=== PATIENT | male | born 1985 | race Caucasian/White ===

== ENCOUNTER 2019-08-04 13:53 | Emergency (ER) | payer MEDICAID, SELFPAY ==
[2019-08-04 13:59] VITALS: BP 144/102; PULSE 73; RESP 17; TEMP 36.8; O2SAT 99; BMI 31.6
--- NOTE | 2019-08-04 14:03 | W.ED.BACK ---
HPI - Back Pain/Injury General: Chief Complaint: Back Pain/Injury Stated Complaint: low back pain/tingling l leg Time Seen by Provider: 08/04/19 14:03 Source: patient Mode of arrival: ambulatory Limitations: no limitations History of Present Illness: HPI Narrative: Patient comes in today for complaints of low back pain in the left lower back radiating down his leg. 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 Since that time he has had increasing pain to the lower back now with some radiation and numbness down the left leg. Patient denies any bowel or bladder problems. Patient appears well. Patient reports he had seen his primary care yesterday and started on some 800 ibuprofen and a muscle relaxer but has not noticed much relief today. Review of Systems General: Reports: 10 or more systems reviewed and unremarkable except in HPI and below Musc: Reports: back pain PFSH ED PFSH: Social History Smoking and tobacco status: current every day smoker Physical Exam Const: COMMON NORMALS: no acute distress and patient oriented x3 GENERAL APPEARANCE: cooperative HENMT: COMMON NORMALS: normocephalic, TM's normal bilaterally and Normal external nose present HEAD & SCALP: normal to inspection and normocephalic NOSE: Normal external nose present TYMPANIC MEMBRANE: TM's normal bilaterally MOUTH: Normal oral and palatal mucosa present THROAT: posterior oropharynx normal Eye: GENERAL EYE: appearance normal, both eyes and all related structures Neck/C-Spine: COMMON NORMALS: full ROM Lymph: LYMPHATIC: no lymphadenopathy noted Chest: COMMONS NORMALS: normal inspection of the chest Resp: COMMON NORMALS: normal respiratory effort EFFORT & INSPECTION: Yes able to speak in complete sentences Cardio: COMMON NORMALS: regular rate and regular rhythm RATE: regular rate RHYTHM: regular rhythm GI: COMMON NORMALS: non-tender Back/Pelvis: LUMBAR SPINE/LOWER BACK: Yes paraspinal muscle tenderness Lumbar paraspinal muscle tenderness: left and Yes straight leg raise positive left Straight leg raise positive details left: at 50 degrees Extremity: COMMON NORMALS: normal to inspection Neuro: COMMON NORMALS: patient oriented x3 and moves all extremities Psych: COMMON NORMALS: mental status grossly normal and cooperative Skin: COMMON NORMALS: no rashes or lesions noted GENERAL SKIN EXAM: no rashes or lesions noted Course Vital Signs: Vital signs: Vital Signs Temperature 98.3 F 08/04/19 13:59 Pulse Rate 64 08/04/19 14:41 Respiratory Rate 16 08/04/19 14:41 Blood Pressure 142/74 08/04/19 14:41 Pulse Oximetry 97 08/04/19 14:41 MDM - Back Pain/Injury MDM Narrative: Medical decision making narrative: Patient comes in today for complaints of low back pain with some radiation of numbness and tingling down the left leg. Patient appears well. Patient appears in mild to moderate pain. Patient is ambulatory. Vital signs are normal. Differential diagnosis includes intervertebral disc disease, facet arthropathy, paralumbar muscle strain. X-rays no fracture of the vertebra, some mild retrolisthesis of the L5-S1 area. Reviewed exam with patient recommended treatment with continue to ibuprofen and muscle relaxer. Patient was written a prescription for some hydrocodone to use at bedtime for comfort. Patient was given a dose of dexamethasone ketorolac in the ER for immediate pain and inflammation. Patient was recommended to follow-up with primary care. Patient reported understanding of need for follow-up or return to the ER. Discharge Plan Discharge Patient Disposition: Home, Self-Care Clinical Impression: Lumbar radiculopathy Condition: Stable Prescriptions: New hydrocodone-acetaminophen 5-325 mg tablet 1 tab PO Q8H PRN (Reason: pain, severe) Qty: 6 RF: 0 No Action No Known Home Medications RF: 0 Discharge Orders: Discharge Order (Routine); Ordered 08/04/19 Ordered By: Fredo Weir Referrals: DENISE FLYNN, [employer] OFFICER [Family Provider] - Discharge Diet: Usual diet Discharge Activity: Increase activity as tolerated Patient Instructions: Back Pain (ED) Activity Restrictions/Additional Instructions: Maintain activity. Drink plenty of water with medications. Gentle stretching and range of motion of the back daily. Use ice or heat for further comfort. Follow-up with primary care in 1 week. Return to the ER for high fever or loss of bowel or bladder control. Coding Level of Care Code ED Nuclear Operator for Kelly Alcantara Exam Comprehensive
--- NOTE | 2019-08-04 14:17 | XR_ITS ---
WS: [id number] XR lumbar spine 2-3V* [id number] REASON FOR EXAM: pain, injury FINDINGS: Mild retrolisthesis L5 on S1. Remaining vertebral bodies and disc spaces are normal. The lumbosacral angle was normal. The lamina, pedicle, transverse process, and spinous processes are all normal. The sacroiliac joints appear to be normal. XR/XR lumbar spine 2-3V* [id number] IMPRESSION: Mild retrolisthesis L5 on S1
[2019-08-04] MEDS: dexamethasone 10 mg/mL INJ IM (14:38)
[2019-08-04] MEDS: ketorolac 30 mg/mL INJ IM (14:38)
[2019-08-04 14:41] VITALS: BP 142/74; PULSE 64; RESP 16; O2SAT 97
[2019-08-04 15:15] VITALS: BP 129/74; PULSE 62; RESP 16; TEMP 36.8; O2SAT 96
== END 2019-08-04 15:17 | disposition home or self-care (01) ==
PROVIDERS: Emergency Provider Nurse Practitioner Family; Family Provider Nurse Practitioner Family
DX: M54.16 Radiculopathy, lumbar region (principal); F17.210 Nicotine dependence, cigarettes, uncomplicated
CPT/HCPCS: 12345; 72100; 96372; 99281; 99283; J1100; J1885

== ENCOUNTER 2019-09-24 16:48 | Outpatient (CLI) | payer MEDICAID, SELFPAY ==
--- NOTE | 2019-09-24 | XRR_ITS ---
PROCEDURE INFORMATION: Exam: XR Left Foot Complete Exam date and time: 09/24/2019 5:06 PM Age: 34 years old Clinical indication: Injury or trauma; Injury history: Cart rolled over foot; Work related; Initial encounter; Crushing; Bilateral; Additional info: Pain TECHNIQUE: Imaging protocol: XR Left foot. Views: 3 or more views. COMPARISON: No relevant prior studies available. FINDINGS: Bones/joints: Normal. Soft tissues: There is some mild soft tissue swelling.. XR/XR foot LT min 3V* [id number] IMPRESSION: No acute findings.
== END 2019-09-24 16:49 | disposition home or self-care (01) ==
LOC: RAD 16:51
PROVIDERS: Family Provider Nurse Practitioner Family; Visit Provider Nurse Practitioner Family
DX: M79.672 Pain in left foot (principal)
CPT/HCPCS: 73630

== ENCOUNTER 2019-10-04 19:21 | Emergency (ER) | payer MEDICAID, SELFPAY ==
[2019-10-04 19:33] VITALS: BP 148/97; PULSE 92; RESP 17; TEMP 36.8; O2SAT 98; BMI 32.8
--- NOTE | 2019-10-04 19:40 | XRR_ITS ---
PROCEDURE INFORMATION: Exam: XR Chest, 1 View Exam date and time: 10/04/2019 8:18 PM Age: 34 years old Clinical indication: Type not specified; Patient HX: C/O chest pain starting today TECHNIQUE: Imaging protocol: XR of the chest Views: 1 view. COMPARISON: CR Chest 1 [place] [id number] 10/28/2018 9:58 PM FINDINGS: Lungs: Mild interstitial prominence without acute airspace disease. Pleural space: No pleural effusion. Heart/Mediastinum: No cardiomegaly. Bones/joints: Unremarkable. Soft tissues: 4 mm nodular metallic density overlying the right axillary region. When correlating with the previous study, no significant interval changes are present. XR/XR chest 1V portable [id number] IMPRESSION: No acute airspace or pleural disease.
--- NOTE | 2019-10-04 19:40 | ECG_ITS ---
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 Measurements Intervals [place] Rate: 91 P: 64 IL: 152 QRS: 17 QRSD: 96 T: 33 QT: 330 QTc: 408 Interpretive Statements SINUS RHYTHM INCOMPLETE RIGHT BUNDLE BRANCH BLOCK [90+ ms QRS DURATION, TERMINAL R IN V1/V2, 40+ ms S IN I/aVL/V4/V5/V6] NONSPECIFIC T-WAVE ABNORMALITY Compared to ECG 07/17/2018 23:06:05 T-wave abnormality now present Electronically Signed On 10-04-2019 20:34:40 CDT by Claudia Nicole M.D. [id number]
[2019-10-04 19:47] VITALS: BP 138/93; PULSE 85; RESP 14; O2SAT 99
[2019-10-04 19:54] LABS: Basophils # 0.1 10^3/uL (0.0-0.1); Basophils % 0.8 %; Eosinophils # 0.3 10^3/uL (0.0-0.8); Eosinophils % 4.1 %; Hematocrit 45.3 % (42.0-52.0); Hemoglobin 14.9 g/dL (11.7-16.6); Lymphocytes % 30.9 %; Mean Corpuscular HGB Conc 32.9 g/dL (30.0-36.0); Mean Corpuscular Hemoglobin 29.6 pg (28.0-34.0); Mean Corpuscular Volume 89.9 fL (80-94); Mean Platelet Volume 11.5 fL (7.4-10.4); Monocytes # 0.5 10^3/uL (0.2-0.9); Monocytes % 7.8 %; Neutrophils # 3.67 10^3/uL (1.8-7.7); Neutrophils % 56.1 %; Nucleated Red Blood Cells % 0 %; Platelet Count 282 10^3/cmm (130-400); Red Blood Count 5.04 10^6/uL (4.1-5.3); White Blood Count 6.5 10^3/uL (4.0-10.0)
--- NOTE | 2019-10-04 20:06 | ED_ITS ---
HPI - Chest Pain General: Chief Complaint: Chest Pain Stated Complaint: cp Time Seen by Provider: 10/04/19 19:39 History of Present Illness: HPI narrative: This patient is a 34-year-old male presenting with chest pain. He works overnight and was working last night about 1:00 a.m. After eating lunch and smoking a cigarette he developed sudden onset of substernal chest pain that caused him to feel lightheaded. 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 It worsened over time and he was sweating and short of breath. He got sent home from work but was unable to sleep due to discomfort. He said the pain has been constant all day long and only relieved slightly by rest. He had a heart attack about a year ago. He had a cardiac cath at [facility] in [place] but did not have a stent placed. He said they told him that they could see where the blockage had been but it was gone when they got to it. He was put on blood pressure medicine which she is no longer taking. He continues to smoke. His pain today feels similar to when he had the heart attack. MD complaint: chest pain Pertinent past history: prior NE Onset (ago): hour(s) (18) Timing of current episode: constant Prior episodes: Yes Onset: during rest and after eating Pain radiation: left arm Quality: tightness, aching and heaviness Associated symptoms: Deny abdominal pain, dyspnea, fever(s), nausea or vomiting Review of Systems General: Reports: 10 or more systems reviewed and unremarkable except in HPI and below Const: Denies: fever(s), chills, fatigue or malaise Eyes: Denies: change in vision ENMT: Denies: odynophagia Card: Denies: chest pain or swelling of feet/ankles Resp: Denies: dyspnea, productive cough or non-productive cough GI: Denies: abdominal pain, nausea or vomiting : Denies: flank pain Musc: Denies: neck pain or back pain Skin/Breast: Denies: rash Neuro: Denies: headache(s), numbness in extremities or weakness in extremities Donnie/Lymph: Denies: easy bruising or easy bleeding PFSH ED PFSH: Social History Smoking and tobacco status: current every day smoker Physical Exam Const: COMMON NORMALS: no acute distress, patient oriented x3, no limitations and alert GENERAL APPEARANCE: cooperative and comfortable HENMT: HEAD & SCALP: normal to inspection FACE & SINUS: normal facial exam Eye: GENERAL EYE: appearance normal, both eyes and all related structures Neck/C-Spine: COMMON NORMALS: supple, no meningeal signs and no JVD Chest: COMMONS NORMALS: normal inspection of the chest Resp: COMMON NORMALS: normal respiratory effort, No use of accessory muscles and clear to auscultation bilaterally AUSCULTATION: clear to auscultation bilaterally Cardio: COMMON NORMALS: no JVD, regular rate, regular rhythm and No murmurs present (Cardio) RATE: regular rate RHYTHM: regular rhythm GI: COMMON NORMALS: Normal to inspection, nondistended, normoactive bowel sounds present, Soft to palpation and non-tender INSPECTION: Yes normal to inspection AUSCULTATION: Yes normoactive bowel sounds PALPATION: Yes Soft to palpation Back/Pelvis: COMMON NORMALS: thoracic and lumbar spine normal to inspection Extremity: COMMON NORMALS: normal to inspection Neuro: COMMON NORMALS: patient oriented x3, moves all extremities, no focal motor deficits and no sensory deficits noted SENSORIUM/ORIENTATION: Yes alert MENINGEAL SIGNS: Yes no meningeal signs Psych: COMMON NORMALS: mental status grossly normal, cooperative and normal affect Skin: COMMON NORMALS: no rashes or lesions noted and turgor normal GENERAL SKIN EXAM: no rashes or lesions noted and turgor normal Course ED course: This patient presents with chest pain. He reports that he had a heart attack a year ago and had a cath but no stenting. He has been having constant pain all day. I suspect this may be more gastric in origin than cardiac. EKG and troponins were negative. We discussed that he should be foll owing up with a licensed club manager and have stress testing if he continues to have any symptoms. We will try treating gastritis empirically. Vital Signs: Vital signs: Vital Signs Temperature 98.2 F 10/04/19 19:33 Pulse Rate 65 10/04/19 22:30 Respiratory Rate 16 10/04/19 22:30 Blood Pressure 114/75 10/04/19 22:30 Pulse Oximetry 99 10/04/19 22:30 MDM - Chest Pain Lab Data: Labs: Lab Results 10/04/19 10/04/19 10/04/19 Range/Units 19:48 19:48 19:48 WBC 6.5 (4.0-10.0) 10^3/ uL RBC 5.04 (4.1-5.3) 10^6/u L Hgb 14.9 (11.7-16.6) g/dL Hct 45.3 (42.0-52.0) % MCV 89.9 (80-94) fL MCH 29.6 (28.0-34.0) pg MCHC 32.9 (30.0-36.0) g/dL RDW 12.0 L (12.1-15.1) % Plt Count 282 (130-400) 10^3/c mm MPV 11.5 H (7.4-10.4) fL Neut % (Auto) 56.1 % Lymph % (Auto) 30.9 % Bond % (Auto) 7.8 % Eos % (Auto) 4.1 % Baso % (Auto) 0.8 % Neut # (Auto) 3.67 (1.8-7.7) 10^3/u L Lymph # (Auto) 2.0 (0.8-4.8) 10^3/u L Bond # (Auto) 0.5 (0.2-0.9) 10^3/u L Eos # (Auto) 0.3 (0.0-0.8) 10^3/u L Baso # (Auto) 0.1 (0.0-0.1) 10^3/u L Nucleated RBC % (a uto) 0 % Nucleated RBCs # 0.0 /100WBC Sodium 136 (136-145) mmol/L Potassium 3.9 (3.5-5.1) mmol/L Chloride 99 (98-107) mmol/L Carbon Dioxide 26 (22-29) mmol/L Anion Gap 14.9 (5-19) BUN 12 (6-20) mg/dL Creatinine 0.9 (0.7-1.2) mg/dL GFR Calculation 95.5 (90-130) mL/min Glucose 104 (65-115) mg/dL Calculated Osmolal ity 278 L (285-295) mOsm/k g Calcium 9.2 (8.5-10.5) mg/dL Total Bilirubin 0.5 (0.15-1.2) mg/dL AST 20 (0-40) U/L ALT 40 (0-41) U/L Alkaline Phosphata se 60 (40-130) IU/L Troponin T Baselin e 6 (0-15) ng/L Troponin T 120 Min chilkoot (0-15) ng/L Delta Troponin T (0-10) ABS# Total Protein 7.2 (6.6-8.7) g/dL Albumin 5.0 (3.5-5.2) g/dL Globulin 2.2 (1.3-4.6) g/dL Lipase 23 (13-60) U/L 10/04/19 Range/Units 22:00 WBC (4.0-10.0) 10^3/ uL RBC (4.1-5.3) 10^6/u L Hgb (11.7-16.6) g/dL Hct (42.0-52.0) % MCV (80-94) fL MCH (28.0-34.0) pg MCHC (30.0-36.0) g/dL RDW (12.1-15.1) % Plt Count (130-400) 10^3/c mm MPV (7.4-10.4) fL Neut % (Auto) % Lymph % (Auto) % Bond % (Auto) % Eos % (Auto) % Baso % (Auto) % Neut # (Auto) (1.8-7.7) 10^3/u L Lymph # (Auto) (0.8-4.8) 10^3/u L Bond # (Auto) (0.2-0.9) 10^3/u L Eos # (Auto) (0.0-0.8) 10^3/u L Baso # (Auto) (0.0-0.1) 10^3/u L Nucleated RBC % (a uto) % Nucleated RBCs # /100WBC Sodium (136-145) mmol/L Potassium (3.5-5.1) mmol/L Chloride (98-107) mmol/L Carbon Dioxide (22-29) mmol/L Anion Gap (5-19) BUN (6-20) mg/dL Creatinine (0.7-1.2) mg/dL GFR Calculation (90-130) mL/min Glucose (65-115) mg/dL Calculated Osmolal ity (285-295) mOsm/k g Calcium (8.5-10.5) mg/dL Total Bilirubin (0.15-1.2) mg/dL AST (0-40) U/L ALT (0-41) U/L Alkaline Phosphata se (40-130) IU/L Troponin T Baselin e (0-15) ng/L Troponin T 120 Min chilkoot 6.00 (0-15) ng/L Delta Troponin T 0 (0-10) ABS# Total Protein (6.6-8.7) g/dL Albumin (3.5-5.2) g/dL Globulin (1.3-4.6) g/dL Lipase (13-60) U/L Discharge Plan Discharge Patient Disposition: Home Clinical Impression: Chest pain Qualifiers: Chest pain type: unspecified Qualified Code(s): R07.9 - Chest pain, unspecified Gastritis Qualifiers: Gastritis type: unspecified gastritis Chronicity: acute Gastritis bleeding: presence of bleeding unspecified Qualified Code(s): K29.00 - Acute gastritis without bleeding Condition: Stable Prescriptions: New omeprazole 40 mg capsule,delayed release(DR/EC) 40 mg PO DAILY 56 Days Qty: 60 RF: 0 No Action hydrocodone-acetaminophen 5-325 mg tablet 1 tab PO Q8H PRN (Reason: pain, severe) Qty: 6 RF: 0 Discharge Orders: Discharge Order (Routine); Ordered 10/04/19 Ordered By: Joyce Johnson Referrals: DENISE FLYNN, WASTE WATER OR WATER PLANT OPERATOR [Primary Care Provider] - Discharge Diet: Low Fat Discharge Activity: Resume usual activity Patient Instructions: Chest Pain (ED), Gastritis (ED) Activity Restrictions/Additional Instructions: Possible further testing given your history of heart problems. Rest. Avoid spicy or fatty foods. Quit smoking. Avoid taking ibuprofen or naproxen as these can irritate your stomach. Take the omeprazole as prescribed. Return to the emergency department if new or worse symptoms occur. Follow-up with your primary care provider within the next few days Stand Alone Forms: Work/School Release Discharge Date/Time: 10/04/19 23:11 Coding Level of Care Code ED Courtroom Clerk for Kelly Fwd Exam Comprehensive
[2019-10-04 20:15] LABS: Alanine Aminotransferase 40 U/L (0-41); Alkaline Phosphatase 60 IU/L (40-130); Anion Gap 14.9 (5-19); Aspartate Amino Transferase 20 U/L (0-40); Blood Urea Nitrogen 12 mg/dL (6-20); Calcium 9.2 mg/dL (8.5-10.5); Carbon Dioxide 26 mmol/L (22-29); Chloride 99 mmol/L (98-107); Globulin 2.2 g/dL (1.3-4.6); Glomerular Filtration Rate 95.5 mL/min (90-130); Glucose 104 mg/dL (65-115); Lipase 23 U/L (13-60); Osmolality Calculated 278 mOsm/kg (285-295); Potassium 3.9 mmol/L (3.5-5.1); Sodium 136 mmol/L (136-145); Total Bilirubin 0.5 mg/dL (0.15-1.2); Total Protein 7.2 g/dL (6.6-8.7)
[2019-10-04 20:18] LABS: Troponin(5th) Baseline 6 ng/L (0-15)
[2019-10-04 20:24] VITALS: RESP 14; O2SAT 99
[2019-10-04] MEDS: ondansetron 2 mg/ML SDV 2 mL 4 MG IVP (20:24)
[2019-10-04] MEDS: morphine 4 mg/mL SDV 1 mL IVP (20:24)
[2019-10-04] MEDS: famotidine 20 mg/2 mL INJ 40 MG IVP (20:25)
[2019-10-04 20:30] VITALS: BP 134/84; PULSE 73; RESP 15; O2SAT 99
[2019-10-04 21:30] VITALS: BP 138/81; PULSE 72; RESP 18; O2SAT 99
--- NOTE | 2019-10-04 21:40 | ECG_ITS ---
[facility] Test Date: 2019-10-04 Pat Name: Elian Parson Department: Room: Gender: Male Behavioral Pediatrician: : 1985 Requested By: Joyce Delgado Order Number: [id number] Landry MD: Diamond Larry M.D. Measurements Intervals [place] Rate: 60 P: 45 ID: [id number] QRS: 18 QRSD: 105 T: 31 QT: 400 QTc: 402 Interpretive Statements SINUS RHYTHM Compared to ECG 10/04/2019 19:31:56 Incomplete right bundle-branch block no longer present T-wave abnormality no longer present Electronically Signed On 10-05-2019 12:56:24 CDT by Diamond Larry M.D. [email or web address] [email or web address]/store/OM/[id number]
--- NOTE | 2019-10-04 21:57 | PC.NURSE ---
EKG done at 2155 and shown to ER doctor
[2019-10-04 22:24] LABS: Troponin 5 2HR Delta 0 ABS# (0-10)
[2019-10-04 22:30] VITALS: BP 114/75; PULSE 65; RESP 16; O2SAT 99
[2019-10-04] MEDS: lidocaine 2% viscous 15 ML, aluminum-mag hydrox-simethicon 30 ML, sucralfate oral liq 1 GM PO (22:59)
== END 2019-10-04 23:11 | disposition home or self-care (01) ==
PROVIDERS: Emergency Provider Emergency Medicine; PCP Nurse Practitioner Family
DX: R07.9 Chest pain, unspecified (principal); K29.00 Acute gastritis without bleeding; F17.210 Nicotine dependence, cigarettes, uncomplicated
CPT/HCPCS: 12345; 36415; 71045; 80053; 83690; 84484; 85025; 93005; 96374; 96375; 99283; 99284; J2270; J2405; J3490

== ENCOUNTER 2019-10-12 12:05 | Outpatient (CLI) | payer MEDICAID, SELFPAY ==
[2019-10-12 12:15] VITALS: BMI 31.3
--- NOTE | 2019-10-12 12:16 | ECG_ITS ---
[facility] Test Date: 2019-10-12 Pat Name: Elian Parson Department: Room: Gender: Male Machine Technician: : 1985 Requested By: DENISE Mendoza Order Number: [id number] Landry MD: Eder Mcleod M.D. Interpretive Statements NAME OF STUDY: TREADMILL STRESS TEST INDICATION: Exertional Chest Pain/SOB/HTN/FAMILY H/O CAD, EXERCISE DATA: The patient was exercised by [employer] protocol. Baseline heart rate was 70 beats per minute. Baseline blood pressure was 125/71 millimeters of mercury. Target heart rate was 184 beats per minute. Maximum heart rate achieved was 165, which was 89 % of the target heart rate. Maximum blood pressure was 213/75 millimeters of mercury. Total exercise time was 6 minutes 45. Maximum METs achieved was 10.2, maximum VO2 was 35.7. The reason for ending the test was maximum effort achieved. The patient complained of shortness of during the stress test, which then resolved at the end of the test. ELECTROCARDIOGRAM: BASELINE: Sinus rhythm, normal axis, incomplete right bundle branch block. EXERCISE: At the peak exercise level, no significant ST-T changes suggestive of ischemia noted. RECOVERY: During the recovery period, heart rate dropped appropriately. No significant ST-T changes in the recovery suggestive of ischemia noted. CONCLUSION: 1. Exercise capacity fair. 2. Heart rate response was appropriate. 3. Blood pressure response was hypertensive 4. Symptoms not suggestive of ischemia. 5. Electrocardiogram portion of the stress test was not suggestive of ischemia. Electronically Signed On 10-12-2019 22:28:39 CDT by Eder Mcleod M.D. [email or web address]/[id number]
--- NOTE | 2019-10-12 12:17 | USCV_ITS ---
Elian Parson Age: 34 Gender: M : 1985 Exam Date: 10/12/2019 12:34 Ordering Phys: DENISE FLYNN Technologist: Jelani Helms Exam Location: [facility] Indication: CHEST PAIN BP: 125 / 71 HR: 87 Rhythm: Sinus Technical Quality: Adequate MEASUREMENTS (Male / Female) Normal Values 2D ECHO LV Diastolic Diameter PLAX 4.2 cm 4.2 - 5.9 / 3.9 - 5.3 cm LV Systolic Diameter PLAX 2.9 cm IVS Diastolic Thickness 0.9 cm 0.6 - 1.0 / 0.6 - 0.9 cm IVS Systolic Thickness 1.1 cm LVPW Diastolic Thickness 0.9 cm 0.6 - 1.0 / 0.6 - 0.9 cm LVPW Systolic Thickness 1.0 cm LVOT Diameter 2.0 cm LV Ejection Fraction 2D Teich 58.5 % LV Ejection Fraction MOD 2C 57.0 % LV Ejection Fraction 2C AL 58.0 % LA Diameter 3.0 cm LA Width 3.9 cm LA Height 3.7 cm RA Width 3.2 cm RA Height 5.1 cm Aorta at Sinotubular Diameter 1.1 cm M-MODE LV Diastolic Diameter MM 4.7 cm 4.2 - 5.9 / 3.9 - 5.3 cm LV Systolic Diameter MM 2.9 cm LV Ejection Fraction MM Teich 70.0 % IVS Diastolic Thickness MM 1.2 cm 0.6 - 1.0 / 0.6 - 0.9 cm IVS Systolic Thickness MM 1.7 cm LVPW Diastolic Thickness MM 1.1 cm 0.6 - 1.0 / 0.6 - 0.9 cm LVPW Systolic Thickness MM 1.6 cm RV Diastolic Diameter MM 1.8 cm Aortic Annulus Diameter 2.9 cm LA Ao Ratio MM 1.0 MV E Point Septal Separation 0.8 cm DOPPLER AV Peak Velocity 125.0 cm/s LVOT Peak Velocity 86.0 cm/s AV Area Cont Eq vti 2.1 cm squared AV Area Cont Eq pk 2.2 cm squared MV Area PHT 5.0 cm squared Mitral E to A Ratio 1.2 MV E' Velocity 64.0 cm/s Mitral E to MV E' Ratio 4.7 Mitral E to LV E' Lateral Ratio 3.6 Mitral E to LV E' Septal Ratio 6.6 TR Peak Velocity 156.0 cm/s TR Peak Gradient 9.7 mmHg TV Peak E Velocity 92.0 cm/s Right Atrial Pressure 3.0 mmHg Pulmonary Artery Systolic Pressu 12.7 mmHg PV Peak Velocity 125.0 cm/s FINDINGS Left Ventricle Normal left ventricular cavity size. Normal left ventricular systolic function. No regional wall motion abnormalities. Left ventricular ejection fraction is estimated at 60 %. Normal diastolic function. Right Ventricle The right ventricle is normal in size and function. Right Atrium The right atrium is normal in size. Left Atrium The left atrium is normal in size. Mitral Valve Structurally normal mitral valve without significant stenosis or prolapse. There is no mitral regurgitation. Aortic Valve Structurally normal aortic valve without significant sclerosis or stenosis. There is no aortic regurgitation. Tricuspid Valve Mild tricuspid valve regurgitation. Pulmonic Valve Structurally normal pulmonic valve without significant stenosis. There is no pulmonic regurgitation. Pericardium Normal pericardium without effusion. Aorta Normal ascending aorta dimension. CONCLUSIONS 1-Normal left ventricular cavity size. Normal left ventricular systolic function. No regional wall motion abnormalities. Left ventricular ejection fraction is estimated at 60 %. Normal diastolic function. 2-There is no pericardial effusion. 3-No significant valve abnormalities. 4-Pulmonary artery systolic pressure is within normal limits. 5-Right atrial pressure is around 5 mm of mercury. 6-No significant change since the prior echocardiogram study of 01/13/2017. Eder Mcleod MD (Electronically Signed) Final Date: 12 October 2019 20:21 S
[2019-10-12 12:42] VITALS: BP 163/99; PULSE 98
== END 2019-10-12 12:06 | disposition home or self-care (01) ==
LOC: CDL 12:07
PROVIDERS: PCP Nurse Practitioner Family; Visit Provider Nurse Practitioner Family
DX: R07.89 Other chest pain (principal); Z82.49 Family history of ischemic heart disease and other diseases of the circulatory system; F17.209 Nicotine dependence, unspecified, with unspecified nicotine-induced disorders; R06.02 Shortness of breath; I10 Essential (primary) hypertension
CPT/HCPCS: 93017; 93306

== ENCOUNTER 2020-01-06 12:55 | Outpatient (CLI) | payer MEDICAID, SELFPAY ==
--- NOTE | 2020-01-06 13:06 | XR_ITS ---
WS: [id number] XR ribs RT 2V* [id number] REASON FOR EXAM: injury with pain FINDINGS: No fracture or other focal rib abnormality is identified. No abnormality within the right lung. XR/XR ribs RT 2V* [id number] IMPRESSION: No significant abnormality.
== END 2020-01-06 12:56 | disposition home or self-care (01) ==
LOC: RAD 13:04
PROVIDERS: PCP Nurse Practitioner Family; Visit Provider Nurse Practitioner
DX: S20.211A Contusion of right front wall of thorax, initial encounter (principal); X58.XXXA Exposure to other specified factors, initial encounter
CPT/HCPCS: 71100

== ENCOUNTER 2020-01-19 12:54 | Emergency (ER) | payer MEDICAID, SELFPAY ==
[2020-01-19 13:00] VITALS: BP 148/97; PULSE 83; RESP 18; TEMP 36.5; O2SAT 98; BMI 29.7
--- NOTE | 2020-01-19 13:24 | W.ED.BACK ---
HPI - Back Pain/Injury General: Chief Complaint: Back Pain/Injury Stated Complaint: BACK INJURY 1 MO AGO, SYMPTOMS GETTING WORSE Time Seen by Provider: 01/19/20 13:17 History of Present Illness: HPI Narrative: Patient is a 34-year-old male comes to the ED with lower back pain. He initially injured back approximately 4 to 5 months ago and was seen here in the ED for same complaint on August 03. He says his pain in his lower back is continue to get worse and he seen his PCP and she has put him on muscle relaxers they are not helping. The last couple days patient has had 2 episodes where he had a says that his legs give out on him any falls down onto his tailbone. He says he has pain that radiates down both legs and pain is a 10 out of 10. Denies any pelvic anesthesia, bladder or bowel incontinence, weakness to extremities. Patient says he took Tylenol recently for pain. Associated symptoms: Deny abdominal pain, chills, dysuria, fatigue, fever(s), hematuria, nausea or vomiting Review of Systems Const: Denies: fever(s), chills or fatigue Eyes: Denies: change in vision or eye discomfort ENMT: Denies: throat pain, odynophagia, nasal discharge or nasal congestion Card: Denies: chest pain, palpitations, edema, swelling of feet/ankles, dyspnea on exertion or orthopnea Resp: Denies: dyspnea, productive cough or non-productive cough GI: Denies: abdominal pain, nausea, vomiting, diarrhea, constipation or hematochezia : Denies: flank pain, difficulty urinating, dysuria or hematuria Musc: Reports: back pain; Denies: neck pain or extremity swelling Skin/Breast: Denies: rash or new lesions Neuro: Denies: headache(s), numbness in extremities or weakness in extremities PFS ED PFSH: Social History Smoking and tobacco status: current every day smoker Physical Exam Const: COMMON NORMALS: no acute distress, patient oriented x3 and alert GENERAL APPEARANCE: cooperative and comfortable HENMT: COMMON NORMALS: normocephalic HEAD & SCALP: normocephalic MOUTH: Normal oral and palatal mucosa present THROAT: posterior oropharynx normal and uvula midline Eye: COMMON NORMALS: Equal, round and reactive pupils present PUPIL: Yes Equal, round and reactive pupils present Neck/C-Spine: COMMON NORMALS: supple GENERAL: Yes normal visual inspection Resp: COMMON NORMALS: normal respiratory effort, No retractions, No use of accessory muscles and clear to auscultation bilaterally AUSCULTATION: clear to auscultation bilaterally Cardio: COMMON NORMALS: regular rate, regular rhythm, S1 normal heart sound present, S2 normal heart sound present, No gallops present (Cardio), No clicks present (Cardio), No murmurs present (Cardio) and Peripheral pulses 2+ throughout RATE: regular rate RHYTHM: regular rhythm HEART SOUNDS: S1 normal heart sound present and S2 normal heart sound present PERIPHERAL PULSES: Peripheral pulses 2+ throughout GI: COMMON NORMALS: Normal to inspection, nondistended, normoactive bowel sounds present, Soft to palpation, non-tender and no masses PALPATION: Yes Soft to palpation : COMMON NORMALS: Yes no CVA tenderness BLADDER/KIDNEY EXAM: Yes no CVA tenderness Back/Pelvis: COMMON NORMALS: no CVA tenderness LUMBAR SPINE/LOWER BACK: Yes pain with ROM, Yes lumbar spinal tenderness Lumbar spinal tenderness location: L4 and L5 and Yes paraspinal muscle tenderness Extremity: COMMON NORMALS: normal to inspection Neuro: COMMON NORMALS: patient oriented x3 and moves all extremities SENSORIUM/ORIENTATION: Yes alert Skin: GENERAL SKIN EXAM: dry skin Course Vital Signs: Vital signs: Vital Signs Temperature 97.7 F 01/19/20 13:00 Pulse Rate 83 01/19/20 13:00 Respiratory Rate 18 01/19/20 13:00 Blood Pressure 148/97 01/19/20 13:00 Pulse Oximetry 98 01/19/20 13:00 MDM - Back Pain/Injury MDM Narrative: Medical decision making narrative: Patient is a 34-year-old male comes to the ED with lower back pain. Patient says he injured back several months ago after doing some heavy lifting. He has been seen here before for same complaint on August 03. He has had 2 recent instances where his legs gave out on him and he fell down and hit his tailbone. Denies any cauda equina symptoms. He does say the pain radiates down into both legs. CT of the lumbar spine was performed and showed no acute fractures and there is moderate size disc protrusion at L5 and S1 with minimal contact of S1 nerve root. Patient was diagnosed with lumbar radiculopathy and sent home with a prescription for methocarbamol and Medrol Dosepak. Follow-up with PCP in 7 to 10 days for reevaluation. Return to ED precautions given. Patient understood and agreed with plan. Imaging Data^: Other CT: Attestation: I personally reviewed and interpreted this imaging study as follows: Radiologist's impression: [address] [address] [address] Scan Report Signed Patient: Elian Parson Unit #: [id number] : 1985 Age/Sex: 34 / M ADM Date: 01/19/20 Loc: ER Room/Bed: Attending Dr: Ordering Provider/Ordering MD: Jamie Pritchett Date of Service: 01/19/20 Procedure(s): CT lumbar spine wo con* [id number] Accession Number(s): [id number] Report Number: [id number] WS: [id number] CT LUMBAR SPINE, noncontrast. HISTORY: lumbar spine tenderness with injury TECHNIQUE: Contiguous 2.5 mm axial imaging are performed. Sagittal and coronal reformats are submitted and reviewed. All CT scans at [facility] use at least one of these dose opt imization techniques: automated exposure control; mA and/or kV adjustment per patient size (includes targeted exams where dose is matched to clinical indication); or iterative reconstruction. IV contrast: None DLP: 2524.46 mGy.cm COMPARISON: None available. Normal lumbar alignment with no loss of disc space height or vertebral body height. L1-2: Normal. L2-3: Normal. L3-4: Normal. L4-5: Normal. L5-S1: Moderate-sized central disc protrusion contacting the ventral thecal sac. There is very slight contact also on the S1 nerve roots bilaterally, RIGHT greater than LEFT with no displacement. No significant stenosis. Bilateral nephrolithiasis. No obstruction. CT/CT lumbar spine wo con* [id number] IMPRESSION: 1. No acute lumbar spine fracture. 2. Moderate size central disc protrusion at L5-S1 with minimal contact but no displacement on the S1 nerve roots. Dictated By: Mónica Camacho DO Signed By: Mónica Camacho DO Signed Date/Time: 01/19/20 1457 DD/ 1453 Discharge Plan Discharge Patient Disposition: Home Clinical Impression: Lumbar radiculopathy Condition: Stable Prescriptions: New Medrol (Parviz) 4 mg tablets,dose pack See Rx Instructions .ROUTE .COMPLEX Qty: 21 RF: 0 methocarbamol 750 mg tablet 750 mg PO Q8H Qty: 30 RF: 0 No Action cyclobenzaprine 10 mg tablet 10 mg PO BID PRN (Reason: muscle spasm) Qty: 10 RF: 0 Discharge Orders: Discharge Order (Routine); Ordered 01/19/20 Ordered By: Jamie Pritchett Referrals: DENISE FLYNN FNP [Primary Care Provider] - Discharge Diet: Regular Discharge Activity: Increase activity as tolerated Patient Instructions: Lumbar Radiculopathy (ED) Activity Restrictions/Additional Instructions: Follow-up with medical provider as directed in 7 to 10 days. Take medications as prescribed. Take [id number] Tylenol to help with pain. Apply cold pack on lower back. Stretch lower back daily to help with symptoms as well. Return to the ER or your medical provider if condition worsens. Please read and understand discharge instructions. If any questions, please ask. Coding Level of Care Code ED Police [employer] Dispatcher for Kelly Fwbrian Exam Comprehensive
--- NOTE | 2020-01-19 13:36 | CT_ITS ---
WS: [id number] CT LUMBAR SPINE, noncontrast. HISTORY: lumbar spine tenderness with injury TECHNIQUE: Contiguous 2.5 mm axial imaging are performed. Sagittal and coronal reformats are submitte d and reviewed. All CT scans at [facility] use at least one of these dose optimization te chniques: automated exposure control; mA and/or kV adjustment per patient size (includes targeted exa ms where dose is matched to clinical indication); or iterative reconstruction. IV contrast: None DLP: 2524.46 mGy.cm COMPARISON: None available. Normal lumbar alignment with no loss of disc space height or vertebral body height. L1-2: Normal. L2-3: Normal. L3-4: Normal. L4-5: Normal. L5-S1: Moderate-sized central disc protrusion contacting the ventral thecal sac. There is very slight contact also on the S1 nerve roots bilaterally, RIGHT greater than LEFT with no displacement. No sig nificant stenosis. Bilateral nephrolithiasis. No obstruction. CT/CT lumbar spine wo con* [id number] IMPRESSION: 1. No acute lumbar spine fracture. 2. Moderate size central disc protrusion at L5-S1 with minimal contact but no displacement on the S1 nerve roots.
[2020-01-19] MEDS: ketorolac 60 mg/2 mL INJ IM (13:47)
[2020-01-19] MEDS: HYDROcodone-acetaminophen 7.5-325 mg Tablet 1 TAB PO (15:25)
== END 2020-01-19 15:28 | disposition home or self-care (01) ==
PROVIDERS: Emergency Provider Physician Assistant; PCP Nurse Practitioner Family
DX: M54.16 Radiculopathy, lumbar region (principal); F17.210 Nicotine dependence, cigarettes, uncomplicated
CPT/HCPCS: 12345; 72131; 96372; 99281; 99283; J1885; J2930

== ENCOUNTER 2020-03-07 10:47 | Outpatient (RCR) | payer BC, MEDICAID, SELFPAY | END 2020-04-02 23:59 | disposition home or self-care (01) | LOC: SPT 10:47 | PROVIDERS: PCP Nurse Practitioner Family; Referring Provider Family Medicine; Visit Provider Family Medicine | DX: M54.16 Radiculopathy, lumbar region (principal); G89.29 Other chronic pain; I10 Essential (primary) hypertension | CPT/HCPCS: 97161 ==

== ENCOUNTER 2020-04-23 15:54 | Emergency (ER) | payer BC, MEDICAID, SELFPAY ==
[2020-04-23 16:03] VITALS: BP 142/80; PULSE 82; RESP 16; TEMP 36.6; O2SAT 98; BMI 30.4
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
[2020-04-23] MEDS: fluorescein 1 mg Strip EYE-LEFT (17:00)
[2020-04-23] MEDS: tetracaine 0.5% Op Soln 4 mL Btl 1 DROP EYE-LEFT (17:00)
[2020-04-23 18:07] VITALS: RESP 18
== END 2020-04-23 18:07 | disposition home or self-care (01) ==
PROVIDERS: Emergency Provider Family Medicine; PCP Nurse Practitioner Family
DX: S05.12XA Contusion of eyeball and orbital tissues, left eye, initial encounter (principal); H53.8 Other visual disturbances; F17.210 Nicotine dependence, cigarettes, uncomplicated; W20.8XXA Other cause of strike by thrown, projected or falling object, initial encounter; Y99.0 Civilian activity done for income or pay
CPT/HCPCS: 70480; 99283

== ENCOUNTER 2020-08-09 18:54 | Emergency (ER) | payer BC, MEDICAID, SELFPAY ==
[2020-08-09] VITALS (7 sets, daily range): BP systolic 113–140; BP diastolic 76–81; PULSE 60–74; RESP 12–23; TEMP 36.9; O2SAT 94–100; BMI 29.0
--- NOTE | 2020-08-09 18:58 | XRR_ITS ---
PROCEDURE INFORMATION: Exam: XR Chest Exam date and time: 08/09/2020 7:01 PM Age: 35 years old Clinical indication: Other: Chest pain; Additional info: Cp TECHNIQUE: Imaging protocol: XR of the chest. Views: 1 view. COMPARISON: CR XR chest 1V portable [id number] 10/04/2019 8:08 PM FINDINGS: Lungs: Unremarkable. No consolidation. Pleural spaces: Unremarkable. No pleural effusion. No pneumothorax. Heart/Mediastinum: Unremarkable. No cardiomegaly. Bones/joints: Unremarkable. Soft tissues: Small round metallic foreign body is again seen projected over the right scapula not significantly changed. XR/XR chest 1V portable [id number] IMPRESSION: No acute findings.
--- NOTE | 2020-08-09 18:58 | ECG_ITS ---
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 Measurements Intervals [place] Rate: 62 P: 49 TX: 165 QRS: 34 QRSD: 99 T: 29 QT: 405 QTc: 412 Interpretive Statements SINUS RHYTHM Compared to ECG 10/04/2019 21:55:44 No significant changes Electronically Signed On 08-10-2020 17:06:18 CDT by Freddy Romero M.D. [id number]
--- NOTE | 2020-08-09 18:59 | ED_ITS ---
HPI - Chest Pain General: Chief Complaint: Chest Pain Stated Complaint: CHEST PAIN Time Seen by Provider: 08/09/20 18:55 Source: patient and EMS Mode of arrival: EMS Limitations: no limitations History of Present Illness: HPI narrative: 35-year-old male states that he started having chest pain earlier today. States he is feeling anxious as well and EMS states they arrived he was hyperventilating. He states his pain was sharp and a 9 out of 10. Does have a history of high blood pressure and is a smoker. Patient's pain since resolved with aspirin and nitro. He denies any worsening improving factors. Denies any recent trips. Denies any cough or fever. Associated symptoms: Deny abdominal pain, dyspnea, fever(s), nausea or vomiting Review of Systems Const: Denies: fever(s), chills, body aches or change in appetite Eyes: Denies: blurry vision or eye discomfort ENMT: Denies: throat pain or dental pain Card: Denies: chest pain Resp: Denies: dyspnea GI: Denies: abdominal pain, nausea, vomiting or diarrhea : Denies: dysuria Musc: Denies: neck pain or back pain Skin/Breast: Denies: rash Neuro: Denies: headache(s) Psych: Denies: depression Donnie/Lymph: Denies: easy bruising All/Imm: Denies: urticaria PFSH ED PFSH: Social History Smoking and tobacco status: current every day smoker Physical Exam Const: COMMON NORMALS: no acute distress, patient oriented x3 and healthy appearing HENMT: COMMON NORMALS: normocephalic and atraumatic HEAD & SCALP: normocephalic and atraumatic Eye: COMMON NORMALS: Equal, round and reactive pupils present and EOMs intact bilaterally PUPIL: Yes Equal, round and reactive pupils present Neck/C-Spine: COMMON NORMALS: full ROM and supple Chest: COMMONS NORMALS: normal inspection of the chest and normal palpation of entire chest wall Resp: COMMON NORMALS: normal respiratory effort, No retractions, No use of accessory muscles and clear to auscultation bilaterally AUSCULTATION: clear to auscultation bilaterally Cardio: COMMON NORMALS: regular rate, regular rhythm and No murmurs present (Cardio) RATE: regular rate RHYTHM: regular rhythm GI: COMMON NORMALS: Normal to inspection, nondistended, normoactive bowel sounds present, Soft to palpation, non-tender and no masses PALPATION: Yes Soft to palpation Extremity: COMMON NORMALS: normal to inspection and full ROM Neuro: COMMON NORMALS: patient oriented x3, moves all extremities and no focal motor deficits Psych: COMMON NORMALS: mental status grossly normal, Normal thought process present and cooperative THOUGHT PROCESS: Normal thought process present Skin: COMMON NORMALS: no rashes or lesions noted and no wounds GENERAL SKIN EXAM: no rashes or lesions noted Course Vital Signs: Vital signs: Vital Signs Temperature 98.4 F 08/09/20 22:41 Pulse Rate 70 08/09/20 22:41 Respiratory Rate 17 08/09/20 22:41 Blood Pressure 140/81 08/09/20 22:41 Pulse Oximetry 95 08/09/20 22:41 MDM - Chest Pain MDM Narrative: Medical decision making narrative: Patient presents for chest pain that is atypical in nature he is well-appearing here. His initial repeat troponins are negative and his D-dimer is negative as well. X-ray here is normal. His pain is resolved and he is stable for discharge. He is to follow- up with his PCP and return if worsening. He understands agrees to plan. Lab Data: Labs: Lab Results 08/09/20 08/09/20 08/09/20 Range/Units 18:43 18:57 18:57 WBC 7.2 (4.0-10.0) 10^3/ uL RBC 5.06 (4.1-5.3) 10^6/u L Hgb 15.5 (11.7-16.6) g/dL Hct 45.2 (42.0-52.0) % MCV 89.3 (80-94) fL MCH 30.6 (28.0-34.0) pg MCHC 34.3 (30.0-36.0) g/dL RDW 12.3 (12.1-15.1) % Plt Count 291 (130-400) 10^3/c mm MPV 11.6 H (7.4-10.4) fL Neut % (Auto) 54.9 % Lymph % (Auto) 30.1 % Ogle % (Auto) 8.6 % Eos % (Auto) 5.4 % Baso % (Auto) 0.7 % Neut # (Auto) 3.98 (1.8-7.7) 10^3/u L Lymph # (Auto) 2.2 (0.8-4.8) 10^3/u L Ogle # (Auto) 0.6 (0.2-0.9) 10^3/u L Eos # (Auto) 0.4 (0.0-0.8) 10^3/u L Baso # (Auto) 0.1 (0.0-0.1) 10^3/u L Nucleated RBC % (a uto) 0 % Nucleated RBCs # 0.0 /100WBC PT 13.00 (12.1-14.9) SECO NDS INR 0.95 (0.8-1.2) D-Dimer <= 0.27 (0-0.59) ug/mIFE U Sodium (136-145) mmol/L Potassium (3.5-5.1) mmol/L Chloride (98-107) mmol/L Carbon Dioxide (22-29) mmol/L Anion Gap (5-19) BUN (6-20) mg/dL Creatinine (0.7-1.2) mg/dL GFR Calculation (90-130) mL/min Glucose (65-115) mg/dL Calculated Osmolal ity (285-295) mOsm/k g Calcium (8.5-10.5) mg/dL Total Bilirubin (0.15-1.2) mg/dL AST (0-40) U/L ALT (0-41) U/L Alkaline Phosphata se (40-130) IU/L Troponin T Baselin e (0-15) ng/L Troponin T 120 Min [place] (0-15) ng/L Delta Troponin T (0-10) ABS# Total Protein (6.6-8.7) g/dL Albumin (3.5-5.2) g/dL Globulin (1.3-4.6) g/dL 08/09/20 08/09/20 08/09/20 Range/Units 18:57 18:57 21:00 WBC (4.0-10.0) 10^3/ uL RBC (4.1-5.3) 10^6/u L Hgb (11.7-16.6) g/dL Hct (42.0-52.0) % MCV (80-94) fL MCH (28.0-34.0) pg MCHC (30.0-36.0) g/dL RDW (12.1-15.1) % Plt Count (130-400) 10^3/c mm MPV (7.4-10.4) fL Neut % (Auto) % Lymph % (Auto) % Ogle % (Auto) % Eos % (Auto) % Baso % (Auto) % Neut # (Auto) (1.8-7.7) 10^3/u L Lymph # (Auto) (0.8-4.8) 10^3/u L Ogle # (Auto) (0.2-0.9) 10^3/u L Eos # (Auto) (0.0-0.8) 10^3/u L Baso # (Auto) (0.0-0.1) 10^3/u L Nucleated RBC % (a uto) % Nucleated RBCs # /100WBC PT (12.1-14.9) SECO NDS INR (0.8-1.2) D-Dimer (0-0.59) ug/mIFE U Sodium 138 (136-145) mmol/L Potassium 3.5 (3.5-5.1) mmol/L Chloride 101 (98-107) mmol/L Carbon Dioxide 23 (22-29) mmol/L Anion Gap 17.5 (5-19) BUN 12 (6-20) mg/dL Creatinine 0.8 (0.7-1.2) mg/dL GFR Calculation 108.8 (90-130) mL/min Glucose 82 (65-115) mg/dL Calculated Osmolal ity 285 (285-295) mOsm/k g Calcium 8.7 (8.5-10.5) mg/dL Total Bilirubin 0.4 (0.15-1.2) mg/dL AST 13 (0-40) U/L ALT 18 (0-41) U/L Alkaline Phosphata se 57 (40-130) IU/L Troponin T Baselin e 6 (0-15) ng/L Troponin T 120 Min [place] 6.00 (0-15) ng/L Delta Troponin T 0 (0-10) ABS# Total Protein 6.7 (6.6-8.7) g/dL Albumin 4.6 (3.5-5.2) g/dL Globulin 2.1 (1.3-4.6) g/dL Imaging Data^: CXR: Attestation: I personally reviewed and interpreted this imaging study as follows: My impression: no acute abnormality EKG Data^: EKG 1: Attestation: I personally reviewed and interpreted this EKG as follows: EKG interpretation date: 08/09/20 EKG interpretation time: 19:05 Interpretation: nsr hr [address] or t wave abnormalities qrs 99 qtc 410 EKG 2: Attestation: I personally reviewed and interpreted this EKG as follows: EKG interpretation date: 08/09/20 EKG interpretation time: 22:27 Interpretation: sinus pacheco hr [address] or t wave abnormalities qrs 105 qtc 417 Discharge Plan Discharge Patient Disposition: Home Clinical Impression: Chest pain Qualifiers: Chest pain type: unspecified Qualified Code(s): R07.9 - Chest pain, unspecified Condition: Stable Prescriptions: No Action No Known Home Medications RF: 0 Discharge Orders: Discharge ED (Routine); Ordered 08/09/20 Ordered By: Jon Pickett Referrals: Misa Andrade PRODUCTION DISPATCHER [Primary Care Provider] - 1-3 days Discharge Diet: Advance as tolerated Discharge Activity: Resume usual activity Patient Instructions: Chest Pain (ED) Coding Level of Care Code ED Alarm Operator for Chg Fwd Exam Comprehensive
[2020-08-09 19:19] LABS: Basophils # 0.1 10^3/uL (0.0-0.1); Basophils % 0.7 %; Eosinophils # 0.4 10^3/uL (0.0-0.8); Eosinophils % 5.4 %; Hematocrit 45.2 % (42.0-52.0); Hemoglobin 15.5 g/dL (11.7-16.6); Lymphocytes # 2.2 10^3/uL (0.8-4.8); Lymphocytes % 30.1 %; Mean Corpuscular HGB Conc 34.3 g/dL (30.0-36.0); Mean Corpuscular Hemoglobin 30.6 pg (28.0-34.0); Mean Corpuscular Volume 89.3 fL (80-94); Mean Platelet Volume 11.6 fL (7.4-10.4); Monocytes # 0.6 10^3/uL (0.2-0.9); Monocytes % 8.6 %; Neutrophils # 3.98 10^3/uL (1.8-7.7); Neutrophils % 54.9 %; Nucleated Red Blood Cells % 0 %; Platelet Count 291 10^3/cmm (130-400); Red Blood Count 5.06 10^6/uL (4.1-5.3); Red Cell Distribution Width 12.3 % (12.1-15.1); White Blood Count 7.2 10^3/uL (4.0-10.0)
[2020-08-09] MEDS: morphine 4 mg/mL SDV 1 mL IVP (19:35)
[2020-08-09 19:44] LABS: INR 0.95 (0.8-1.2)
[2020-08-09 19:56] LABS: Troponin(5th) Baseline 6 ng/L (0-15)
[2020-08-09 19:59] LABS: Alanine Aminotransferase 18 U/L (0-41); Albumin Level 4.6 g/dL (3.5-5.2); Alkaline Phosphatase 57 IU/L (40-130); Anion Gap 17.5 (5-19); Aspartate Amino Transferase 13 U/L (0-40); Blood Urea Nitrogen 12 mg/dL (6-20); Calcium 8.7 mg/dL (8.5-10.5); Carbon Dioxide 23 mmol/L (22-29); Chloride 101 mmol/L (98-107); Globulin 2.1 g/dL (1.3-4.6); Glomerular Filtration Rate 108.8 mL/min (90-130); Glucose 82 mg/dL (65-115); Osmolality Calculated 285 mOsm/kg (285-295); Potassium 3.5 mmol/L (3.5-5.1); Sodium 138 mmol/L (136-145); Total Bilirubin 0.4 mg/dL (0.15-1.2); Total Protein 6.7 g/dL (6.6-8.7)
[2020-08-09] MEDS: HYDROmorphone 1 mg/mL INJ 1 mL IVP (20:19)
[2020-08-09] MEDS: LORazepam 2 mg/mL INJ 1 mL 1 MG IVP (20:24)
--- NOTE | 2020-08-09 20:58 | ECG_ITS ---
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 Measurements Intervals [place] Rate: 55 P: 49 WA: 169 QRS: 19 QRSD: 105 T: 22 QT: 428 QTc: 412 Interpretive Statements SINUS BRADYCARDIA Compared to ECG 08/09/2020 19:04:38 Sinus rhythm no longer present Electronically Signed On 08-10-2020 17:07:39 CDT by Freddy Romero M.D. [email or web address] south pointe [email or web address] [id number]
[2020-08-09 21:43] LABS: D Dimer <= 0.27 ug/mIFEU (0-0.59)
[2020-08-09] MEDS: nitroglycerin 0.4 mg sublingual Tablet SUBLINGUAL ×3 (21:45→21:58)
[2020-08-09 21:59] LABS: Troponin 5 2HR Delta 0 ABS# (0-10)
== END 2020-08-09 22:44 | disposition home or self-care (01) ==
PROVIDERS: Emergency Provider Emergency Medicine; PCP Nurse Practitioner Family
DX: R07.9 Chest pain, unspecified (principal); F17.210 Nicotine dependence, cigarettes, uncomplicated
CPT/HCPCS: 71045; 80053; 84484; 85025; 85378; 85610; 93005; 96374; 96375; 99284; J1170; J2060; J2270

== ENCOUNTER 2020-10-30 07:06 | Emergency (ER) | payer BC, MEDICAID, SELFPAY ==
[2020-10-30] VITALS (7 sets, daily range): BP systolic 136–169; BP diastolic 82–117; PULSE 60–78; RESP 16–18; TEMP 36.9; O2SAT 96–98; BMI 30.5
--- NOTE | 2020-10-30 07:29 | XRR_ITS ---
PROCEDURE INFORMATION: Exam: XR Abdomen Exam date and time: 10/30/2020 7:29 AM Age: 35 years old Clinical indication: Abdominal pain; Localized; Right lower quadrant (rlq); Prior surgery; Surgery type: Stomach; Patient HX: RT lower abd pain. Osman testicle pain; Additional info: Hematuria, nephrolithiasis TECHNIQUE: Imaging protocol: XR of the abdomen. Views: Frontal supine view of the abdomen. 1 View. COMPARISON: CT abdomen pelvis w con* [id number] 10/23/2018 7:14 PM FINDINGS: Gastrointestinal tract: Normal. No bowel dilation. Vasculature: Small phleboliths are present in the lower pelvis. Bones/joints: Unremarkable. XR/XR KUB portable [id number] IMPRESSION: No acute findings.
--- NOTE | 2020-10-30 07:39 | ED_ITS ---
HPI - Male Genitourinary General: Chief complaint: Urogenital-Male Stated complaint: BLOOD IN URINE, PAIN IN TESTES Time Seen by Provider: 10/30/20 07:20 History of Present Illness: HPI Narrative: 35-year-old male presents emergency room complaining of right testicle pain radiating up into the right flank. He has had some hematuria as well. He relates him and his were wrestling and she accidentally hit him in the right testicle he states he is not been able to urinate since 11 AM yesterday. Prior to that he been having dysuria with hematuria. Patient has a history nephrolithiasis and a history of previous testicular torsion. He denies any fever sweats or chills. 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 Complaint: testicle pain and testicle swelling Onset (ago): hour(s) Duration: constant Location: right flank Radiation: right testicle Severity: severe Quality: sharp Relieving factors: none Exacerbating factors: urination Context: trauma Associated symptoms: Reports dysuria and hematuria; Deny discharge, fevers/chills, nausea, rash, swelling, urinary incontinence, urinary retention, mass or vomiting Review of Systems Const: Denies: fever(s), chills, body aches, change in appetite, fatigue or malaise ENMT: Denies: throat pain, ear or mastoid pain, nasal discharge or nasal congestion Card: Denies: chest pain, edema, dyspnea on exertion or orthopnea Resp: Denies: dyspnea, productive cough or non-productive cough GI: Denies: nausea or vomiting : Reports: dysuria and hematuria; Denies: urinary incontinence Skin/Breast: Denies: rash or pruritus [facility] ED PFSH: Medical History HTN (hypertension) Hyperlipidemia Family History Father CAD (coronary artery disease) Myocardial infarction Family/Other Myocardial infarction Stroke CAD (coronary artery disease) Grandfather Stroke Denies family history of Diabetes Social History Smoking and tobacco status: former smoker (1 week prior) Alcohol intake: current Alcohol intake frequency: holidays/special occasions only Physical Exam Const: COMMON NORMALS: no acute distress GENERAL APPEARANCE: cooperative and comfortable ORIENTATION/CONSCIOUSNESS: Yes awake, Yes oriented to person, Yes oriented to place and Yes oriented to time HENMT: COMMON NORMALS: normocephalic, atraumatic and external ears normal HEAD & SCALP: normocephalic and atraumatic EXTERNAL EAR: Yes external ears normal Neck/C-Spine: COMMON NORMALS: no JVD Resp: COMMON NORMALS: normal respiratory effort, No retractions, No use of accessory muscles and clear to auscultation bilaterally AUSCULTATION: clear to auscultation bilaterally Cardio: COMMON NORMALS: no JVD, regular rate, regular rhythm and No murmurs present (Cardio) RATE: regular rate RHYTHM: regular rhythm GI: COMMON NORMALS: Soft to palpation and No hepatosplenomegaly present AUSCULTATION: Yes normoactive bowel sounds PALPATION: Yes Soft to palpation, No Tenderness to palpation present (GI), No Guarding due to palpation present (GI) and Yes No hepatosplenomegaly present : BLADDER/KIDNEY EXAM: Yes CVA tenderness Back/Pelvis: GENERAL BACK: Yes CVA tenderness CVA tenderness: right Extremity: COMMON NORMALS: normal to inspection, capillary refill normal, no clubbing, cyanosis or edema, no calf tenderness and no pedal edema Neuro: SENSORIUM/ORIENTATION: Yes oriented to person, Yes oriented to place and Yes oriented to time Skin: COMMON NORMALS: no rashes or lesions noted GENERAL SKIN EXAM: no rashes or lesions noted Course Vital Signs: Vital signs: Vital Signs Temperature 98.5 F 10/30/20 07:25 Pulse Rate 60 10/30/20 10:30 Respiratory Rate 16 10/30/20 08:13 Blood Pressure 136/82 10/30/20 10:30 Pulse Oximetry 96 10/30/20 10:30 MDM - Male MDM Narrative: Medical decision making narrative: CT shows 3 mm right-sided nephrolithiasis. No sign of infection scrotal ultrasound unremarkable.. Start on urine straining. Patient given tamsulosin hydrocodone and Zofran to use as needed. within the week return to the ER if pain uncontrolled. At the time discharge pain is well controlled. follow-up with Dr. Salazar Lab Data: Labs: Lab Results 10/30/20 10/30/20 10/30/20 Range/Units 07:50 07:50 08:49 WBC 6.3 (4.0-10.0) 10^3/ uL RBC 5.24 (4.1-5.3) 10^6/u L Hgb 15.6 (11.7-16.6) g/dL Hct 46.3 (42.0-52.0) % MCV 88.4 (80-94) fl MCH 29.8 (28.0-34.0) pg MCHC 33.7 (30.0-36.0) g/dL RDW 12.1 (12.1-15.1) % Plt Count 307 (130-400) 10^3/c mm MPV 11.2 H (7.4-10.4) fL Neut % (Auto) 63.9 % Lymph % (Auto) 23.5 % Rains % (Auto) 7.4 % Eos % (Auto) 4.1 % Baso % (Auto) 0.8 % Neut # (Auto) 4.04 (1.8-7.7) 10^3/u L Lymph # (Auto) 1.5 (0.8-4.8) 10^3/u L Rains # (Auto) 0.5 (0.2-0.9) 10^3/u L Eos # (Auto) 0.3 (0.0-0.8) 10^3/u L Baso # (Auto) 0.1 (0.0-0.1) 10^3/u L Nucleated RBC % (a uto) 0 % Nucleated RBCs # 0.0 /100WBC Sodium 139 (136-145) mmol/L Potassium 4.2 (3.5-5.1) mmol/L Chloride 102 (98-107) mmol/L Carbon Dioxide 25 (22-29) mmol/L Anion Gap 16.2 (5-19) BUN 12 (6-20) mg/dL Creatinine 1.0 (0.7-1.2) mg/dL GFR Calculation 84.1 L (90-130) mL/min Glucose 123 H (65-115) mg/dL Calculated Osmolal ity 289 (285-295) mOsm/k g Calcium 8.6 (8.5-10.5) mg/dL Total Bilirubin 0.5 (0.15-1.2) mg/dL AST 23 (0-40) U/L ALT 49 H (0-41) U/L Alkaline Phosphata se 65 (40-130) IU/L Total Protein 7.4 (6.6-8.7) g/dL Albumin 4.7 (3.5-5.2) g/dL Globulin 2.7 (1.3-4.6) g/dL Urine Color Yellow (Yellow) Urine Appearance Cloudy (CLEAR) Urine pH 5 (5-7) Ur Specific Gravit y 1.025 (1.005-1.030) Urine Protein 1+ H (Negative) Urine Glucose (UA) Norm (Normal) Urine Ketones 1+ H (Negative) Urine Blood 3+ H (Negative) Urine Nitrate Negative (Negative) Urine Bilirubin 1+ H (Negative) Urine Urobilinogen 1 H (Negative) mg/dL Ur Leukocyte Maria Victoria ase Negative (Negative) Urine RBC Too numerous to c nt H (0-2) /hpf Urine WBC 0-4 H (0-5) /hpf Ur Squamous Epith Cells 0-4 H (0-5) /hpf Amorphous Sediment Not Reportable Urine Bacteria Trace (NONE) /hpf Urine Mucus 2+ /hpf Discharge Plan Discharge Patient Disposition: Home Clinical Impression: Nephrolithiasis Condition: Stable Prescriptions: New hydrocodone-acetaminophen 5-325 mg tablet 1 tab PO Q6H PRN (Reason: pain) Qty: 2 RF: 0 Zofran 4 mg tablet 4 mg PO Q6H PRN (Reason: nausea and vomiting) Qty: 15 RF: 0 tamsulosin 0.4 mg capsule 0.4 mg PO DAILY Qty: 20 RF: 0 No Action nitroglycerin 0.4 mg tablet, sublingual 0.4 mg sublingual Q5M PRN (Reason: Chest Pain) RF: 0 simvastatin 10 mg tablet 10 mg PO QAM RF: 0 metoprolol tartrate 25 mg tablet 25 mg PO BID RF: 0 aspirin 81 mg tablet,delayed release (DR/EC) 81 mg PO QAM RF: 0 ibuprofen 800 mg Tablet 800 mg PO Q8H PRN (Reason: Pain) RF: 0 isosorbide mononitrate 60 mg tablet extended release 24 hr 60 mg PO QAM RF: 0 diclofenac sodium 50 mg tablet,delayed release (DR/EC) 50 mg PO TID PRN (Reason: Pain) RF: 0 ProAir HFA 90 mcg/actuation Hfa Aerosol Inhaler 2 puff INHALATION QID PRN (Reason: Shortness Of Breath) RF: 0 Discharge Orders: Discharge ED (Routine); Ordered 10/30/20 Ordered By: Benigno Manzo Referrals: Misa Andrade, OBSTETRICAL TECH [Primary Care Provider] - Discharge Diet: Usual diet Discharge Activity: Resume usual activity Patient Instructions: Opioid Safety Activity Restrictions/Additional Instructions: Strain urine follow-up with Dr. Salazar later this week. Coding Level of Care Code ED Check Grader for Kelly Fwd Exam Comprehensive
--- NOTE | 2020-10-30 07:40 | US_ITS ---
WS: [id number] TESTICULAR ULTRASOUND HISTORY: r testicle pain, trauma to the testicle COMPARISON: 04/18/2016 TECHNIQUE: Real-time and color Doppler imaging or utilized to perform a testicular ultrasound. Right testicle: 3.9 cm x 2.8 cm x 2.3 cm. Normal size and echogenicity. No mass or torsion. Normal color Doppler is present throughout. Systolic and diastolic velocities are both present. Small simple hydrocele. Right epididymis: Normal epididymis with no increased vascularity. Left testicle: 3.4 cm x 1.9 cm x 1.7 cm. Normal size and echogenicity. No mass or torsion. Normal color Doppler is present throughout. Systolic and diastolic velocities are both present. Small simple hydrocele. Left epididymis: Normal epididymis with no increased vascularity. Small left-sided varicocele. US/US scrotum [id number] IMPRESSION: 1. No testicular mass or torsion or abnormality. 2. Very small simple hydroceles. 3. LEFT varicocele. Similar to the prior study from 2017.
[2020-10-30 08:00] LABS: Basophils # 0.1 10^3/uL (0.0-0.1); Basophils % 0.8 %; Eosinophils # 0.3 10^3/uL (0.0-0.8); Eosinophils % 4.1 %; Hematocrit 46.3 % (42.0-52.0); Hemoglobin 15.6 g/dL (11.7-16.6); Lymphocytes # 1.5 10^3/uL (0.8-4.8); Lymphocytes % 23.5 %; Mean Corpuscular HGB Conc 33.7 g/dL (30.0-36.0); Mean Corpuscular Hemoglobin 29.8 pg (28.0-34.0); Mean Corpuscular Volume 88.4 fl (80-94); Mean Platelet Volume 11.2 fL (7.4-10.4); Monocytes # 0.5 10^3/uL (0.2-0.9); Monocytes % 7.4 %; Neutrophils # 4.04 10^3/uL (1.8-7.7); Neutrophils % 63.9 %; Nucleated Red Blood Cells % 0 %; Platelet Count 307 10^3/cmm (130-400); Red Blood Count 5.24 10^6/uL (4.1-5.3); Red Cell Distribution Width 12.1 % (12.1-15.1); White Blood Count 6.3 10^3/uL (4.0-10.0)
[2020-10-30] MEDS: morphine 4 mg/mL SDV 1 mL IVP (08:13)
[2020-10-30] MEDS: ondansetron 2 mg/ML SDV 2 mL 4 MG IVP (08:14)
[2020-10-30 08:17] LABS: Alanine Aminotransferase 49 U/L (0-41); Albumin Level 4.7 g/dL (3.5-5.2); Alkaline Phosphatase 65 IU/L (40-130); Anion Gap 16.2 (5-19); Aspartate Amino Transferase 23 U/L (0-40); Blood Urea Nitrogen 12 mg/dL (6-20); Calcium 8.6 mg/dL (8.5-10.5); Carbon Dioxide 25 mmol/L (22-29); Chloride 102 mmol/L (98-107); Globulin 2.7 g/dL (1.3-4.6); Glomerular Filtration Rate 84.1 mL/min (90-130); Glucose 123 mg/dL (65-115); Osmolality Calculated 289 mOsm/kg (285-295); Potassium 4.2 mmol/L (3.5-5.1); Sodium 139 mmol/L (136-145); Total Bilirubin 0.5 mg/dL (0.15-1.2); Total Protein 7.4 g/dL (6.6-8.7)
--- NOTE | 2020-10-30 08:32 | CT_ITS ---
WS: [id number] CT ABDOMEN AND PELVIS NONCONTRAST HISTORY: flank pain TECHNIQUE: Imaging performed through the abdomen and pelvis. Coronal and sagittal reformats are submi tted. All CT scans at [facility] use at least one of these dose optimization techniques: automated exposure control; mA and/or kV adjustment per patient size (includes targeted exams where d ose is matched to clinical indication); or iterative reconstruction. DLP: 2033.63 mGy.cm COMPARISON: 10/23/2018 Lower thorax: Lung bases are clear. Visualized heart is normal. No hiatal hernia. Liver: Normal size liver. Mild heterogeneous pattern throughout the liver. Probably due to hepatic st eatosis. No bile duct dilatation. Gallbladder: Normal gallbladder. Pancreas: Normal size and attenuation. Normal pancreatic duct. No pancreatitis or mass. Spleen: Normal. Adrenal glands: Normal. No mass. Right kidney: Normal size RIGHT kidney. Very minimal perinephric stranding and edema. Mild dilatation of the RIGHT renal pelvis and RIGHT ureter due to a 3 mm calcification in the distal ureter at the l evel of the pelvic brim. There are additional very tiny nonobstructing calculi in the renal pelvis. Left kidney: No hydronephrosis. Multiple tiny calculi within the renal pelvis with no obstruction. Aorta: Normal abdominal aorta, no aneurysm or atherosclerosis. No free fluid, intraperitoneal air or significant lymphadenopathy. GI tract: Normal appendix. No obstruction. No mucosal thickening. Abdominal wall: Negative. No hernia. Pelvis: Nondistended urinary bladder. Osseous structures: Multiple small foci within the bones of the pelvis and femurs from bone islands. CT/CT kidney stone [id number] IMPRESSION: 1. Very minimal RIGHT hydroureteronephrosis secondary to a 3 mm calcification in the distal ureter near the pelvic brim. 2. Additional nonobstructing bilateral nephrolithiasis. 3. Hepatic steatosis. 4. Normal appendix.
--- NOTE | 2020-10-30 08:52 | PC.PHAR ---
pt states he takes care of his own medications-rx filled on 10/10/20 for imdur er 30mg daily and imdur er 60mg daily-pt states he is only taking the 60mg daily
[2020-10-30 09:13] LABS: Specific Gravity, Urine 1.025 (1.005-1.030); Urine Appearance Cloudy (CLEAR); Urine Color Yellow (Yellow); pH Urine 5 (5-7)
[2020-10-30 09:14] LABS: Add Urine Microscopic? YES; Bilirubin Urine 1+ (Negative); Blood Urine 3+ (Negative); Glucose Urine UA Norm (Normal); Ketones Urine 1+ (Negative); Leukocyte Esterase Urine Negative (Negative); Nitrate Urine Negative (Negative); Protein Urine 1+ (Negative); Urobilinogen Urine 1 mg/dL (Negative)
[2020-10-30 09:15] LABS: RBC Urine TOO NUMEROUS TO CNT /hpf (0-2); Squamous Epithelial Cell Urine 0-4 /hpf (0-5); WBC Urine 0-4 /hpf (0-5)
[2020-10-30 09:16] LABS: Bacteria Urine TRACE /hpf; Mucus Urine 2+ /hpf
[2020-10-30 09:17] LABS: Add Urine Culture? Yes
--- NOTE | 2020-10-30 11:06 | DCPLANNER ---
grooming salon manager had message to schedule a follow up appointment for patient with Dr. Salazar. grooming salon manager called the office of Dr. Salazar, spoke with Arnulfo, gave clinic patients information. grooming salon manager was told that patients information would be printed and reviewed. Clinic will call patient with appointment information.
--- NOTE | 2020-10-31 08:12 | DCPLANNER ---
Patient has a follow up appointment scheduled for Tuesday, November 03, 2020 at 11:[address] Salazar. Clinic will call patient with appointment information.
--- NOTE | 2020-11-15 14:36 | DCPLANNER ---
Patient had a follow up appointment scheduled for 11.03.[address] Salazar - patient did not attend appointment.
== END 2020-10-30 10:31 | disposition home or self-care (01) ==
PROVIDERS: Nurse Practitioner Family; Emergency Provider Family Medicine; PCP Nurse Practitioner Family
DX: N20.0 Calculus of kidney (principal); Z79.82 Long term (current) use of aspirin; I10 Essential (primary) hypertension; E78.5 Hyperlipidemia, unspecified; Z87.891 Personal history of nicotine dependence
CPT/HCPCS: 51798; 74018; 74176; 76870; 80053; 81001; 85025; 87086; 96374; 96375; 99284; J2270; J2405

== ENCOUNTER 2020-11-03 07:38 | Outpatient (CLI) | payer BC, MEDICAID, SELFPAY ==
--- NOTE | 2020-11-03 07:46 | MR_ITS ---
WS: [id number] MRI RIGHT KNEE HISTORY: RIGHT KNEE PAIN COMPARISON: 09/08/2009 Anterior cruciate ligament: Intact. Posterior cruciate ligament: Intact. Medial collateral ligament: Intact. Posterior lateral corner structures: Intact. Medial menisci: Intact. Normal signal, size and shape. Lateral meniscus: Intact. Normal signal, size and shape. Extensor mechanism: Distal quadriceps tendon and patellar tendons are intact. Fluid and soft tissue: No joint effusion. No Spencer's cyst. Osseous and articular structures: Patellofemoral compartment: Mild lateral subluxation of the patella. The cartilage is intact. No chapis ow edema or fracture. Medial compartment: No very minimal narrowing of the joint space with fissuring of the cartilage. No full-thickness defects. No marrow edema. Lateral compartment: Small chronic osteochondral defect measuring 7 mm at the base of the lateral tib ial spine. No full-thickness cartilage defect. MR/MR knee RT wo con* [id number] IMPRESSION: 1. No meniscal tear. 2. Chronic superficial 7 mm osteochondral defect at the base of the lateral ti bial spine. No loose body identified. No change since the prior MRI of 09/08/2009 . 3. Mild lateral subluxation patella.
== END 2020-11-03 07:39 | disposition home or self-care (01) ==
LOC: RADSHAW 07:44
PROVIDERS: PCP Nurse Practitioner Family; Visit Provider Nurse Practitioner Family
DX: S83.011A Lateral subluxation of right patella, initial encounter (principal); X58.XXXA Exposure to other specified factors, initial encounter
CPT/HCPCS: 73721

== ENCOUNTER 2021-02-15 07:57 | Outpatient (CLI) | payer BC, MEDICAID, SELFPAY ==
--- NOTE | 2021-02-15 08:04 | US_ITS ---
WS: [id number] RIGHT UPPER QUADRANT ULTRASOUND HISTORY: RUQ ABDOMINAL PAIN COMPARISON: 10/23/2018 CT. Liver: 14.5 cm in length. Liver is normal size. Variable echogenicity throughout the liver with areas of hepatic steatosis and sparing. There is a very small hypoechoic nodule in the medial RIGHT lobe o f the liver which is probably an area of fatty sparing. Portal Vein: Normal hepatopetal flow with monophasic waveform. Gallbladder: Normally distended gallbladder with no stones or wall thickening. CBD: 0.3 cm Pancreas: Normal size. The head and tail are poorly visualized. Right kidney: 11.3 cm in length. Normal size and echogenicity. No hydronephrosis or mass. Aorta and IVC: Unremarkable abdominal aorta and IVC. No ascites. US/US abdomen limited [id number] IMPRESSION: 1. Normal gallbladder. 2. Variable echogenicity throughout the liver is likely due to hepatic steatos is with areas of sparing.
== END 2021-02-15 07:58 | disposition home or self-care (01) ==
LOC: RAD 08:00
PROVIDERS: PCP Nurse Practitioner Family; Visit Provider Nurse Practitioner Family
DX: R10.11 Right upper quadrant pain (principal)
CPT/HCPCS: 76705

== ENCOUNTER 2021-06-09 08:18 | Emergency (ER) | payer BC, MEDICAID, SELFPAY ==
[2021-06-09 08:27] VITALS: BP 147/91; PULSE 75; RESP 14; TEMP 36.7; O2SAT 95; BMI 31.4
--- NOTE | 2021-06-09 08:31 | W.ED.BACK ---
HPI - Back Pain/Injury General: Chief Complaint: Back Pain/Injury Stated Complaint: lower left back pain Time Seen by Provider: 06/09/21 08:21 Source: patient Mode of arrival: ambulatory Limitations: no limitations History of Present Illness: Patient is a 35-year-old male who presents to ED today with a complaint of left-sided back pains. Patient states he does have a history of chronic back pains. He states he will often get intermittent tingling to his bilateral lower extremities. Patient does report a previous history of kidney/ureter stones. He is not having pain to his left flank but does have pain just inferior to this area. He states last time he had a stone he had pain to his testicles and hematuria and states he is not having either of these today. He states he is not having any urinary symptoms whatsoever. He states at one point he followed up with primary care regarding his lower back pain and had advanced imaging ordered however states he lost his insurance and they would not cover these tests so they were not completed. Patient states normally he can manage his pain at home by being careful but states he has been doing a lot of physical activity over the past 2 days and believes he may have exacerbated it. He is not complaining of saddle anesthesia or bowel or bladder dysfunction. MD elicited complaint: back pain Pertinent past history: prior back pain and kidney stones Onset (ago): day(s) Timing: constant Similar Symptoms Previously: Yes Associated symptoms: Deny abdominal pain, chills, difficulty walking, dysuria, fatigue, fever(s), hematuria, nausea, urinary urgency or vomiting Work related injury: No Review of Systems Const: Denies: fever(s), chills, body aches, fatigue or malaise Card: Denies: chest pain Resp: Denies: dyspnea GI: Denies: abdominal pain, nausea or vomiting : Denies: difficulty urinating, dysuria, urinary frequency, urinary urgency, urinary hesitancy or hematuria Musc: Reports: back pain; Denies: neck pain, extremity pain, extremity swelling, joint pain, joint swelling, joint redness or joint warmth Skin/Breast: Denies: rash Neuro: Reports: sensory changes (reports chronic intermittent tingling to LEs); Denies: headache(s), weakness in extremities or difficulty walking [facility] ED PFSH: Medical History HTN (hypertension) Hyperlipidemia Family History Father CAD (coronary artery disease) Myocardial infarction Family/Other Myocardial infarction Stroke CAD (coronary artery disease) Grandfather Stroke Denies family history of Diabetes Social History Smoking and tobacco status: current every day smoker Alcohol intake: current Alcohol intake frequency: holidays/special occasions only Physical Exam Const: COMMON NORMALS: no acute distress, patient oriented x3, no limitations, alert and well nourished GENERAL APPEARANCE: cooperative HENMT: COMMON NORMALS: normocephalic and atraumatic HEAD & SCALP: normocephalic and atraumatic Resp: COMMON NORMALS: normal respiratory effort and clear to auscultation bilaterally AUSCULTATION: clear to auscultation bilaterally Cardio: COMMON NORMALS: regular rate and regular rhythm RATE: regular rate RHYTHM: regular rhythm GI: COMMON NORMALS: Normal to inspection, nondistended, normoactive bowel sounds present, Soft to palpation, non-tender, No hepatosplenomegaly present and no masses PALPATION: Yes Soft to palpation and Yes No hepatosplenomegaly present : COMMON NORMALS: Yes no CVA tenderness (tenderness below L CVA) BLADDER/KIDNEY EXAM: Yes no CVA tenderness (tenderness below L CVA) Back/Pelvis: COMMON NORMALS: no CVA tenderness (tenderness below L CVA) THORACIC SPINE/UPPER BACK: Yes normal to inspection, Yes thoracic ROM normal, No thoracic spinal tenderness, No paraspinal muscle tenderness and No paraspinal muscle spasm LUMBAR SPINE/LOWER BACK: Yes lumbar ROM normal, No ROM limited, Yes lumbar spinal tenderness, Yes paraspinal muscle tenderness Lumbar paraspinal muscle tenderness: left, No paraspinal muscle spasm and Yes straight leg raise negative bilaterally PELVIS: Yes buttocks normal BACK IMAGE (MALE): 1. TTP Extremity: COMMON NORMALS: normal to inspection and full ROM GENERAL: Yes normal exam except as noted Neuro: COMMON NORMALS: patient oriented x3, moves all extremities, no focal motor deficits, no sensory deficits noted and gait normal SENSORIUM/ORIENTATION: Yes alert Skin: COMMON NORMALS: no rashes or lesions noted GENERAL SKIN EXAM: no rashes or lesions noted Course Vital Signs: Vital signs: Vital Signs Temperature 98.1 F 06/09/21 08:52 Pulse Rate 75 06/09/21 08:52 Respiratory Rate 14 06/09/21 08:52 Blood Pressure 147/91 06/09/21 08:52 Pulse Oximetry 95 06/09/21 08:52 MDM - Back Pain/Injury Medical Decision Making Patient has a 2 mm mid to distal left ureter stone without hydronephrosis. Blood work is unremarkable. UA showing hematuria without infection. Vital signs are stable. Pain is controlled here. We will send patient home with urine strainer, pain/nausea medications, and follow-up with urology. Return to ED precautions given. Labs : 06/09/21 10:01 06/09/21 10:01 Radiology Impressions Abdomen/Pelvis CT 06/09/21 09:28 IMPRESSION: 1. 2 mm stone noted in the mid left ureter. No obstruction/hydroureteronephrosis proximal to the stone. 2. A few additional tiny punctate nonobstructing stones are noted within the kidneys. Laboratory Results WBC 4.5 10^3/uL (4.0-10.0) 06/09/21 10:01 RBC 5.41 10^6/uL (4.1-5.3) H 06/09/21 10:01 Hgb 16.0 g/dL (11.7-16.6) 06/09/21 10:01 Hct 48.1 % (42.0-52.0) 06/09/21 10:01 MCV 88.9 fl (80-94) 06/09/21 10:01 MCH 29.6 pg (28.0-34.0) 06/09/21 10:01 MCHC 33.3 g/dL (30.0-36.0) 06/09/21 10:01 RDW 12.1 % (12.1-15.1) 06/09/21 10:01 Plt Count 260 10^3/cmm (130-400) 06/09/21 10:01 MPV 11.5 fL (7.4-10.4) H 06/09/21 10:01 Neut % (Auto) 66.0 % 06/09/21 10:01 Lymph % (Auto) 22.7 % 06/09/21 10:01 [place] % (Auto) 6.7 % 06/09/21 10:01 Eos % (Auto) 4.0 % 06/09/21 10:01 Baso % (Auto) 0.4 % 06/09/21 10:01 Neut # (Auto) 2.97 10^3/uL (1.8-7.7) 06/09/21 10:01 Lymph # (Auto) 1.0 10^3/uL (0.8-4.8) 06/09/21 10:01 [place] # (Auto) 0.3 10^3/uL (0.2-0.9) 06/09/21 10:01 Eos # (Auto) 0.2 10^3/uL (0.0-0.8) 06/09/21 10:01 Baso # (Auto) 0.0 10^3/uL (0.0-0.1) 06/09/21 10:01 Nucleated RBC % (auto) 0 % 06/09/21 10:01 Nucleated RBCs # 0.0 /100WBC 06/09/21 10:01 Sodium 139 mmol/L (136-145) 06/09/21 10:01 Chloride 105 mmol/L (98-107) 06/09/21 10:01 Carbon Dioxide 26 mmol/L (22-29) 06/09/21 10:01 BUN 10 mg/dL (6-20) 06/09/21 10:01 Creatinine 0.9 mg/dL (0.7-1.2) 06/09/21 10:01 GFR Calculation 95.0 mL/min (90-130) 06/09/21 10:01 Glucose 105 mg/dL (65-115) 06/09/21 10:01 Calculated Osmolality 287 mOsm/kg (285-295) 06/09/21 10:01 Calcium 9.0 mg/dL (8.5-10.5) 06/09/21 10:01 Total Bilirubin 0.3 mg/dL (0.15-1.2) 06/09/21 10:01 AST 14 U/L (0-40) 06/09/21 10:01 ALT 23 U/L (0-41) 06/09/21 10:01 Alkaline Phosphatase 58 IU/L (40-130) 06/09/21 10:01 Total Protein 7.2 g/dL (6.6-8.7) 06/09/21 10:01 Albumin 4.5 g/dL (3.5-5.2) 06/09/21 10:01 Globulin 2.7 g/dL (1.3-4.6) 06/09/21 10:01 Urine Color Yellow (Yellow) 06/09/21 08:38 Urine Appearance Clear (CLEAR) 06/09/21 08:38 Urine pH 5 (5-7) 06/09/21 08:38 Ur Specific Brothers 1.030 (1.005-1.030) 06/09/21 08:38 Urine Protein Neg (Negative) 06/09/21 08:38 Urine Glucose (UA) Norm (Normal) 06/09/21 08:38 Urine Ketones Negative (Negative) 06/09/21 08:38 Urine Blood 3+ (Negative) H 06/09/21 08:38 Urine Nitrate Negative (Negative) 06/09/21 08:38 Urine Bilirubin Neg (Negative) 06/09/21 08:38 Urine Urobilinogen Norm mg/dL (Negative) 06/09/21 08:38 Ur Leukocyte Esterase Negative (Negative) 06/09/21 08:38 Urine RBC 15-25 /hpf (0-2) H 06/09/21 08:38 Urine WBC 0-4 /hpf (0-5) H 06/09/21 08:38 Ur Squamous Epith Cells Rare /hpf (0-5) 06/09/21 08:38 Amorphous Sediment Not Reportable 06/09/21 08:38 Urine Bacteria Trace /hpf (NONE) 06/09/21 08:38 Urine Mucus 1+ /hpf 06/09/21 08:38 Discharge Plan Discharge Patient Disposition: Home Clinical Impression: Calculus of distal left ureter Condition: Stable Prescriptions: New tramadol 50 mg tablet 50 mg PO .q4-6 PRN (Reason: pain) Qty: 15 0RF Flomax 0.4 mg capsule 0.4 mg PO DAILY Qty: 10 0RF ondansetron 4 mg tablet,disintegrating 4 mg PO Q8H PRN (Reason: nausea and vomiting) Qty: 14 0RF No Action nitroglycerin 0.4 mg tablet, sublingual 0.4 mg sublingual Q5M PRN (Reason: Chest Pain) 0RF Rx Instructions: do not exceed 3 doses per episode simvastatin 10 mg tablet 10 mg PO QAM 0RF metoprolol tartrate 25 mg tablet 25 mg PO BID 0RF aspirin 81 mg tablet,delayed release (DR/EC) 81 mg PO QAM 0RF isosorbide mononitrate 60 mg tablet extended release 24 hr 60 mg PO QAM 0RF diclofenac sodium 50 mg tablet,delayed release (DR/EC) 50 mg PO TID PRN (Reason: Pain) 0RF ProAir HFA 90 mcg/actuation Hfa Aerosol Inhaler 2 puff INHALATION QID PRN (Reason: Shortness Of Breath) 0RF Zofran 4 mg tablet 4 mg PO Q6H PRN (Reason: nausea and vomiting) Qty: 15 0RF tamsulosin 0.4 mg capsule 0.4 mg PO DAILY Qty: 20 0RF Discharge Orders: Discharge ED (Routine); Ordered 06/09/21 Ordered By: Suzanna Walter Referrals: Misa Andrade FNP [Primary Care Provider] - Haider Salazar MD [Physician] - Patient Instructions: Ureteral Stones (ED) Coding Level of Care Code ED Field Attendant for Chg Fwd Exam Comprehensive
[2021-06-09] MEDS: orphenadrine 30 mg/mL Inj 2 mL 60 MG IM (08:44)
[2021-06-09] MEDS: ketorolac 60 mg/2 mL INJ IM (08:46)
[2021-06-09 08:52] VITALS: BP 147/91; PULSE 75; RESP 14; TEMP 36.7; O2SAT 95
[2021-06-09 09:23] LABS: Add Urine Microscopic? YES; Bacteria Urine TRACE /hpf; Bilirubin Urine Neg (Negative); Blood Urine 3+ (Negative); Glucose Urine UA Norm (Normal); Ketones Urine Negative (Negative); Leukocyte Esterase Urine Negative (Negative); Mucus Urine 1+ /hpf; Nitrate Urine Negative (Negative); Protein Urine Neg (Negative); RBC Urine 15-25 /hpf (0-2); Squamous Epithelial Cell Urine RARE /hpf (0-5); Urine Appearance Clear (CLEAR); Urine Color Yellow (Yellow); Urobilinogen Urine Norm (Negative); WBC Urine 0-4 /hpf (0-5); pH Urine 5 (5-7)
[2021-06-09 09:24] LABS: Add Urine Culture? Yes
--- NOTE | 2021-06-09 09:28 | CTR_ITS ---
PROCEDURE INFORMATION: Exam: CT Abdomen And Pelvis Without Contrast Exam date and time: 06/09/2021 9:39 AM Age: 35 years old Clinical indication: Abdominal pain; Flank; Left; Additional info: L inferior cva/back pain; Hematuria TECHNIQUE: Imaging protocol: Computed tomography of the abdomen and pelvis without contrast. Radiation optimization: All CT scans at this facility use at least one of these dose optimization techniques: automated exposure control; mA and/or kV adjustment per patient size (includes targeted exams where dose is matched to clinical indication); or iterative reconstruction. COMPARISON: CT abdomen pelvis w con* [id number] 10/23/2018 7:14 PM RADIATION DOSE METRICS: Total DLP (mGy-cm): 1308.65 FINDINGS: Liver: Normal. No mass. Gallbladder and bile ducts: Normal. No calcified stones. No ductal dilation. Pancreas: Normal. No ductal dilation. Spleen: Normal. No splenomegaly. Adrenal glands: Normal. No mass. Kidneys and ureters: 2 mm stone noted in the mid left ureter series 2, image 109 without hydroureteronephrosis proximal to the stone. A few additional tiny punctate nonobstructing stones are noted within the kidneys. Stomach and bowel: Scattered colonic diverticula without findings of acute diverticulitis. No obstruction. No mucosal thickening. Appendix: No evidence of appendicitis. Intraperitoneal space: Unremarkable. No free air. No significant fluid collection. Arteries: Unremarkable. No abdominal aortic aneurysm. Lymph nodes: Unremarkable. No enlarged lymph nodes. Urinary bladder: Unremarkable as visualized. Reproductive: Unremarkable as visualized. Bones/joints: No acute fracture. Soft tissues: Unremarkable. CT/CT kidney stone [id number] IMPRESSION: 1. 2 mm stone noted in the mid left ureter. No obstruction/hydroureteronephrosis proximal to the stone. 2. A few additional tiny punctate nonobstructing stones are noted within the kidneys.
[2021-06-09 10:08] LABS: Basophils % 0.4 %; Eosinophils # 0.2 10^3/uL (0.0-0.8); Hematocrit 48.1 % (42.0-52.0); Lymphocytes % 22.7 %; Mean Corpuscular HGB Conc 33.3 g/dL (30.0-36.0); Mean Corpuscular Hemoglobin 29.6 pg (28.0-34.0); Mean Corpuscular Volume 88.9 fl (80-94); Mean Platelet Volume 11.5 fL (7.4-10.4); Monocytes # 0.3 10^3/uL (0.2-0.9); Monocytes % 6.7 %; Neutrophils # 2.97 10^3/uL (1.8-7.7); Nucleated Red Blood Cells % 0 %; Platelet Count 260 10^3/cmm (130-400); Red Blood Count 5.41 10^6/uL (4.1-5.3); Red Cell Distribution Width 12.1 % (12.1-15.1); White Blood Count 4.5 10^3/uL (4.0-10.0)
[2021-06-09 10:28] LABS: Alanine Aminotransferase 23 U/L (0-41); Albumin Level 4.5 g/dL (3.5-5.2); Alkaline Phosphatase 58 IU/L (40-130); Aspartate Amino Transferase 14 U/L (0-40); Blood Urea Nitrogen 10 mg/dL (6-20); Carbon Dioxide 26 mmol/L (22-29); Chloride 105 mmol/L (98-107); Globulin 2.7 g/dL (1.3-4.6); Glucose 105 mg/dL (65-115); Osmolality Calculated 287 mOsm/kg (285-295); Sodium 139 mmol/L (136-145); Total Bilirubin 0.3 mg/dL (0.15-1.2); Total Protein 7.2 g/dL (6.6-8.7)
[2021-06-09 10:48] VITALS: RESP 18
[2021-06-09] MEDS: morphine 4 mg/mL SDV 1 mL IVP (10:48)
[2021-06-09 10:49] VITALS: BP 158/96; PULSE 65; RESP 18; O2SAT 97
[2021-06-09 10:56] VITALS: BP 158/96; PULSE 65; RESP 18; O2SAT 97
--- NOTE | 2021-06-09 10:59 | PC.NURSE ---
Patient reports 7/10 pain, morphine given. Patient states his can come get him after he gets discharged.
[2021-06-09 11:17] VITALS: BP 150/93; PULSE 62; RESP 14; O2SAT 95
[2021-06-09 11:26] LABS: Anion Gap 12.6 (5-19)
[2021-06-09 11:27] LABS: Potassium 4.6 mmol/L (3.5-5.1)
--- NOTE | 2021-06-11 11:18 | DCPLANNER ---
Addendum entered by Jessie Lewis 06/26/21 20:54: Patient had a follow up appointment scheduled for 06.14.[address] Salazar - patient did not attend appointment. Addendum entered by Jessie Lewis 06/12/21 13:51: Patient has a follow up appointment scheduled for June at 4:00 with Beatrice Bauman. Clinic will call patient with appointment information. Original Note: power plant manager had message to schedule a follow up appointment for patient with urology. power plant manager sent patients information to the front staff at the urology clinic for review. Patients information will be printed and reviewed. Clinic will call patient with patient appointment information.
== END 2021-06-09 11:21 | disposition home or self-care (01) ==
PROVIDERS: Emergency Provider Physician Assistant; PCP Nurse Practitioner Family
DX: N20.1 Calculus of ureter (principal); I10 Essential (primary) hypertension; F17.200 Nicotine dependence, unspecified, uncomplicated
CPT/HCPCS: 74176; 80053; 81001; 85025; 87086; 96372; 96374; 99284; J1885; J2270; J2360

== ENCOUNTER 2021-09-19 18:46 | Observation (INO) | payer BC, MEDICAID, SELFPAY ==
--- NOTE | 2021-09-19 18:53 | CTR_ITS ---
PROCEDURE INFORMATION: Exam: CT Head Without Contrast Exam date and time: 09/19/2021 7:35 PM Age: 36 years old Clinical indication: Weakness, extremity; Right; Additional info: 5 days R sided weakness, falls TECHNIQUE: Imaging protocol: Computed tomography of the head without contrast. Radiation optimization: All CT scans at this facility use at least one of these dose optimization techniques: automated exposure control; mA and/or kV adjustment per patient size (includes targeted exams where dose is matched to clinical indication); or iterative reconstruction. COMPARISON: CT head wo con* [id number] 03/21/2018 11:52 AM RADIATION DOSE METRICS: Total DLP (mGy-cm): 1146.58 FINDINGS: Brain: No hemorrhage. No edema. No significant white matter disease. No mass effect. Cerebral ventricles: No ventriculomegaly. Paranasal sinuses: Visualized sinuses are unremarkable. No fluid levels. Mastoid air cells: Visualized mastoid air cells are well aerated. Bones/joints: Unremarkable. No acute fracture. Soft tissues: Unremarkable. CT/CT head wo con* [id number] IMPRESSION: No acute intracranial abnormality.
[2021-09-19 19:09] VITALS: BP 130/88; PULSE 90; RESP 16; TEMP 36.7; O2SAT 98; BMI 30.2
[2021-09-19 19:11] VITALS: BP 131/76; RESP 18; O2SAT 99
--- NOTE | 2021-09-19 21:02 | CTR_ITS ---
PROCEDURE INFORMATION: Exam: CTA Head With Contrast, Arteries Exam date and time: 09/19/2021 9:44 PM Age: 36 years old Clinical indication: Numbness and weakness; Patient HX: C/O RT sided weakness/tingling to upper and lower extremity. History of mi. ; Additional info: R sided weakness TECHNIQUE: Imaging protocol: Computed tomographic angiography of the head with contrast. 3D rendering (Not supervised by radiologist): MIP and/or 3D reconstructed images were created by the technologist. Radiation optimization: All CT scans at this facility use at least one of these dose optimization techniques: automated exposure control; mA and/or kV adjustment per patient size (includes targeted exams where dose is matched to clinical indication); or iterative reconstruction. Contrast material: OMNI 350; Contrast volume: 95 ml; Contrast route: INTRAVENOUS (IV); COMPARISON: CT head wo con* [id number] 09/19/2021 7:35 PM RADIATION DOSE METRICS: Total DLP (mGy-cm): 509.07 FINDINGS: ANTERIOR CIRCULATION: Right internal carotid artery: Unremarkable. Intracranial segment is patent with no significant stenosis. No aneurysm. Right middle cerebral artery: Unremarkable. No occlusion or significant stenosis. No aneurysm. Right anterior cerebral artery: Unremarkable. No occlusion or significant stenosis. No aneurysm. Left internal carotid artery: Unremarkable. Intracranial segment is patent with no significant stenosis. No aneurysm. Left middle cerebral artery: Unremarkable. No occlusion or significant stenosis. No aneurysm. Left anterior cerebral artery: Unremarkable. No occlusion or significant stenosis. No aneurysm. POSTERIOR CIRCULATION: Right vertebral artery: Unremarkable. No occlusion or significant stenosis. No aneurysm. Left vertebral artery: Unremarkable. No occlusion or significant stenosis. No aneurysm. Basilar artery: Unremarkable. No occlusion or significant stenosis. No aneurysm. Right posterior cerebral artery: Unremarkable. No occlusion or significant stenosis. No aneurysm. Left posterior cerebral artery: Unremarkable. No occlusion or significant stenosis. No aneurysm. Brain: No definite mass, mass effect, or midline shift. Cerebral ventricles: No ventriculomegaly. Bones/joints: Unremarkable. No acute fracture. Soft tissues: Unremarkable. PROCEDURE INFORMATION: Exam: CTA Neck With Contrast Exam date and time: 09/19/2021 9:44 PM Age: 36 years old Clinical indication: Numbness and weakness; Patient HX: C/O RT sided weakness/tingling to upper and lower extremity. History of mi. ; Additional info: R sided weakness TECHNIQUE: Imaging protocol: Computed tomographic angiography of the neck with contrast. 3D rendering (Not supervised by radiologist): MIP and/or 3D reconstructed images were created by the technologist. Radiation optimization: All CT scans at this facility use at least one of these dose optimization techniques: automated exposure control; mA and/or kV adjustment per patient size (includes targeted exams where dose is matched to clinical indication); or iterative reconstruction. Contrast material: OMNI 350; Contrast volume: 95 ml; Contrast route: INTRAVENOUS (IV); COMPARISON: CTA Head/Neck [id number] 12/31/2016 11:34 AM RADIATION DOSE METRICS: Total DLP (mGy-cm): 509.07 FINDINGS: Right common carotid artery: No stenosis. No dissection or occlusion. Right internal carotid artery: No stenosis of the extracranial segment. No dissection or occlusion. Right external carotid artery: No occlusion or stenosis of the origin. Left common carotid artery: No stenosis. No dissection or occlusion. Left internal carotid artery: No stenosis of the extracranial segment. No dissection or occlusion. Left external carotid artery: No occlusion or stenosis of the origin. Right vertebral artery: No stenosis. No dissection or occlusion. Left vertebral artery: No stenosis. No dissection or occlusion. Soft tissues: Normal. No significant soft tissue swelling. Bones/joints: No acute fracture. CT/CT angio headneck* [id number] IMPRESSION: No large vessel stenosis or occlusion. IMPRESSION: No stenosis or occlusion. REFERENCES: NASCET CRITERIA. The degree of internal carotid artery stenosis is based on NASCET criteria. Normal is no stenosis. Mild is less than 50% stenosis. Moderate is 50-69% stenosis. Severe is 70% to 99% stenosis. Total occlusion is no detectable patent lumen.
--- NOTE | 2021-09-19 21:11 | ED_ITS ---
HPI - General Adult General: Chief complaint: ER Hold Stated complaint: Rt side [place]\Weakness Time Seen by Provider: 09/19/21 21:00 History of Present Illness: Patient is a 28-year-old male with a history of CAD with 2 prior MIs, prior CVA without any residual deficit presenting to the emergency room with complaints of right-sided weakness and numbness for 1 week. Patient was initially seen earlier today at [facility] was told to come to the emergency room. Patient tells me earlier today, patient almost fell after favoring his left side for the last week. Patient also complains of left- sided neck pain. Patient denies any trauma or injury. Patient denies any back pain. Denies any bladder or bowel problem. Patient denies any amaurosis fugax, complete loss of strength in the arms or legs. Patient also denies any chest pain, shortness breath, palpitation, nausea/vomiting, diarrhea, complaints, melena or hematochezia. Onset:1 week ago Duration:1 week Location:home Severity:moderate/severe Associated symptoms: Deny chest pain, dyspnea, nausea, rash, palpitations or vomiting Review of Systems Const: Denies: fever(s) or chills Eyes: Denies: change in vision ENMT: Reports: other (+L sided neck pain); Denies: mouth pain Card: Denies: chest pain or palpitations Resp: Denies: dyspnea or non-productive cough GI: Denies: abdominal pain, nausea, vomiting or diarrhea : Denies: dysuria Musc: Denies: extremity pain Skin/Breast: Denies: rash or new lesions Neuro: Reports: lack of coordination (+leaning to the L side) and other (+R sided weakness and numbness); Denies: weakness in extremities Psych: Reports: other (Normal mood) Donnie/Lymph: Denies: easy bruising PFSH ED PFSH: Medical History Cardiomyopathy Cardiopulmonary arrest HTN (hypertension) Hyperlipidemia Surgical History H/O coronary angiogram History of surgery Stomach surgery as a Family History Father CAD (coronary artery disease) Myocardial infarction Family/Other Myocardial infarction Stroke CAD (coronary artery disease) Grandfather Stroke Denies family history of Diabetes Social History Smoking and tobacco status: current every day smoker Alcohol intake: current Alcohol intake frequency: holidays/special occasions only Lives independently: Yes Household members: spouse Marital status: Number of children: 4 Physical Exam Const: COMMON NORMALS: alert HENMT: COMMON NORMALS: atraumatic HEAD & SCALP: atraumatic MOUTH: moist mucous membranes not abnormal Eye: COMMON NORMALS: EOMs intact bilaterally and conjunctivae normal CONJUNCTIVA: Yes conjunctivae normal Neck/C-Spine: COMMON NORMALS: full ROM and supple Resp: COMMON NORMALS: normal respiratory effort and clear to auscultation bilaterally AUSCULTATION: clear to auscultation bilaterally Cardio: COMMON NORMALS: regular rate RATE: regular rate GI: COMMON NORMALS: Soft to palpation and non-tender PALPATION: Yes Soft to palpation Extremity: COMMON NORMALS: full ROM Neuro: SENSORIUM/ORIENTATION: Yes alert MOTOR EXAM: No Abnormal motor strength present and Other motor observations present (no focal motor deficits) OTHER: Mental status? Awake, alert, and oriented to self, year, month, location, and situation.? Following simple axial and appendicular commands.? Has appropriate fund of knowledge, comprehension, and insight.? Able to recall and understands pertinent aspects of medical history and current treatment status.? ? Language? Speech is fluent without word-finding difficulties.? 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 ? Cranial nerves? 2,3,4,6: PERRL, EOMI with no nystagmus. 5: Mildly diminished sensation to touch on the R side compared to the L? 7: Smile symmetrical, no facial droop.? 8: Hearing grossly intact.? 9,10: Normal palate movement.? 11: Normal strength in trapezius bilaterally 12: Tongue protrudes midline.? ? Motor examination? Normal bulk & tone. Strength as follows (R/L): Delts (4-5/5), Biceps (4-5/5), Triceps (4-5/5), Wrist ext (4-5/5), hip flexors (4-5/5), plantarflexors (4-5/5), dorsiflexors (4-5/5). ? Sensation? Light Touch: Grossly intact and equal in upper and lower extremities bilaterally? Romberg: Negative.? Distal joint position sense intact ? Coordination? Sgnpix-uy-[id number]-finger movements intact without dysmetria or past-pointing.? Rapid fingertaps: preserved amplitude without decriment.? No tremor, myoclonus or truncal ataxia.? ? Gait/stance? Steady, normal narrow base gait with appropriate arm swing and turning.? Tandem gait without hesitation or loss of balance. Psych: COMMON NORMALS: speech normal SPEECH: Yes normal speech MOOD & AFFECT: Yes euthymic mood Course Vital Signs: Vital signs: Vital Signs Temperature 98.0 F 09/19/21 22:11 Pulse Rate 55 L 09/20/21 15:09 Respiratory Rate 18 09/20/21 15:09 Blood Pressure 123/72 09/20/21 15:09 Pulse Oximetry 99 09/20/21 15:09 [facility] - General Adult Medical Decision Making 36-year-old male with history of CAD with 2 prior MIs, CVA, hypertension presents emergency room for evaluation of right-sided weakness and numbness with left-sided neck pain x1 week. On physical exam, patient has 4-5 strength in the right upper and lower extremity. Patient has mildly decreased sensation on the right side compared to left. Rest of exam within normal limit. Patient has been able to ambulate without difficulty. CT has negative for any acute finding. Lab work-up is largely unremarkable. CT head/ CTA head and neck negative. Patient will be admitted for MRI. Disposition: admisison Lab Data : 09/19/21 23:50 09/19/21 23:[address] 09/19/21 18:53 IMPRESSION: No acute intracranial abnormality. Head/Neck CTA 09/19/21 21:02 IMPRESSION: No large vessel stenosis or occlusion. IMPRESSION: No stenosis or occlusion. REFERENCES: NASCET CRITERIA. The degree of internal carotid artery stenosis is based on NASCET criteria. Normal is no stenosis. Mild is less than 50% stenosis. Moderate is 50-69% stenosis. Severe is 70% to 99% stenosis. Total occlusion is no detectable patent lumen. Head MRI 09/20/21 00:05 IMPRESSION: 1. Normal MRI brain. 2. No acute infarct or signal abnormality within the brain. Normal diffusion sequence. Laboratory Results WBC 6.7 10^3/uL (4.0-10.0) 09/19/21 23:50 RBC 5.45 10^6/uL (4.1-5.3) H 09/19/21 23:50 Hgb 16.2 g/dL (11.7-16.6) 09/19/21 23:50 Hct 49.1 % (42.0-52.0) 09/19/21 23:50 MCV 90.1 fl (80-94) 09/19/21 23:50 MCH 29.7 pg (28.0-34.0) 09/19/21 23:50 MCHC 33.0 g/dL (30.0-36.0) 09/19/21 23:50 RDW 12.4 % (12.1-15.1) 09/19/21 23:50 Plt Count 289 10^3/cmm (130-400) 09/19/21 23:50 MPV 11.4 fL (7.4-10.4) H 09/19/21 23:50 Neut % (Auto) 53.7 % 09/19/21 23:50 Lymph % (Auto) 32.9 % 09/19/21 23:50 [place] % (Auto) 6.7 % 09/19/21 23:50 Eos % (Auto) 5.7 % 09/19/21 23:50 Baso % (Auto) 0.7 % 09/19/21 23:50 Neut # (Auto) 3.59 10^3/uL (1.8-7.7) 09/19/21 23:50 Lymph # (Auto) 2.2 10^3/uL (0.8-4.8) 09/19/21 23:50 [place] # (Auto) 0.5 10^3/uL (0.2-0.9) 09/19/21 23:50 Eos # (Auto) 0.4 10^3/uL (0.0-0.8) 09/19/21 23:50 Baso # (Auto) 0.1 10^3/uL (0.0-0.1) 09/19/21 23:50 Nucleated RBC % (auto) 0 % 09/19/21 23:50 Nucleated RBCs # 0.0 /100WBC 09/19/21 23:50 Sodium 140 mmol/L (136-145) 09/19/21 23:50 Potassium 4.1 mmol/L (3.5-5.1) 09/19/21 23:50 Chloride 100 mmol/L (98-107) 09/19/21 23:50 Carbon Dioxide 29 mmol/L (22-29) 09/19/21 23:50 Anion Gap 15.1 (5-19) 09/19/21 23:50 BUN 12 mg/dL (6-20) 09/19/21 23:50 Creatinine 1.0 mg/dL (0.7-1.2) 09/19/21 23:50 GFR Calculation 83.6 mL/min (90-130) L 09/19/21 23:50 Glucose 78 mg/dL (65-115) 09/19/21 23:50 Calculated Osmolality 289 mOsm/kg (285-295) 09/19/21 23:50 Calcium 9.3 mg/dL (8.5-10.5) 09/19/21 23:50 Total Bilirubin 0.3 mg/dL (0.15-1.2) 09/19/21 23:50 AST 23 U/L (0-40) 09/19/21 23:50 ALT 32 U/L (0-41) 09/19/21 23:50 Alkaline Phosphatase 66 IU/L (40-130) 09/19/21 23:50 Troponin T Baseline 6 ng/L (0-15) 09/19/21 23:50 Total Protein 6.5 g/dL (6.6-8.7) L 09/19/21 23:50 Albumin 4.8 g/dL (3.5-5.2) 09/19/21 23:50 Globulin 1.7 g/dL (1.3-4.6) 09/19/21 23:50 Lipase 30 U/L (13-60) 09/19/21 23:50 Imaging Data Other Imaging: Radiologist's impression: [address] [address] [address] Scan Report Signed Patient: Elian Parson Unit #: [id number] : 1985 Age/Sex: 36 / M ADM Date: 09/19/21 Loc: ER Room/Bed: Attending Dr: Ordering Provider/Ordering MD: Joshua Rodriguez MD Date of Service: 09/19/21 Procedure(s): CT angio headneck* [id number] Accession Number(s): [id number] Report Number: [id number] PROCEDURE INFORMATION: Exam: CTA Head With Contrast, Arteries Exam date and time: 09/19/2021 9:44 PM Age: 36 years old Clinical indication: Numbness and weakness; Patient HX: C/O RT sided weakness/tingling to upper and lower extremity. History of mi. ; Additional info: R sided weakness TECHNIQUE: Imaging protocol: Computed tomographic angiography of the head with contrast. 3D rendering (Not supervised by radiologist): MIP and/or 3D reconstructed images were created by the technologist. Radiation optimization: All CT scans at this facility use at least one of these dose optimization techniques: automated exposure control; mA and/or kV adjustment per patient size (includes targeted exams where dose is matched to clinical indication); or iterative reconstruction. Contrast material: OMNI 350; Contrast volume: 95 ml; Contrast route: INTRAVENOUS (IV);? COMPARISON: CT head wo con* [id number] 09/19/2021 7:35 PM RADIATION DOSE METRICS: Total DLP (mGy-cm): 509.07 FINDINGS: ANTERIOR CIRCULATION: Right internal carotid artery: Unremarkable. Intracranial segment is patent with no significant stenosis. No aneurysm. Right middle cerebral artery: Unremarkable. No occlusion or significant stenosis. No aneurysm.? Right anterior cerebral artery: Unremarkable. No occlusion or significant stenosis. No aneurysm.? Left internal carotid artery: Unremarkable. Intracranial segment is patent with no significant stenosis. No aneurysm. Left middle cerebral artery: Unremarkable. No occlusion or significant stenosis. No aneurysm.? Left anterior cerebral artery: Unremarkable. No occlusion or significant stenosis. No aneurysm.? POSTERIOR CIRCULATION: Right vertebral artery: Unremarkable. No occlusion or significant stenosis. No aneurysm.? Left vertebral artery: Unremarkable. No occlusion or significant stenosis. No aneurysm.? Basilar artery: Unremarkable. No occlusion or significant stenosis. No aneurysm. Right posterior cerebral artery: Unremarkable. No occlusion or significant stenosis. No aneurysm.? Left posterior cerebral artery: Unremarkable. No occlusion or significant stenosis. No aneurysm.? Brain: No definite mass, mass effect, or midline shift. Cerebral ventricles: No ventriculomegaly. Bones/joints: Unremarkable. No acute fracture. Soft tissues: Unremarkable. PROCEDURE INFORMATION: Exam: CTA Neck With Contrast Exam date and time: 09/19/2021 9:44 PM Age: 36 years old Clinical indication: Numbness and weakness; Patient HX: C/O RT sided weakness/tingling to upper and lower extremity. History of mi. ; Additional info: R sided weakness TECHNIQUE: Imaging protocol: Computed tomographic angiography of the neck with contrast. 3D rendering (Not supervised by radiologist): MIP and/or 3D reconstructed images were created by the technologist. Radiation optimization: All CT scans at this facility use at least one of these dose optimization techniques: automated exposure control; mA and/or kV adjustment per patient size (includes targeted exams where dose is matched to clinical indication); or iterative reconstruction. Contrast material: OMNI 350; Contrast volume: 95 ml; Contrast route: INTRAVENOUS (IV);? COMPARISON: CTA Head/Neck [id number] 12/31/2016 11:34 AM RADIATION DOSE METRICS: Total DLP (mGy-cm): 509.07 FINDINGS: Right common carotid artery: No stenosis. No dissection or occlusion. Right internal carotid artery: No stenosis of the extracranial segment. No dissection or occlusion. Right external carotid artery: No occlusion or stenosis of the origin.? Left common carotid artery: No stenosis. No dissection or occlusion. Left internal carotid artery: No stenosis of the extracranial segment. No dissection or occlusion. Left external carotid artery: No occlusion or stenosis of the origin.? Right vertebral artery: No stenosis. No dissection or occlusion. Left vertebral artery: No stenosis. No dissection or occlusion. Soft tissues: Normal. No significant soft tissue swelling. Bones/joints: No acute fracture. CT/CT angio headneck* [id number] IMPRESSION: No large vessel stenosis or occlusion. ? ? IMPRESSION: No stenosis or occlusion. ? REFERENCES: NASCET CRITERIA. The degree of internal carotid artery stenosis is based on NASCET criteria. Normal is no stenosis. Mild is less than 50% stenosis. Moderate is 50-69% stenosis. Severe is 70% to 99% stenosis. Total occlusion is no detectable patent lumen. ? Dictated By: Vincent Álvarez DO Signed By: Vincent Álvarez DO Signed Date/Time: 09/19/212235 DD/ [address] [address] [address] Scan Report Signed Patient: Elian Parson Unit #: [id number] : 1985 Age/Sex: 36 / M ADM Date: 09/19/21 Loc: ER Room/Bed: Attending Dr: Ordering Provider/Ordering MD: Mark Sylvester MD Date of Service: 09/19/21 Procedure(s): CT head wo con* [id number] Accession Number(s): [id number] Report Number: [id number] PROCEDURE INFORMATION: Exam: CT Head Without Contrast Exam date and time: 09/19/2021 7:35 PM Age: 36 years old Clinical indication: Weakness, extremity; Right; Additional info: 5 days R sided weakness, falls TECHNIQUE: Imaging protocol: Computed tomography of the head without contrast. Radiation optimization: All CT scans at this facility use at least one of these dose optimization techniques: automated exposure control; mA and/or kV adjustment per patient size (includes targeted exams where dose is matched to clinical indication); or iterative reconstruction. COMPARISON: CT head wo con* [id number] 03/21/2018 11:52 AM RADIATION DOSE METRICS: Total DLP (mGy-cm): 1146.58 FINDINGS: Brain: No hemorrhage. No edema. No significant white matter disease. No mass effect. Cerebral ventricles: No ventriculomegaly. Paranasal sinuses: Visualized sinuses are unremarkable. No fluid levels. Mastoid air cells: Visualized mastoid air cells are well aerated. Bones/joints: Unremarkable. No acute fracture. Soft tissues: Unremarkable. CT/CT head wo con* [id number] IMPRESSION: No acute intracranial abnormality. ? Dictated By: Vincent Álvarez DO Signed By: Vincent Álvarez DO Signed Date/Time: 09/19/211999 DD/ 34 Discharge Plan Discharge Patient Disposition: Home Clinical Impression: Right sided weakness, Numbness on right side Condition: Stable Discharge Orders: Discharge Order (Routine); Ordered 09/20/21 Ordered By: Alba Onofre Discharge Diet: Cardiac Discharge Activity: Increase activity as tolerated Coding Level of Care Code ED Stitch Cleaner for Kelly Fwd Exam Comprehensive
[2021-09-19] MEDS: iohexol 350 mg/mL 100 mL Btl IV (21:52)
[2021-09-19 22:11] VITALS: BP 133/67; PULSE 90; RESP 18; TEMP 36.7; O2SAT 99
--- NOTE | 2021-09-19 22:53 | ECG_ITS ---
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 Measurements Intervals [place] Rate: 61 P: 46 CA: 174 QRS: 17 QRSD: 102 T: 25 QT: 397 QTc: 402 Interpretive Statements SINUS RHYTHM POSSIBLE RIGHT VENTRICULAR CONDUCTION DELAY [RSR (QR) IN V1/V2] NONSPECIFIC T-WAVE ABNORMALITY Compared to ECG 08/09/2020 22:27:07 T-wave abnormality now present Sinus bradycardia no longer present Electronically Signed On 09-19-2021 23:20:15 CDT by Freddy Romero M.D. [id number]
[2021-09-19 23:54] LABS: Basophils # 0.1 10^3/uL (0.0-0.1); Basophils % 0.7 %; Eosinophils # 0.4 10^3/uL (0.0-0.8); Eosinophils % 5.7 %; Hematocrit 49.1 % (42.0-52.0); Hemoglobin 16.2 g/dL (11.7-16.6); Lymphocytes # 2.2 10^3/uL (0.8-4.8); Lymphocytes % 32.9 %; Mean Corpuscular Hemoglobin 29.7 pg (28.0-34.0); Mean Corpuscular Volume 90.1 fl (80-94); Mean Platelet Volume 11.4 fL (7.4-10.4); Monocytes # 0.5 10^3/uL (0.2-0.9); Monocytes % 6.7 %; Neutrophils # 3.59 10^3/uL (1.8-7.7); Neutrophils % 53.7 %; Nucleated Red Blood Cells % 0 %; Platelet Count 289 10^3/cmm (130-400); Red Blood Count 5.45 10^6/uL (4.1-5.3); Red Cell Distribution Width 12.4 % (12.1-15.1); White Blood Count 6.7 10^3/uL (4.0-10.0)
--- NOTE | 2021-09-19 23:59 | PM.HP ---
Providers/Chief Complaint Chief Complaint: Rt side [place]\Weakness History of Present Illness Pleasant 36-year-old gentleman with history of 2 times AZ without requiring stenting on assessment by angiogram, no prior CVA, smoking addiction which he has been cutting down down from 2 packs a day to about half a pack a day, hypertension, hyperlipidemia, prior cardiopulmonary arrest due to allergic reaction to baclofen, subsequently with cardiomyopathy, EF 45% He presents to the hospital today due to about 6-day duration of right side weakness, diminished sensation, as well as intermittent episodes of vertigo, sometimes worse when looking in a particular direction. He reports his weakness has affected his mobility so that he is almost fallen out of his truck. He denies any headache, although has been having some neck pain on the left side. No fever or chills. No rashes. No recent tick bites. His also remembers that perhaps he was told before about having irregular heartbeat, possibly atrial fibrillation, they are not sure. Although, discussed with them I do not see diagnosis of atrial fibrillation in documentation under his diagnoses or during the cardiology visit. He otherwise reports also has had some very brief, lasting about couple seconds episodes of chest pressure on the left side of his chest. Review of Systems Const: Denies: fever(s), chills, body aches or malaise Eyes: Denies: change in vision, eye discomfort or eye redness ENMT: Denies: throat pain, oral sores or ear or mastoid pain Card: Reports: chest pain; Denies: edema, pre-syncope or dyspnea on exertion Resp: Denies: dyspnea, productive cough, change in phlegm color or hemoptysis GI: Denies: abdominal pain, nausea, vomiting, diarrhea, constipation, hematochezia or melena : Denies: flank pain, difficulty urinating, urinary frequency or hematuria Musc: Denies: back pain, joint swelling or joint redness Skin/Breast: Denies: rash or new lesions Neuro: Reports: numbness in extremities, weakness in extremities, difficulty walking, frequent falls and vertigo; Denies: confusion or seizure-like activity Endo: Denies: polyuria or polydipsia Donnie/Lymph: Denies: easy bleeding or tender lymph nodes All/Imm: Denies: urticaria or tongue swelling Medications/Allergies Home Medications Medication Instructions Recorded Confirmed Last Taken Type aspirin 81 mg tablet,delayed 81 mg PO QAM 08/30/20 09/19/21 09/19/21 History release nitroglycerin 0.4 mg sublingual 0.4 mg SUBLINGUAL Q5M PRN 08/30/20 09/19/21 Unknown History tablet simvastatin 10 mg tablet 10 mg PO QAM 08/30/20 09/19/21 09/19/21 History albuterol sulfate 90 mcg/actuation 2 puff INHALATION QID PRN 10/30/20 09/19/21 Unknown History aerosol inhaler (ProAir HFA) diclofenac sodium 50 mg 50 mg PO TID PRN 10/30/20 09/19/21 10/29/20 History tablet,delayed release isosorbide mononitrate 60 mg 60 mg PO QAM 10/30/20 09/19/21 09/19/21 History tablet,extended release 24 hr metoprolol tartrate 50 mg tablet 50 mg PO BID 09/19/21 09/19/21 09/19/21 History omeprazole 40 mg capsule,delayed 40 mg PO DAILY PRN 09/19/21 09/19/21 Unknown History release Allergies Allergy/AdvReac Type Severity Reaction Status Date / Time baclofen Allergy Unconscious Verified 09/19/21 18:05 PFSH Acute PFSH: Medical History Cardiomyopathy Cardiopulmonary arrest HTN (hypertension) Hyperlipidemia Surgical History H/O coronary angiogram History of surgery Stomach surgery as a Family History Father CAD (coronary artery disease) Myocardial infarction Family/Other Myocardial infarction Stroke CAD (coronary artery disease) Grandfather Stroke Denies family history of Diabetes Social History Smoking and tobacco status: current every day smoker Alcohol intake: current Alcohol intake frequency: holidays/special occasions only Substance/Drug Use: never Lives independently: Yes Household members: spouse Marital status: Number of children: 4 Vitals/I&O/Wt Last Vital Signs Temp 98.0 F 09/19/21 22:11 Pulse 90 09/19/21 22:11 Resp 18 09/19/21 22:11 BP 133/67 09/19/21 22:11 Pulse Ox 99 09/19/21 22:11 Weight last 48 hrs Weight 84.822 kg Physical Exam Narrative: Accompanied by his at bedside. Const: COMMON NORMALS: alert GENERAL APPEARANCE: cooperative ORIENTATION/CONSCIOUSNESS: Yes awake HENMT: COMMON NORMALS: normocephalic, EAC's normal, Normal external nose present and moist oral mucous membranes HEAD & SCALP: normocephalic NOSE: Normal external nose present EXTERNAL AUDITORY CANAL: EAC's normal TEETH & GINGIVA: Yes edentulous Neck/C-Spine: COMMON NORMALS: no meningeal signs Chest: CHEST: Yes Symmetrical chest wall rise Resp: COMMON NORMALS: clear to auscultation bilaterally AUSCULTATION: clear to auscultation bilaterally Cardio: COMMON NORMALS: regular rate, regular rhythm and No murmurs present (Cardio) RATE: regular rate RHYTHM: regular rhythm GI: COMMON NORMALS: Normal to inspection, nondistended, normoactive bowel sounds present, Soft to palpation and non-tender PALPATION: Yes Soft to palpation Extremity: COMMON NORMALS: no pedal edema Neuro: COMMON NORMALS: moves all extremities SENSORIUM/ORIENTATION: Yes alert MENINGEAL SIGNS: Yes no meningeal signs COORDINATION/BALANCE: [id number] test normal and [id number]-[id number] test normal SPEECH: speech normal SENSORY EXAM: Yes extremities (Diminished sensation R upper and lower) and Normal double simultaneous stimulation for sensation; No sensory level loss detected MOTOR EXAM: Other motor observations present (4/5 R side) OTHER: Keenly alert, following directions. No trouble tracking. Cannot trigger vertigo at extremes of gaze. Visual coe full to confrontation. Psych: COMMON NORMALS: mental status grossly normal Skin: COMMON NORMALS: no wounds RASHES: no rashes Data : 09/19/21 23:50 09/19/21 23:50 A&P Assessment and plan (1) Focal neurological deficit: Possible CVA with persistent right side weaker than the left, right side decreased sensation. Intermittent mild vertigo. Risk factors of CVA including smoking, hypertension, hyperlipidemia, NSAID use. CTA head and neck did not show large vessel occlusion. Continue aspirin, for now 162 mg. Assess additionally by MRI of the brain. If stroke identified, consider addition of Plavix for 21 days. Increase statin intensity to high intensity. Diclofenac can increase risk of CVA by 25%. Discontinue diclofenac/NSAIDs. Encourage smoking cessation, encourage close blood pressure monitoring/hypertension optimization as he is hypertensive in ER. Healthy diet and exercise. Weight loss. His and he also report that he was previously told about irregular heartbeat, they are not sure whether it was atrial fibrillation, it could have been, although I do not see any formal diagnosis and do not see any documentation of such and cardiology note either. In case stroke identified, please set up for 21-day event monitor. PT, OT evaluation. Status: Acute (2) Right sided weakness: Status: Acute (3) Numbness on right side: Status: Acute (4) Vertigo: Additional assessment as above for possible CVA given other focal findings. No otic symptoms. Other differential, including BPPV. PT assessment Status: Acute (5) Difficulty walking: As above. Fall precautions. Status: Acute (6) Falls: Status: Acute (7) Left chest pressure: Intermittent atypical episodes of chest pressure resolving in seconds. Reported history of coronary disease and [place] x2, although coronary angiogram appears did not reveal any stent double lesions. Continue to optimize risk factors of coronary disease. Continue to primary substance abuse counselor on smoking cessation, discontinue NSAIDs, blood pressure monitoring. Assess TTE. Consideration of vasospasm Status: Acute (8) Smoker: Discussed with him smoking cessation for 4-1/2 minutes. Highly encourage cessation including due to prior history of reported AZ. Family history of reported AZ and CVA. And currently possible CVA. He reports he knows that he needs to quit, but has been stubborn , although has been continue to try to cut down. Has cut down from 2 packs to about half pack per day. Agreeable to nicotine replacement, although patch as it appears did not stick very well. We will request for patches and as needed lozenges. Continue to encourage cessation. Status: Acute Plan HTN HLD Overweight Attestations Medical Necessity Statement*: Place in observation for additional assessment and management of possible CVA in a 36-year-old gentleman. Coding Level of Care Code Acute Medical Records Clerk for Daydayg Fwd Diagnoses Right sided weakness R53.1 Numbness on right side R20.0 Focal neurological deficit R29.818 Vertigo R42 Difficulty walking R26.2 Falls W19.XXXA Left chest pressure R07.89 Smoker F17.200
[2021-09-20] VITALS (9 sets, daily range): BP systolic 97–132; BP diastolic 45–93; PULSE 51–59; RESP 14–18; O2SAT 92–99
--- NOTE | 2021-09-20 00:05 | USCV_ITS ---
Elian Parson Age: 36 Gender: M : 1985 Exam Date: 09/20/2021 02:19 Ordering Phys: Andrade Zavala MD Technologist: GLENIS Exam Location: [facility] – [place] Indication: RIGHT hemiparesis episode, weakness, light-headed. Hx cardiac angio 2020. Hx [place] x 2 in 2017 BP: 145 / 93 HR: 54 Rhythm: Sinus Technical Quality: Adequate MEASUREMENTS (Male / Female) Normal Values 2D ECHO LV Diastolic Diameter PLAX 4.2 cm 4.2 - 5.9 / 3.9 - 5.3 cm LV Systolic Diameter PLAX 2.8 cm IVS Diastolic Thickness 1.0 cm 0.6 - 1.0 / 0.6 - 0.9 cm IVS Systolic Thickness 1.8 cm LVPW Diastolic Thickness 1.1 cm 0.6 - 1.0 / 0.6 - 0.9 cm LVPW Systolic Thickness 1.5 cm LVOT Diameter 1.9 cm LV Ejection Fraction 2D Teich 60.2 % LV Ejection Fraction MOD 2C 72.8 % LV Ejection Fraction 2C AL 72.7 % LA Diameter 3.5 cm LA Width 3.4 cm LA Height 4.8 cm RA Width 3.6 cm RA Height 4.8 cm Aorta at Sinotubular Diameter 2.5 cm IVC Diameter 1.7 cm M-MODE Aortic Annulus Diameter 2.5 cm LA Ao Ratio MM 1.4 MV E Point Septal Separation 0.2 cm DOPPLER AV Peak Velocity 120.0 cm/s LVOT Peak Velocity 96.0 cm/s AV Area Cont Eq vti 1.4 cm squared AV Area Cont Eq pk 2.2 cm squared MV Area PHT 3.9 cm squared Mitral E to A Ratio 1.5 MV E' Velocity 51.5 cm/s Mitral E to MV E' Ratio 7.5 Mitral E to LV E' Lateral Ratio 7.5 Mitral E to LV E' Septal Ratio 7.5 TR Peak Velocity 212.5 cm/s TR Peak Gradient 18.1 mmHg TV Peak E Velocity 47.0 cm/s Right Atrial Pressure 5.0 mmHg Pulmonary Artery Systolic Pressu 23.1 mmHg PV Peak Velocity 87.0 cm/s RV Acceleration Time 0.1 s RV Ejection Time 0.4 s RV AcT/ET 0.2 FINDINGS Left Ventricle Normal left ventricular size and systolic function, EF 73 %. No regional wall motion abnormalities. Right Ventricle The right ventricle is normal in size and function. Right Atrium The right atrium is normal in size. Left Atrium The left atrium is normal in size. Mitral Valve Trace mitral valve regurgitation. Aortic Valve No gross abnormalities noted Tricuspid Valve Trace tricuspid valve regurgitation. Pulmonic Valve No gross abnormalities noted Pericardium Normal pericardium without effusion. Aorta Normal ascending aorta dimension. IVC Normal inferior vena cava. CONCLUSIONS Normal left ventricular size and systolic function, EF 73 %. No regional wall motion abnormalities. Trace tricuspid valve regurgitation. Trace mitral valve regurgitation. There is no pericardial effusion. There are no intracardiac masses. No similar previous studies are available for comparison Dr Claudia Nicole MD FACC (Electronically Signed) Final Date: 20 September 2021 14:48 S
--- NOTE | 2021-09-20 00:05 | MR_ITS ---
WS: [id number] MRI BRAIN WITHOUT CONTRAST HISTORY: Possible CVA, R side numbness, weakness, vertigo, falls COMPARISON: None available. TECHNIQUE: Diffusion imaging, multiplanar T1, T2 and FLAIR imaging obtained. No evidence for acute infarct or hemorrhage. Bui-white matter differentiation is normal. No remote or acute infarcts are volume loss. Ventricles and extra-axial spaces are normal. No inferior displacement of cerebellar tonsils. The sella turcica and pituitary gland are unremarkabl e. Dural venous sinuses and venetie of [place] demonstrate no abnormality on this unenhanced studies. Paranasal sinuses: Clear. Mastoid air cells: Normal. Calvarium and scalp: Intact. MR/MR head wo con* [id number] IMPRESSION: 1. Normal MRI brain. 2. No acute infarct or signal abnormality within the brain. Normal diffusion s equence.
[2021-09-20 00:25] LABS: Alanine Aminotransferase 32 U/L (0-41); Albumin Level 4.8 g/dL (3.5-5.2); Alkaline Phosphatase 66 IU/L (40-130); Anion Gap 15.1 (5-19); Aspartate Amino Transferase 23 U/L (0-40); Blood Urea Nitrogen 12 mg/dL (6-20); Calcium 9.3 mg/dL (8.5-10.5); Carbon Dioxide 29 mmol/L (22-29); Chloride 100 mmol/L (98-107); Globulin 1.7 g/dL (1.3-4.6); Glomerular Filtration Rate 83.6 mL/min (90-130); Glucose 78 mg/dL (65-115); Lipase 30 U/L (13-60); Osmolality Calculated 289 mOsm/kg (285-295); Potassium 4.1 mmol/L (3.5-5.1); Sodium 140 mmol/L (136-145); Total Bilirubin 0.3 mg/dL (0.15-1.2); Total Protein 6.5 g/dL (6.6-8.7)
[2021-09-20 00:27] LABS: Troponin(5th) Baseline 6 ng/L (0-15)
--- NOTE | 2021-09-20 00:53 | ECG_ITS ---
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 Measurements Intervals [place] Rate: 65 P: 47 WI: 179 QRS: 27 QRSD: 92 T: 44 QT: 394 QTc: 411 Interpretive Statements SINUS RHYTHM Compared to ECG 09/19/2021 22:54:26 T-wave abnormality no longer present Electronically Signed On 09-20-2021 21:18:29 CDT by Claudia Nicole M.D. [id number]
[2021-09-20] MEDS: heparin 5,000 unit/mL INJ 1 mL 5000 UNIT SUBCUT ×2 (01:03→08:25)
[2021-09-20] MEDS: aspirin 81 mg EC Tablet 162 MG PO ×2 (01:03→08:24)
[2021-09-20] MEDS: nicotine 14 mg Patch 1 PATCH TRANSDERMA ×2 (01:03→08:25)
[2021-09-20 02:33] LABS: Troponin 5 2HR Delta 0 ABS# (0-10)
--- NOTE | 2021-09-20 04:53 | ECG_ITS ---
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 Measurements Intervals [place] Rate: 56 P: 53 OR: 180 QRS: 5 QRSD: 100 T: 47 QT: 436 QTc: 422 Interpretive Statements SINUS BRADYCARDIA Compared to ECG 09/20/2021 00:35:42 Sinus rhythm no longer present Electronically Signed On 09-20-2021 21:19:35 CDT by Claudia Nicole M.D. [id number]
[2021-09-20] MEDS: isosorbide mononitrate ER 60 mg Tablet PO (05:49)
[2021-09-20] MEDS: morphine 4 mg/mL SDV 1 mL IVP (06:16)
[2021-09-20 06:27] LABS: Troponin 5 6HR Delta 0 ng/L (0-12)
[2021-09-20] MEDS: acetaminophen 325 mg Tablet 650 MG PO (06:56)
[2021-09-20] MEDS: metoprolol tartrate 50 mg Tablet PO (08:25)
--- NOTE | 2021-09-20 09:40 | PC.NURSE ---
Patient in MRI
--- NOTE | 2021-09-20 10:44 | USCV_ITS ---
Elian Parson Age: 36 Gender: M : 1985 Exam Date: 09/20/2021 10:53 Ordering Phys: Alba Onofre MD Technologist: ABILIO Exam Location: [facility] [place] Indication: RIGHT SIDED WEAKNESS Risk Factors: Previous Vascular Surgery: Right Brachial BP: / Left Brachial BP: / Right Left Velocity (cm/s) Spectral Plaque Velocity (cm/s) Spectral Plaque Syst/Diast Broadening Syst/Diast Broadening 100.90/14.60 Prox CCA 76.20 / 16.90 95.90/ 23.20 Mid CCA 101.20/ 15.80 95.70/ 20.80 Distal CCA 119.60/ 28.90 94.00/ 32.50 Prox ICA 98.60 / 27.60 65.10/ 25.90 Mid ICA 87.10 / 32.10 71.50/ 34.00 Distal ICA 75.60 / 29.80 143.30 ECA 108.50 0.93 ICA/CCA 0.82 Antegrade Vertebral Antegrade 52.10/ 17.90 cm/s 50.90/ 19.20 cm/s Tri Subclavian Tri 126.2 94.20 0 CONCLUSIONS Right ICA stenosis <50%. Left ICA stenosis <50%. Normal antegrade Doppler flow noted in the right vertebral artery. Normal antegrade Doppler flow noted in the left vertebral artery. Sahil Trevino MD (Electronically Signed) Final Date: 20 September 2021 12:32 S
--- NOTE | 2021-09-20 13:21 | PM.DCS ---
Discharge Providers Date of Admission: 09/20/21 00:02 Date of Discharge: September 20, 2021 Attending Provider at Admission: Andrade Zavala Attending Provider at Discharge: Alba Onofre MD Diagnoses at Discharge Discharge Diagnosis (1) Focal neurological deficit: Status: Acute (2) Right sided weakness: Status: Acute (3) Numbness on right side: Status: Acute (4) Vertigo: Status: Acute (5) Difficulty walking: Status: Acute (6) Falls: Status: Acute (7) Left chest pressure: Status: Acute (8) Smoker: Status: Acute Reason for Visit Reason for Visit: Rt side [place]\Weakness Brief History: Pleasant 36-year-old gentleman with history of 2 times [place] without requiring stenting on assessment by angiogram, no prior CVA, smoking addiction which he has been cutting down down from 2 packs a day to about half a pack a day, hypertension, hyperlipidemia, prior cardiopulmonary arrest due to allergic reaction to baclofen, subsequently with cardiomyopathy, EF 45% He presents to the hospital today due to about 6-day duration of right side weakness, diminished sensation, as well as intermittent episodes of vertigo, sometimes worse when looking in a particular direction. He reports his weakness has affected his mobility so that he is almost fallen out of his truck. He denies any headache, although has been having some neck pain on the left side.? No fever or chills.? No rashes.? No recent tick bites. His also remembers that perhaps he was told before about having irregular heartbeat, possibly atrial fibrillation, they are not sure.? Although, discussed with them I do not see diagnosis of atrial fibrillation in documentation under his diagnoses or during the cardiology visit. He otherwise reports also has had some very brief, lasting about couple seconds episodes of chest pressure on the left side of his chest. Hospital Course Hospital Course Presented with right-sided weakness. CT head and neck did not show large vessel occlusion. Carotid Dopplers also negative. MRI of the brain also negative for any acute stroke. Counseled patient on smoking cessation and weight loss. I also counseled him to take his medications as directed. He stated that he has not taking his meds for the last 4 months. There is a question of atrial fibrillation which patient says he may have had however there is no documented evidence of it. We will set him up with an event monitor for 14 days. Discussed with cardiology over the phone. Troponins have been negative. Coronary angiogram has been done in the past and did not reveal any stent double lesions. He does not complain of any chest pain or chest pressure today. He states he has been fine. Neurological exam completely normal today and patient was cleared for physical therapy as well. There is a possibility that he may have been dehydrated and therefore got dizzy and fell as he was coming out of his truck. Heart rate mid 50s. I will cut down on his metoprolol dose to 25 twice daily. He did get a dose of 50 mg this morning. We will set him up with event monitor and discharge him home with follow-up with neurology, cardiology. There is a possibility that patient may have been having paroxysmal atrial fibrillation and possibly having TIAs. For that reason I will start him on aspirin, Plavix for 21 days and statin. We will have him follow-up with neuro, cardiology, primary care physician at discharge. After evaluation as an outpatient and after results of event monitor further management to be decided at that point. Physical Exam Narrative: General: Alert oriented x3, patient seen sitting up in bed with at bedside appearing comfortable. laughing and happy HEENT: Normocephalic, atraumatic, EOMI, breathing normally on room air. Cardio: Regular rate rhythm, normal S1-S2, no murmurs Respiratory: Good bilateral air entry, no wheezes no rhonchi appreciated GI: Abdomen soft, nontender, nondistended, bowel sounds + Behavior: Appropriate and cooperative Extremities: Pulses 2+, no edema, no cyanosis Neuro: Non focal, CN 2-12 intact, no weakness upper or lower extremity. no cerebellar signs Discharge Data Studies Completed and Pending Completed Studies During Hospitalization Category Date Time Status CT head wo con* [id number] Stat Cat Scan 09/19/21 18:53 Completed CTA head neck [CT angio headneck* [id number]] Urgent Cat Scan 09/19/21 21:02 Completed MR head wo con* [id number] Urgent MRI 09/20/21 00:05 Completed CV carotid duplex BI* [id number] Urgent Ultrasound 09/20/21 10:44 Completed Pending at discharge Category Date Time Status Complete Blood Count w/Auto AM LABS Lab 09/21/21 04:00 Ordered Complete Blood Count w/Auto AM LABS Lab 09/22/21 04:00 Ordered Complete Blood Count w/Auto AM LABS Lab 09/23/21 04:00 Ordered Comprehensive Metabolic Panel AM LABS Lab 09/21/21 04:00 Ordered Comprehensive Metabolic Panel AM LABS Lab 09/22/21 04:00 Ordered Comprehensive Metabolic Panel AM LABS Lab 09/23/21 04:00 Ordered CV. echo complete* [id number] Routine Ultrasound 09/20/21 00:05 Taken Radiology Impressions Head CT 09/19/21 18:53 IMPRESSION: No acute intracranial abnormality. Head/Neck CTA 09/19/21 21:02 IMPRESSION: No large vessel stenosis or occlusion. IMPRESSION: No stenosis or occlusion. REFERENCES: NASCET CRITERIA. The degree of internal carotid artery stenosis is based on NASCET criteria. Normal is no stenosis. Mild is less than 50% stenosis. Moderate is 50-69% stenosis. Severe is 70% to 99% stenosis. Total occlusion is no detectable patent lumen. Head MRI 09/20/21 00:05 IMPRESSION: 1. Normal MRI brain. 2. No acute infarct or signal abnormality within the brain. Normal diffusion sequence. Laboratory Results WBC 6.7 10^3/uL (4.0-10.0) 09/19/21 23:50 RBC 5.45 10^6/uL (4.1-5.3) H 09/19/21 23:50 Hgb 16.2 g/dL (11.7-16.6) 09/19/21 23:50 Hct 49.1 % (42.0-52.0) 09/19/21 23:50 MCV 90.1 fl (80-94) 09/19/21 23:50 MCH 29.7 pg (28.0-34.0) 09/19/21 23:50 MCHC 33.0 g/dL (30.0-36.0) 09/19/21 23:50 RDW 12.4 % (12.1-15.1) 09/19/21 23:50 Plt Count 289 10^3/cmm (130-400) 09/19/21 23:50 MPV 11.4 fL (7.4-10.4) H 09/19/21 23:50 Neut % (Auto) 53.7 % 09/19/21 23:50 Lymph % (Auto) 32.9 % 09/19/21 23:50 [place] % (Auto) 6.7 % 09/19/21 23:50 Eos % (Auto) 5.7 % 09/19/21 23:50 Baso % (Auto) 0.7 % 09/19/21 23:50 Neut # (Auto) 3.59 10^3/uL (1.8-7.7) 09/19/21 23:50 Lymph # (Auto) 2.2 10^3/uL (0.8-4.8) 09/19/21 23:50 [place] # (Auto) 0.5 10^3/uL (0.2-0.9) 09/19/21 23:50 Eos # (Auto) 0.4 10^3/uL (0.0-0.8) 09/19/21 23:50 Baso # (Auto) 0.1 10^3/uL (0.0-0.1) 09/19/21 23:50 Nucleated RBC % (auto) 0 % 09/19/21 23:50 Nucleated RBCs # 0.0 /100WBC 09/19/21 23:50 Sodium 140 mmol/L (136-145) 09/19/21 23:50 Potassium 4.1 mmol/L (3.5-5.1) 09/19/21 23:50 Chloride 100 mmol/L (98-107) 09/19/21 23:50 Carbon Dioxide 29 mmol/L (22-29) 09/19/21 23:50 Anion Gap 15.1 (5-19) 09/19/21 23:50 BUN 12 mg/dL (6-20) 09/19/21 23:50 Creatinine 1.0 mg/dL (0.7-1.2) 09/19/21 23:50 GFR Calculation 83.6 mL/min (90-130) L 09/19/21 23:50 Glucose 78 mg/dL (65-115) 09/19/21 23:50 Calculated Osmolality 289 mOsm/kg (285-295) 09/19/21 23:50 Calcium 9.3 mg/dL (8.5-10.5) 09/19/21 23:50 Total Bilirubin 0.3 mg/dL (0.15-1.2) 09/19/21 23:50 AST 23 U/L (0-40) 09/19/21 23:50 ALT 32 U/L (0-41) 09/19/21 23:50 Alkaline Phosphatase 66 IU/L (40-130) 09/19/21 23:50 Troponin T Baseline 6 ng/L (0-15) 09/19/21 23:50 Troponin T 120 Minute 6.00 ng/L (0-15) 09/20/21 02:05 Delta Troponin T 0 ABS# (0-10) 09/20/21 02:05 Troponin T Hi Sens 6Hr 6.00 ng/L (0-15) 09/20/21 05:52 Troponin T Hi Sens 6Hr Delta 0 ng/L (0-12) 09/20/21 05:52 Total Protein 6.5 g/dL (6.6-8.7) L 09/19/21 23:50 Albumin 4.8 g/dL (3.5-5.2) 09/19/21 23:50 Globulin 1.7 g/dL (1.3-4.6) 09/19/21 23:50 Lipase 30 U/L (13-60) 09/19/21 23:50 Vitals Last Vital Signs Temp 98.0 F 09/19/21 22:11 Pulse 59 L 09/20/21 10:00 Resp 18 09/20/21 10:00 BP 111/48 09/20/21 10:00 Pulse Ox 98 09/20/21 10:00 Discharge Plan Discharge Patient Disposition: Home Condition: Stable Prescriptions: New atorvastatin 40 mg Tablet 40 mg PO BEDTIME 30 Days Qty: 30 0RF metoprolol tartrate 50 mg Tablet 25 mg PO BID 30 Days Qty: 30 0RF clopidogrel [Plavix] 75 mg tablet 75 mg PO DAILY 21 Days Qty: 21 0RF Continued nitroglycerin 0.4 mg tablet, sublingual 0.4 mg sublingual Q5M PRN (Reason: Chest Pain) 0RF Rx Instructions: do not exceed 3 doses per episode albuterol sulfate [ProAir HFA] 90 mcg/actuation Hfa Aerosol Inhaler 2 puff INHALATION QID PRN (Reason: Shortness Of Breath) 0RF aspirin 81 mg tablet,delayed release (DR/EC) 81 mg PO QAM 30 Days Qty: 30 0RF isosorbide mononitrate 60 mg tablet extended release 24 hr 60 mg PO QAM 30 Days Qty: 30 0RF omeprazole 40 mg capsule,delayed release(DR/EC) 40 mg PO DAILY PRN (Reason: Acid Reflux) 30 Days Qty: 30 0RF Discontinued simvastatin 10 mg tablet 10 mg PO QAM 0RF diclofenac sodium 50 mg tablet,delayed release (DR/EC) 50 mg PO TID PRN (Reason: Pain) 0RF metoprolol tartrate 50 mg tablet 50 mg PO BID 0RF Discharge Orders: Discharge Order (Routine); Ordered 09/20/21 Ordered By: Alba Onofre Other Ambulatory Orders: MCT/Event Monitor 14 Days (Routine) Timeframe: 1 Day Facility: [facility] - Location: Radiology Ordered By: Alba Onofre Referrals: Valerie Nevarez MD [Physician] - 7-10 days Diamond Larry MD [Physician] - 1 week Discharge Diet: Cardiac Discharge Activity: Increase activity as tolerated Patient Instructions: Opioid Safety Activity Restrictions/Additional Instructions: Please follow-up with your primary care physician in 4 to 7 days. Please take your medications as directed and be compliant. Please use the event monitor as directed. Follow-up with cardiology. Follow-up with neurology within 2 weeks. Patient advised to stop smoking. Discharge Attestations Time Spent in Discharge Care*: greater than 30 min Quality Metrics Clinical Quality Measures [ No reported AMI, CVA or VTE this stay] Coding Level of Care Code Acute Chg FW DC note Diagnoses Focal neurological deficit R29.818 Right sided weakness R53.1 Numbness on right side R20.0 Vertigo R42 Difficulty walking R26.2 Falls W19.XXXA Left chest pressure R07.89 Smoker F17.200
--- NOTE | 2021-09-20 15:39 | PC.OT ---
OT NOTE: OT EVALUATION ORDERS RECEIVED. PER P.T. NO DEFICITS NOTED IN P.T. EVALUATION AND PATIENT IS SCHEDULED FOR DISCHARGE.
--- NOTE | 2021-09-21 12:56 | DCPLANNER ---
Addendum entered by Jessie Lewis 11/15/21 09:09: Patient had a follow up appointment with heart care - patient did attend appointment Patient had a follow up appointment with neurology - patient did not attend appointment. Addendum entered by Jessie Lewis 09/26/21 13:48: Patient has a follow up appointment scheduled for November at 3:[address] Larry at [facility] [place]. Clinic will call patient with appointment information. Patient has a follow up appointment scheduled for Sunday, October 10, 2021 at 1:30 with Bunny at neurology. Clinic will call patient with appointment information. Addendum entered by Jessie Lewis 09/21/21 12:59: performing arts road manager had message to schedule a follow up appointment with patients primary care physician. Patient told case making machine operator that he would schedule appointment with his primary care physician. performing arts road manager also was asked to arrange for patient to go to heart care upon discharge to get fitted for 14 day halter monitor. performing arts road manager called heart care, spoke with Jordana was told that when patient discharged from the ER for him to go to heart care. Patient went to heart care for halter monitor when he discharged from the ER. Original Note: performing arts road manager had message to schedule a follow up appointment for patient with neurology and cardiology. performing arts road manager sent patients information to the front office staff at neurology and cardiology. Patients information will be printed and reviewed. The clinics will call patient with appointment information.
== END 2021-09-20 15:17 | disposition home or self-care (01) ==
LOC: ER 21:12 → ER IP 09-20 00:46
PROVIDERS: Admitting Provider Internal Medicine; Emergency Provider Emergency Medicine; Visit Provider Internal Medicine
DX: R29.818 Other symptoms and signs involving the nervous system (principal); R53.1 Weakness; R20.0 Anesthesia of skin; R42 Dizziness and giddiness; R26.2 Difficulty in walking, not elsewhere classified; Z91.81 History of falling; R07.89 Other chest pain; F17.200 Nicotine dependence, unspecified, uncomplicated; R00.1 Bradycardia, unspecified; I25.2 Old myocardial infarction; I10 Essential (primary) hypertension; E78.5 Hyperlipidemia, unspecified; Z79.82 Long term (current) use of aspirin; R00.0 Tachycardia, unspecified
CPT/HCPCS: 36415; 70450; 70496; 70498; 70551; 80053; 83690; 84484; 85025; 93005; 93229; 93306; 93880; 96372; 96374; 97161; 99285; G0378; J1644; J2270; Q9967

== ENCOUNTER 2022-03-11 09:46 | Emergency (ER) | payer MEDICAID, SELFPAY ==
[2022-03-11] VITALS (9 sets, daily range): BP systolic 128–134; BP diastolic 87–88; PULSE 87; RESP 14–16; TEMP 36.4; O2SAT 97–99; BMI 29.7
--- NOTE | 2022-03-11 10:04 | ECG_ITS ---
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 Measurements Intervals [place] Rate: 81 P: 50 NV: 156 QRS: 33 QRSD: 102 T: 32 QT: 364 QTc: 425 Interpretive Statements SINUS RHYTHM POSSIBLE RIGHT VENTRICULAR CONDUCTION DELAY [RSR (QR) IN V1/V2] Compared to ECG 09/20/2021 04:39:35 Sinus bradycardia no longer present Electronically Signed On 03-11-2022 20:27:24 AGRONOMY INSTRUCTOR by Claudia Nicole M.D. [id number] f
--- NOTE | 2022-03-11 10:50 | XRR_ITS ---
PROCEDURE INFORMATION: Exam: XR Chest Exam date and time: 03/11/2022 10:56 AM Age: 36 years old Clinical indication: Other: Syncopal episodes TECHNIQUE: Imaging protocol: Radiologic exam of the chest. Views: 1 view. COMPARISON: CR XR chest 1V portable [id number] 08/09/2020 7:05 PM FINDINGS: Lungs: Unremarkable. No consolidation. Pleural spaces: Unremarkable. No pleural effusion. No pneumothorax. Heart/Mediastinum: Unremarkable. No cardiomegaly. Bones/joints: Unremarkable. XR/XR chest 1V portable [id number] IMPRESSION: No acute findings.
--- NOTE | 2022-03-11 10:51 | ECG_ITS ---
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 Measurements Intervals [place] Rate: 68 P: 34 PA: 164 QRS: 1 QRSD: 105 T: 17 QT: 389 QTc: 414 Interpretive Statements SINUS RHYTHM POSSIBLE RIGHT VENTRICULAR CONDUCTION DELAY [RSR (QR) IN V1/V2] Compared to ECG 09/20/2021 04:39:35 Sinus bradycardia no longer present Electronically Signed On 03-11-2022 20:29:26 ARCHAEOLOGIST by Claudia Nicole M.D. [id number]
[2022-03-11 11:19] LABS: Basophils % 0.5 %; Eosinophils # 0.2 10^3/uL (0.0-0.8); Eosinophils % 2.5 %; Hemoglobin 15.8 g/dL (11.7-16.6); Lymphocytes # 1.3 10^3/uL (0.8-4.8); Lymphocytes % 15.7 %; Mean Corpuscular HGB Conc 32.9 g/dL (30.0-36.0); Mean Corpuscular Hemoglobin 28.4 pg (28.0-34.0); Mean Corpuscular Volume 86.3 fl (80-94); Mean Platelet Volume 11.2 fL (7.4-10.4); Monocytes # 0.5 10^3/uL (0.2-0.9); Monocytes % 6.1 %; Neutrophils # 6.28 10^3/uL (1.8-7.7); Nucleated Red Blood Cells % 0 %; Platelet Count 297 10^3/cmm (130-400); Red Blood Count 5.56 10^6/uL (4.1-5.3); White Blood Count 8.4 10^3/uL (4.0-10.0)
--- NOTE | 2022-03-11 11:33 | W.ED.SYNCOPE ---
Documented by User: RADHA Bonilla 03/12/22 08:13 HPI - Syncope General: Chief Complaint: Syncope Stated Complaint: sent by doctor, fall Time Seen by Provider: 03/11/22 10:50 History of Present Illness: Patient is a 36-year-old male comes to the ED after syncopal episode. Patient says syncopal episode occurred 2 days ago. He got up in the morning and was feeling a little dizzy while he was sitting on the couch. He then got up to go to his bedroom to lay down and had syncopal episode and was found on the floor. Denies any preceding chest pain or diaphoresis. After syncopal episode he was having a bloody nose and pain on the left maxillary region of face and left periorbital region. Since fall he complains of having headaches and blurry vision in left eye. He says his vision in left eye is episodic and sometimes he will have normal vision and then all of a sudden he will start having blurry vision or no vision in left eye. Here in the ED currently he is complaining of having some blurry vision in left eye. He went and saw his PCP today and they told him to come here to the ED for further evaluation. Associated symptoms: Deny abdominal pain, chest pain, fever(s), headache(s) or nausea Review of Systems Const: Denies: fever(s), chills or fatigue Eyes: Reports: blurry vision (left eye); Denies: change in vision or eye discomfort ENMT: Denies: throat pain, odynophagia, nasal discharge or nasal congestion Card: Reports: syncope; Denies: chest pain, palpitations, edema, swelling of feet/ankles, dyspnea on exertion or orthopnea Resp: Denies: dyspnea, productive cough or non-productive cough GI: Denies: abdominal pain, nausea, vomiting, diarrhea, constipation or hematochezia : Denies: flank pain, difficulty urinating, dysuria or hematuria Musc: Denies: neck pain, back pain or extremity swelling Skin/Breast: Denies: rash or new lesions Neuro: Denies: headache(s), numbness in extremities or weakness in extremities [facility] ED PFSH: Medical History (Updated 03/11/22 @ 13:31 by RADHA Bonilla) Cardiomyopathy Cardiopulmonary arrest HTN (hypertension) Hyperlipidemia Psychiatric care Surgical History H/O coronary angiogram History of surgery Stomach surgery as a infant Family History Father CAD (coronary artery disease) Myocardial infarction Family/Other Myocardial infarction Stroke CAD (coronary artery disease) Grandfather Stroke Denies family history of Diabetes Social History Smoking and tobacco status: former smoker Alcohol intake: current Alcohol intake frequency: holidays/special occasions only Lives independently: Yes Household members: spouse Marital status: Number of children: 4 Physical Exam Const: COMMON NORMALS: no acute distress, patient oriented x3 and alert HENMT: COMMON NORMALS: normocephalic HEAD & SCALP: normocephalic FACE & SINUS: Facial tenderness on exam of face and sinuses on the left maxilla MOUTH: Normal oral and palatal mucosa present THROAT: posterior oropharynx normal and uvula midline Eye: COMMON NORMALS: Equal, round and reactive pupils present and EOMs intact bilaterally PERIORBITAL: periorbital findings abnormal positive left periorbital tenderness; no swelling, no erythema and no ecchymosis PUPIL: Yes Equal, round and reactive pupils present Neck/C-Spine: COMMON NORMALS: supple GENERAL: Yes normal visual inspection Resp: COMMON NORMALS: normal respiratory effort, No retractions, No use of accessory muscles and clear to auscultation bilaterally AUSCULTATION: clear to auscultation bilaterally Cardio: COMMON NORMALS: regular rate, regular rhythm, S1 normal heart sound present, S2 normal heart sound present, No gallops present (Cardio), No clicks present (Cardio), No murmurs present (Cardio) and Peripheral pulses 2+ throughout RATE: regular rate RHYTHM: regular rhythm HEART SOUNDS: S1 normal heart sound present and S2 normal heart sound present PERIPHERAL PULSES: Peripheral pulses 2+ throughout GI: COMMON NORMALS: Normal to inspection, nondistended, normoactive bowel sounds present, Soft to palpation, non-tender and no masses PALPATION: Yes Soft to palpation : COMMON NORMALS: Yes no CVA tenderness BLADDER/KIDNEY EXAM: Yes no CVA tenderness Back/Pelvis: COMMON NORMALS: no CVA tenderness Extremity: COMMON NORMALS: normal to inspection Neuro: COMMON NORMALS: patient oriented x3, CN's II-XII intact bilaterally, moves all extremities, no focal motor deficits and no sensory deficits noted SENSORIUM/ORIENTATION: Yes alert COORDINATION/BALANCE: [id number]-[id number] test normal SPEECH: speech normal GAIT: Yes Normal gait present MOTOR EXAM: 5/5 motor strength present throughout COORDINATION: [id number] test normal Skin: GENERAL SKIN EXAM: dry skin Course Vital Signs: Vital signs: Vital Signs Temperature 97.6 F 03/11/22 09:57 Pulse Rate 87 03/11/22 09:57 Respiratory Rate 16 03/11/22 13:57 Blood Pressure 134/88 03/11/22 13:30 Pulse Oximetry 99 03/11/22 13:00 Oxygen Delivery Me thod 03/11/22 09:57 MDM - Syncope Medical Decision Making Patient is a 36-year-old male comes to the ED after syncopal episode. Patient says syncopal episode occurred 2 days ago. He got up in the morning and was feeling a little dizzy while he was sitting on the couch. He then got up to go to his bedroom to lay down and had syncopal episode and was found on the floor. Denies any preceding chest pain or diaphoresis. After syncopal episode he was having a bloody nose and pain on the left maxillary region of face and left periorbital region. Since fall he complains of having headaches and blurry vision in left eye. He says his vision in left eye is episodic and sometimes he will have normal vision and then all of a sudden he will start having blurry vision or no vision in left eye. Vitals are stable. Exam of patient is benign and neuro exam shows no deficits. Face CT and head CT showed no acute findings. Chest x-ray shows no acute findings labs are unremarkable troponin is negative. EKG shows no acute findings. Patient was diagnosed with episode of syncope and was stable for discharge home. He was told to follow-up with his PCP in the next week for reevaluation. Return to ED precautions given. Patient understood and agreed with plan. Lab Data I reviewed the patient's lab results. 03/11/22 11:10 03/11/22 11:10 Radiology Impressions Chest X-Ray 03/11/22 10:50 IMPRESSION: No acute findings. Face CT 03/11/22 11:36 IMPRESSION: No acute findings. Head CT 03/11/22 11:36 IMPRESSION: No acute intracranial abnormality. Laboratory Results WBC 8.4 10^3/uL (4.0-10.0) 03/11/22 11:10 RBC 5.56 10^6/uL (4.1-5.3) H 03/11/22 11:10 Hgb 15.8 g/dL (11.7-16.6) 03/11/22 11:10 Hct 48.0 % (42.0-52.0) 03/11/22 11:10 MCV 86.3 fl (80-94) 03/11/22 11:10 MCH 28.4 pg (28.0-34.0) 03/11/22 11:10 MCHC 32.9 g/dL (30.0-36.0) 03/11/22 11:10 RDW 13.0 % (12.1-15.1) 03/11/22 11:10 Plt Count 297 10^3/cmm (130-400) 03/11/22 11:10 MPV 11.2 fL (7.4-10.4) H 03/11/22 11:10 Neut % (Auto) 75.0 % 03/11/22 11:10 Lymph % (Auto) 15.7 % 03/11/22 11:10 Sanborn % (Auto) 6.1 % 03/11/22 11:10 Eos % (Auto) 2.5 % 03/11/22 11:10 Baso % (Auto) 0.5 % 03/11/22 11:10 Neut # (Auto) 6.28 10^3/uL (1.8-7.7) 03/11/22 11:10 Lymph # (Auto) 1.3 10^3/uL (0.8-4.8) 03/11/22 11:10 Sanborn # (Auto) 0.5 10^3/uL (0.2-0.9) 03/11/22 11:10 Eos # (Auto) 0.2 10^3/uL (0.0-0.8) 03/11/22 11:10 Baso # (Auto) 0.0 10^3/uL (0.0-0.1) 03/11/22 11:10 Nucleated RBC % (auto) 0 % 03/11/22 11:10 Nucleated RBCs # 0.0 /100WBC 03/11/22 11:10 Sodium 138 mmol/L (136-145) 03/11/22 11:10 Potassium 4.4 mmol/L (3.5-5.1) 03/11/22 11:10 Chloride 101 mmol/L (98-107) 03/11/22 11:10 Carbon Dioxide 27 mmol/L (22-29) 03/11/22 11:10 Anion Gap 14.4 (5-19) 03/11/22 11:10 BUN 7 mg/dL (6-20) 03/11/22 11:10 Creatinine 0.7 mg/dL (0.7-1.2) 03/11/22 11:10 GFR Calculation 126.2 mL/min (90-130) 03/11/22 11:10 Glucose 87 mg/dL (65-115) 03/11/22 11:10 Calculated Osmolality 283 mOsm/kg (285-295) L 03/11/22 11:10 Calcium 8.5 mg/dL (8.5-10.5) 03/11/22 11:10 Total Bilirubin 0.4 mg/dL (0.15-1.2) 03/11/22 11:10 AST 16 U/L (0-40) 03/11/22 11:10 ALT 17 U/L (0-41) 03/11/22 11:10 Alkaline Phosphatase 65 U/L (40-130) 03/11/22 11:10 Troponin T Baseline 6 ng/L (0-15) 03/11/22 11:10 Troponin T 120 Minute 6.00 ng/L (0-15) 03/11/22 13:30 Delta Troponin T 0 ABS# (0-10) 03/11/22 13:30 Total Protein 7.0 g/dL (6.6-8.7) 03/11/22 11:10 Albumin 4.6 g/dL (3.5-5.2) 03/11/22 11:10 Globulin 2.4 g/dL (1.3-4.6) 03/11/22 11:10 EKG Data EKG 1: EKG interpretation date: 03/11/22 Interpretation: Sinus rhythm, 62 bpm, no ST segment elevation or depression seen. Discharge Plan Discharge Patient Disposition: Home Clinical Impression: Episode of syncope Qualifiers: Syncope type: unspecified Qualified Code(s): R55 - Syncope and collapse Condition: Stable Prescriptions: No Action No Known Home Medications Discharge Orders: Discharge ED (Routine); Ordered 03/11/22 Ordered By: Jamie Pritchett Referrals: Bunny Parry MD [Primary Care Provider] - Discharge Diet: Regular Discharge Activity: Increase activity as tolerated Patient Instructions: Syncope (DC) Activity Restrictions/Additional Instructions: Follow-up with medical provider as directed in the next 5 to 7 days for reevaluation. Continue taking all home medications as previously prescribed. Take [id number] Tylenol or ibuprofen to help with pain. Return to the ER or your medical provider if condition worsens. Please read and understand discharge instructions. Thank you for choosing [facility] for your healthcare needs today. Please realize this is an emergency room and that we are providing you with a medical screening exam and this may not be complete and all inclusive of all the testing and or work up that you may need to determine your ailment or severity of your illness. It is very important that you follow up as instructed or that you return to the Emergency Department should you have concerns or if your condition changes or worsens in any way. Coding Level of Care Code ED Supervisor [employer] for [employer] Exam Comprehensive Documented by User: Benigno Manzo DO 03/12/22 14:55 HPI - Syncope General: Chief Complaint: Syncope Stated Complaint: sent by doctor, fall Time Seen by Provider: 03/11/22 10:50 [facility] ED PFSH: Medical History (Updated 03/11/22 @ 13:31 by RADHA Bonilla) Cardiomyopathy Cardiopulmonary arrest HTN (hypertension) Hyperlipidemia Psychiatric care Surgical History H/O coronary angiogram History of surgery Stomach surgery as a Family History Father CAD (coronary artery disease) Myocardial infarction Family/Other Myocardial infarction Stroke CAD (coronary artery disease) Grandfather Stroke Denies family history of Diabetes Social History Smoking and tobacco status: former smoker Alcohol intake: current Alcohol intake frequency: holidays/special occasions only Lives independently: Yes Household members: spouse Marital status: Number of children: 4 Course Vital Signs: Vital signs: Vital Signs Temperature 97.6 F 03/11/22 09:57 Pulse Rate 87 03/11/22 09:57 Respiratory Rate 16 03/11/22 13:57 Blood Pressure 134/88 03/11/22 13:30 Pulse Oximetry 99 03/11/22 13:00 Oxygen Delivery Me thod 03/11/22 09:57 MDM - Syncope Medical Decision Making Patient is a 36-year-old male comes to the ED after syncopal episode. Patient says syncopal episode occurred 2 days ago. He got up in the morning and was feeling a little dizzy while he was sitting on the couch. He then got up to go to his bedroom to lay down and had syncopal episode and was found on the floor. Denies any preceding chest pain or diaphoresis. After syncopal episode he was having a bloody nose and pain on the left maxillary region of face and left periorbital region. Since fall he complains of having headaches and blurry vision in left eye. He says his vision in left eye is episodic and sometimes he will have normal vision and then all of a sudden he will start having blurry vision or no vision in left eye. Vitals are stable. Exam of patient is benign and neuro exam shows no deficits. Face CT and head CT showed no acute findings. Chest x-ray shows no acute findings labs are unremarkable troponin is negative. EKG shows no acute findings. Patient was diagnosed with episode of syncope and was stable for discharge home. He was told to follow-up with his PCP in the next week for reevaluation. Return to ED precautions given. Patient understood and agreed with plan. Chart reviewed and patient discussed with midlevel. Agree with assessment and plan. Lab Data 03/11/22 11:10 03/11/22 11:10 Radiology Impressions Chest X-Ray 03/11/22 10:50 IMPRESSION: No acute findings. Face CT 03/11/22 11:36 IMPRESSION: No acute findings. Head CT 03/11/22 11:36 IMPRESSION: No acute intracranial abnormality. Laboratory Results WBC 8.4 10^3/uL (4.0-10.0) 03/11/22 11:10 RBC 5.56 10^6/uL (4.1-5.3) H 03/11/22 11:10 Hgb 15.8 g/dL (11.7-16.6) 03/11/22 11:10 Hct 48.0 % (42.0-52.0) 03/11/22 11:10 MCV 86.3 fl (80-94) 03/11/22 11:10 MCH 28.4 pg (28.0-34.0) 03/11/22 11:10 MCHC 32.9 g/dL (30.0-36.0) 03/11/22 11:10 RDW 13.0 % (12.1-15.1) 03/11/22 11:10 Plt Count 297 10^3/cmm (130-400) 03/11/22 11:10 MPV 11.2 fL (7.4-10.4) H 03/11/22 11:10 Neut % (Auto) 75.0 % 03/11/22 11:10 Lymph % (Auto) 15.7 % 03/11/22 11:10 Sanborn % (Auto) 6.1 % 03/11/22 11:10 Eos % (Auto) 2.5 % 03/11/22 11:10 Baso % (Auto) 0.5 % 03/11/22 11:10 Neut # (Auto) 6.28 10^3/uL (1.8-7.7) 03/11/22 11:10 Lymph # (Auto) 1.3 10^3/uL (0.8-4.8) 03/11/22 11:10 Sanborn # (Auto) 0.5 10^3/uL (0.2-0.9) 03/11/22 11:10 Eos # (Auto) 0.2 10^3/uL (0.0-0.8) 03/11/22 11:10 Baso # (Auto) 0.0 10^3/uL (0.0-0.1) 03/11/22 11:10 Nucleated RBC % (auto) 0 % 03/11/22 11:10 Nucleated RBCs # 0.0 /100WBC 03/11/22 11:10 Sodium 138 mmol/L (136-145) 03/11/22 11:10 Potassium 4.4 mmol/L (3.5-5.1) 03/11/22 11:10 Chloride 101 mmol/L (98-107) 03/11/22 11:10 Carbon Dioxide 27 mmol/L (22-29) 03/11/22 11:10 Anion Gap 14.4 (5-19) 03/11/22 11:10 BUN 7 mg/dL (6-20) 03/11/22 11:10 Creatinine 0.7 mg/dL (0.7-1.2) 03/11/22 11:10 GFR Calculation 126.2 mL/min (90-130) 03/11/22 11:10 Glucose 87 mg/dL (65-115) 03/11/22 11:10 Calculated Osmolality 283 mOsm/kg (285-295) L 03/11/22 11:10 Calcium 8.5 mg/dL (8.5-10.5) 03/11/22 11:10 Total Bilirubin 0.4 mg/dL (0.15-1.2) 03/11/22 11:10 AST 16 U/L (0-40) 03/11/22 11:10 ALT 17 U/L (0-41) 03/11/22 11:10 Alkaline Phosphatase 65 U/L (40-130) 03/11/22 11:10 Troponin T Baseline 6 ng/L (0-15) 03/11/22 11:10 Troponin T 120 Minute 6.00 ng/L (0-15) 03/11/22 13:30 Delta Troponin T 0 ABS# (0-10) 03/11/22 13:30 Total Protein 7.0 g/dL (6.6-8.7) 03/11/22 11:10 Albumin 4.6 g/dL (3.5-5.2) 03/11/22 11:10 Globulin 2.4 g/dL (1.3-4.6) 03/11/22 11:10 Discharge Plan Discharge Patient Disposition: Home Clinical Impression: Episode of syncope Qualifiers: Syncope type: unspecified Qualified Code(s): R55 - Syncope and collapse Condition: Stable Prescriptions: No Action No Known Home Medications Discharge Orders: Discharge ED (Routine); Ordered 03/11/22 Ordered By: Jamie Pritchett Referrals: Bunny Parry MD [Primary Care Provider] - Discharge Diet: Regular Discharge Activity: Increase activity as tolerated Patient Instructions: Syncope (DC) Activity Restrictions/Additional Instructions: Follow-up with medical provider as directed in the next 5 to 7 days for reevaluation. Continue taking all home medications as previously prescribed. Take [id number] Tylenol or ibuprofen to help with pain. Return to the ER or your medical provider if condition worsens. Please read and understand discharge instructions. Thank you for choosing [facility] for your healthcare needs today. Please realize this is an emergency room and that we are providing you with a medical screening exam and this may not be complete and all inclusive of all the testing and or work up that you may need to determine your ailment or severity of your illness. It is very important that you follow up as instructed or that you return to the Emergency Department should you have concerns or if your condition changes or worsens in any way. Coding Level of Care Code ED Supervisor [employer] for Kelly Alcantara Exam Comprehensive
--- NOTE | 2022-03-11 11:36 | CTR_ITS ---
PROCEDURE INFORMATION: Exam: CT Maxillofacial Without Contrast Exam date and time: 03/11/2022 12:22 PM Age: 36 years old Clinical indication: Injury or trauma; Fall; Blunt trauma (contusions or hematomas); Orbit/periorbital; Left; Additional info: Syncopal episode and hit head-nosebleed, L periorbital pain TECHNIQUE: Imaging protocol: Computed tomography of the face without contrast. Radiation optimization: All CT scans at this facility use at least one of these dose optimization techniques: automated exposure control; mA and/or kV adjustment per patient size (includes targeted exams where dose is matched to clinical indication); or iterative reconstruction. COMPARISON: MR head wo con* [id number] 09/20/2021 9:20 AM RADIATION DOSE METRICS: Total DLP (mGy-cm): 628.9 FINDINGS: Orbital cavities: Orbits are normal. Globes are unremarkable. Bones/joints: No acute fracture. Paranasal sinuses: Normal. No air-fluid levels. Soft tissues: Unremarkable. CT/CT facial bones wo con* [id number] IMPRESSION: No acute findings.
--- NOTE | 2022-03-11 11:36 | CTR_ITS ---
PROCEDURE INFORMATION: Exam: CT Head Without Contrast Exam date and time: 03/11/2022 12:22 PM Age: 36 years old Clinical indication: Syncope and collapse; Additional info: Syncopal episode and hit head TECHNIQUE: Imaging protocol: Computed tomography of the head without contrast. Radiation optimization: All CT scans at this facility use at least one of these dose optimization techniques: automated exposure control; mA and/or kV adjustment per patient size (includes targeted exams where dose is matched to clinical indication); or iterative reconstruction. COMPARISON: MR head wo con* [id number] 09/20/2021 9:20 AM RADIATION DOSE METRICS: Total DLP (mGy-cm): 1805.88 FINDINGS: Brain: Normal. No hemorrhage. Unremarkable white matter. No mass effect. Cerebral ventricles: No ventriculomegaly. Paranasal sinuses: Visualized sinuses are unremarkable. No fluid levels. Mastoid air cells: Visualized mastoid air cells are well aerated. Bones/joints: Unremarkable. No acute fracture. Soft tissues: There is mild swelling of the soft tissues in the mid high parietal region. CT/CT head wo con* [id number] IMPRESSION: No acute intracranial abnormality.
[2022-03-11 11:42] LABS: Alanine Aminotransferase 17 U/L (0-41); Albumin Level 4.6 g/dL (3.5-5.2); Alkaline Phosphatase 65 U/L (40-130); Blood Urea Nitrogen 7 mg/dL (6-20); Calcium 8.5 mg/dL (8.5-10.5); Carbon Dioxide 27 mmol/L (22-29); Chloride 101 mmol/L (98-107); Creatinine Clr Calc Pharmacy 150.0315; Globulin 2.4 g/dL (1.3-4.6); Glomerular Filtration Rate 126.2 mL/min (90-130); Glucose 87 mg/dL (65-115); Osmolality Calculated 283 mOsm/kg (285-295); Sodium 138 mmol/L (136-145); Total Bilirubin 0.4 mg/dL (0.15-1.2)
[2022-03-11] MEDS: ondansetron 2 mg/ML SDV 2 mL 4 MG IVP (11:42)
[2022-03-11] MEDS: morphine 4 mg/mL SDV 1 mL IVP (11:42)
[2022-03-11 11:44] LABS: Troponin(5th) Baseline 6 ng/L (0-15)
[2022-03-11 11:46] LABS: Anion Gap 14.4 (5-19); Aspartate Amino Transferase 16 U/L (0-40); Potassium 4.4 mmol/L (3.5-5.1)
--- NOTE | 2022-03-11 12:35 | ECG_ITS ---
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 Measurements Intervals [place] Rate: 62 P: 40 LA: 163 QRS: 12 QRSD: 95 T: 19 QT: 408 QTc: 417 Interpretive Statements SINUS RHYTHM Compared to ECG 03/11/2022 11:21:47 No significant changes Electronically Signed On 03-11-2022 20:37:20 BUSINESS PERFORMANCE MANAGER by Claudia Nicole M.D. [id number]
[2022-03-11] MEDS: morphine 4 mg/mL SDV 1 mL 2 MG IVP (12:48)
[2022-03-11 14:24] LABS: Troponin 5 2HR Delta 0 ABS# (0-10)
== END 2022-03-11 13:57 | disposition home or self-care (01) ==
PROVIDERS: Emergency Provider Physician Assistant; PCP Family Medicine
DX: R55 Syncope and collapse (principal); I10 Essential (primary) hypertension; E78.5 Hyperlipidemia, unspecified; Z87.891 Personal history of nicotine dependence
CPT/HCPCS: 36415; 70450; 70486; 71045; 80053; 84484; 85025; 93005; 96374; 96375; 99285; J2270; J2405

== ENCOUNTER 2022-04-17 04:24 | Emergency (ER) | payer MEDICAID, SELFPAY ==
[2022-04-17 04:28] VITALS: BP 138/98; PULSE 114; RESP 22; TEMP 36.4; O2SAT 98; BMI 29.6
--- NOTE | 2022-04-17 04:33 | CTR_ITS ---
PROCEDURE INFORMATION: Exam: CT Abdomen And Pelvis With Contrast Exam date and time: 04/17/2022 5:01 AM Age: 36 years old Clinical indication: Abdominal pain; Generalized; Prior surgery; Surgery type: gastric surgery. Patient HX: C/O diffuse abd pain with diarrhea. TECHNIQUE: Imaging protocol: Computed tomography of the abdomen and pelvis with contrast. Radiation optimization: All CT scans at this facility use at least one of these dose optimization techniques: automated exposure control; mA and/or kV adjustment per patient size (includes targeted exams where dose is matched to clinical indication); or iterative reconstruction. Contrast material: OMNI 350; Contrast volume: 100 ml; Contrast route: INTRAVENOUS (IV); Other protocol: This patient has received 5 known CTs and 0 known cardiac nuclear medicine studies in the 12 months prior to the current study. COMPARISON: CT kidney stone [id number] 06/09/2021 9:39 AM RADIATION DOSE METRICS: Total DLP (mGy-cm): 688.43 FINDINGS: Lungs: Lung bases are clear. Liver: The liver is normal. Gallbladder and bile ducts: The gallbladder is normal. There is no biliary dilation. Pancreas: The pancreas is unremarkable. Spleen: The spleen is unremarkable. Adrenal glands: The adrenal glands are unremarkable. Kidneys and ureters: The kidneys are unremarkable. No hydronephrosis or stones. No ureteral dilation. Stomach and bowel: The stomach is unremarkable. The the duodenum is unremarkable. There are long segments of fluid distended small bowel with short intervening segments of decompressed small bowel. For example, see axial series 3 image 56 through 60. There is a long segment of decompressed terminal ileum. The There is no mucosal hyperemia or perienteric edema. No mucosal thickening. The colon is predominantly fluid and gas filled and is nondistended. No sign of colonic inflammation. Appendix: The appendix is normal. Intraperitoneal space: Unremarkable. No free air. No significant fluid collection. Vasculature: The abdominal aorta is normal. There is no aneurysm or dissection. The portal, splenic and superior mesenteric veins are patent. Lymph nodes: There is no lymphadenopathy in the retroperitoneum, mesentery, pelvis or inguinal regions. Urinary bladder: The urinary bladder is unremarkable. Reproductive: The prostate and seminal vesicles are unremarkable. Bones/joints: Bones are unremarkable. Soft tissues: The abdominal wall is intact. CT/CT abdomen pelvis w con* [id number] IMPRESSION: Intermittently fluid distended small bowel without other evidence of inflammation. Probable mild enteritis with ileus. Partial obstruction in the distal small bowel cannot be unequivocally excluded.
--- NOTE | 2022-04-17 04:33 | ED_ITS ---
Documented by User: Jon Pickett MD 04/17/22 04:41 HPI - Abdominal Pain General: Chief Complaint: Abdominal Pain Stated Complaint: abd pain Time Seen by Provider: 04/17/22 04:27 Source: patient Mode of arrival: ambulatory Limitations: no limitations History of Present Illness: 36-year-old male he states has been having diffuse abdominal pain since yesterday. He states the pain has been cramping in nature across his abdomen he rates his pain an 8 out of 10 denies any surgical history denies any worsening proving factors he has had some diarrhea denies any vomiting denies any chest pain denies any radiation of his pain. Associated Symptoms: Reports diarrhea; Denies chills, dysuria and fever(s) Review of Systems Const: Denies: fever(s), chills, body aches or change in appetite Eyes: Denies: blurry vision or eye discomfort ENMT: Denies: throat pain or dental pain Card: Denies: chest pain Resp: Denies: dyspnea GI: Reports: abdominal pain and diarrhea : Denies: dysuria Musc: Denies: neck pain or back pain Skin/Breast: Denies: rash Neuro: Denies: headache(s) Psych: Denies: depression Donnie/Lymph: Denies: easy bruising All/Imm: Denies: urticaria PFSH ED PFSH: Medical History Cardiomyopathy Cardiopulmonary arrest HTN (hypertension) Hyperlipidemia Psychiatric care Surgical History H/O coronary angiogram History of surgery Stomach surgery as a infant Family History Father CAD (coronary artery disease) Myocardial infarction Family/Other Myocardial infarction Stroke CAD (coronary artery disease) Grandfather Stroke Denies family history of Diabetes Social History Smoking and tobacco status: former smoker Alcohol intake: current Alcohol intake frequency: holidays/special occasions only Lives independently: Yes Household members: spouse Marital status: Number of children: 4 Physical Exam Const: COMMON NORMALS: no acute distress, patient oriented x3 and healthy appearing HENMT: COMMON NORMALS: normocephalic and atraumatic HEAD & SCALP: normocephalic and atraumatic Eye: COMMON NORMALS: Equal, round and reactive pupils present and EOMs intact bilaterally PUPIL: Yes Equal, round and reactive pupils present Neck/C-Spine: COMMON NORMALS: full ROM and supple Chest: COMMONS NORMALS: normal inspection of the chest and normal palpation of entire chest wall Resp: COMMON NORMALS: normal respiratory effort, No retractions, No use of accessory muscles and clear to auscultation bilaterally AUSCULTATION: clear to auscultation bilaterally Cardio: COMMON NORMALS: regular rate, regular rhythm and No murmurs present (Cardio) RATE: regular rate RHYTHM: regular rhythm GI: COMMON NORMALS: Normal to inspection, nondistended, normoactive bowel sounds present, Soft to palpation and no masses PALPATION: Yes Soft to palpation OTHER: diffuse tenderness Extremity: COMMON NORMALS: normal to inspection and full ROM Neuro: COMMON NORMALS: patient oriented x3, moves all extremities and no focal motor deficits Psych: COMMON NORMALS: mental status grossly normal, Normal thought process present and cooperative THOUGHT PROCESS: Normal thought process present Skin: COMMON NORMALS: no rashes or lesions noted and no wounds GENERAL SKIN EXAM: no rashes or lesions noted Course Vital Signs: Vital signs: Vital Signs Temperature 97.6 F 04/17/22 04:28 Pulse Rate 78 04/17/22 05:21 Respiratory Rate 16 04/17/22 05:21 Blood Pressure 144/96 04/17/22 05:21 Pulse Oximetry 96 04/17/22 05:21 Oxygen Delivery Me thod 04/17/22 05:21 MDM - Abdominal Pain Lab Data 04/17/22 04:40 04/17/22 04:40 Labs/Radiology: Radiology Impressions Abdomen/Pelvis CT 04/17/22 04:33 IMPRESSION: Intermittently fluid distended small bowel without other evidence of inflammation. Probable mild enteritis with ileus. Partial obstruction in the distal small bowel cannot be unequivocally excluded. Laboratory Results WBC 9.6 10^3/uL (4.0-10.0) 04/17/22 04:40 RBC 5.84 10^6/uL (4.1-5.3) H 04/17/22 04:40 Hgb 16.8 g/dL (11.7-16.6) H 04/17/22 04:40 Hct 52.1 % (42.0-52.0) H 04/17/22 04:40 MCV 89.2 fl (80-94) 04/17/22 04:40 MCH 28.8 pg (28.0-34.0) 04/17/22 04:40 MCHC 32.2 g/dL (30.0-36.0) 04/17/22 04:40 RDW 13.6 % (12.1-15.1) 04/17/22 04:40 Plt Count 338 10^3/cmm (130-400) 04/17/22 04:40 MPV 10.8 fL (7.4-10.4) H 04/17/22 04:40 Neut % (Auto) 70.0 % 04/17/22 04:40 Lymph % (Auto) 17.9 % 04/17/22 04:40 Anderson % (Auto) 6.5 % 04/17/22 04:40 Eos % (Auto) 4.8 % 04/17/22 04:40 Baso % (Auto) 0.4 % 04/17/22 04:40 Neut # (Auto) 6.72 10^3/uL (1.8-7.7) 04/17/22 04:40 Lymph # (Auto) 1.7 10^3/uL (0.8-4.8) 04/17/22 04:40 Anderson # (Auto) 0.6 10^3/uL (0.2-0.9) 04/17/22 04:40 Eos # (Auto) 0.5 10^3/uL (0.0-0.8) 04/17/22 04:40 Baso # (Auto) 0.0 10^3/uL (0.0-0.1) 04/17/22 04:40 Nucleated RBC % (auto) 0 % 04/17/22 04:40 Nucleated RBCs # 0.0 /100WBC 04/17/22 04:40 Sodium 142 mmol/L (136-145) 04/17/22 04:40 Potassium 4.5 mmol/L (3.5-5.1) 04/17/22 04:40 Chloride 102 mmol/L (98-107) 04/17/22 04:40 Carbon Dioxide 27 mmol/L (22-29) 04/17/22 04:40 Anion Gap 17.5 (5-19) 04/17/22 04:40 BUN 8 mg/dL (6-20) 04/17/22 04:40 Creatinine 1.0 mg/dL (0.7-1.2) 04/17/22 04:40 GFR Calculation 83.6 mL/min (90-130) L 04/17/22 04:40 Glucose 137 mg/dL (65-115) H 04/17/22 04:40 Calculated Osmolality 294 mOsm/kg (285-295) 04/17/22 04:40 Calcium 9.1 mg/dL (8.5-10.5) 04/17/22 04:40 Total Bilirubin 0.4 mg/dL (0.15-1.2) 04/17/22 04:40 AST 30 U/L (0-40) 04/17/22 04:40 ALT 36 U/L (0-41) 04/17/22 04:40 Alkaline Phosphatase 73 U/L (40-130) 04/17/22 04:40 Total Protein 7.8 g/dL (6.6-8.7) 04/17/22 04:40 Albumin 5.1 g/dL (3.5-5.2) 04/17/22 04:40 Globulin 2.7 g/dL (1.3-4.6) 04/17/22 04:40 Lipase 17 U/L (13-60) 04/17/22 04:40 Discharge Plan Discharge Patient Disposition: Home Clinical Impression: Gastroenteritis Condition: Stable Prescriptions: New promethazine 25 mg tablet 25 mg PO Q6H PRN (Reason: nausea and vomiting) Qty: 20 0RF Discharge Orders: Discharge ED (Routine); Ordered 04/17/22 Ordered By: Benigno Manzo Referrals: Bunny Parry MD [Primary Care Provider] - Discharge Diet: Clear Liquid Discharge Activity: Increase activity as tolerated Patient Instructions: Opioid Safety, Pain Management Activity Restrictions/Additional Instructions: You were seen today for abdominal pain with nausea and vomiting. Your white count was normal CT showed signs of enteritis. Abdominal exam did not show signs of bowel obstruction at this time. Recommend that you maintain a clear liquid diet for the next 24 to 48 hours and advance as tolerated. You can use promethazine as needed for nausea and vomiting. Coding Level of Care Code ED Design Engineering Technician for Chg Fwd Documented by User: Benigno Manzo DO 04/17/22 06:23 HPI - Abdominal Pain General: Chief Complaint: Abdominal Pain Stated Complaint: abd pain Time Seen by Provider: 04/17/22 04:27 PFSH ED PFSH: Medical History Cardiomyopathy Cardiopulmonary arrest HTN (hypertension) Hyperlipidemia Psychiatric care Surgical History H/O coronary angiogram History of surgery Stomach surgery as a infant Family History Father CAD (coronary artery disease) Myocardial infarction Family/Other Myocardial infarction Stroke CAD (coronary artery disease) Grandfather Stroke Denies family history of Diabetes Social History Smoking and tobacco status: former smoker Alcohol intake: current Alcohol intake frequency: holidays/special occasions only Lives independently: Yes Household members: spouse Marital status: Number of children: 4 Course Vital Signs: Vital signs: Vital Signs Temperature 97.6 F 04/17/22 04:28 Pulse Rate 78 04/17/22 05:21 Respiratory Rate 16 04/17/22 05:21 Blood Pressure 144/96 04/17/22 05:21 Pulse Oximetry 96 04/17/22 05:21 Oxygen Delivery Me thod 04/17/22 05:21 MDM - Abdominal Pain Medical Decision Making Patient care handoff received from Dr. Pickett continuation of ED evaluation. I personally saw and evaluated patient and reperformed bernard portions of E/M. Labs and imaging reviewed CT shows enteritis. On repeat exam patient has no significant tenderness bowel sounds positive. There is no tympany on percussion. He is continue to have bowel movements clinically does not appear to have a bowel obstruction suspect more likely enteritis is outlined within the CT note. We will discharge patient home clear liquid diet antiemetics follow-up has any worsening problems. Medical Records I reviewed the patient's medical records. Lab Data I reviewed the patient's lab results. 04/17/22 04:40 04/17/22 04:40 Labs/Radiology: Radiology Impressions Abdomen/Pelvis CT 04/17/22 04:33 IMPRESSION: Intermittently fluid distended small bowel without other evidence of inflammation. Probable mild enteritis with ileus. Partial obstruction in the distal small bowel cannot be unequivocally excluded. Laboratory Results WBC 9.6 10^3/uL (4.0-10.0) 04/17/22 04:40 RBC 5.84 10^6/uL (4.1-5.3) H 04/17/22 04:40 Hgb 16.8 g/dL (11.7-16.6) H 04/17/22 04:40 Hct 52.1 % (42.0-52.0) H 04/17/22 04:40 MCV 89.2 fl (80-94) 04/17/22 04:40 MCH 28.8 pg (28.0-34.0) 04/17/22 04:40 MCHC 32.2 g/dL (30.0-36.0) 04/17/22 04:40 RDW 13.6 % (12.1-15.1) 04/17/22 04:40 Plt Count 338 10^3/cmm (130-400) 04/17/22 04:40 MPV 10.8 fL (7.4-10.4) H 04/17/22 04:40 Neut % (Auto) 70.0 % 04/17/22 04:40 Lymph % (Auto) 17.9 % 04/17/22 04:40 Anderson % (Auto) 6.5 % 04/17/22 04:40 Eos % (Auto) 4.8 % 04/17/22 04:40 Baso % (Auto) 0.4 % 04/17/22 04:40 Neut # (Auto) 6.72 10^3/uL (1.8-7.7) 04/17/22 04:40 Lymph # (Auto) 1.7 10^3/uL (0.8-4.8) 04/17/22 04:40 Anderson # (Auto) 0.6 10^3/uL (0.2-0.9) 04/17/22 04:40 Eos # (Auto) 0.5 10^3/uL (0.0-0.8) 04/17/22 04:40 Baso # (Auto) 0.0 10^3/uL (0.0-0.1) 04/17/22 04:40 Nucleated RBC % (auto) 0 % 04/17/22 04:40 Nucleated RBCs # 0.0 /100WBC 04/17/22 04:40 Sodium 142 mmol/L (136-145) 04/17/22 04:40 Potassium 4.5 mmol/L (3.5-5.1) 04/17/22 04:40 Chloride 102 mmol/L (98-107) 04/17/22 04:40 Carbon Dioxide 27 mmol/L (22-29) 04/17/22 04:40 Anion Gap 17.5 (5-19) 04/17/22 04:40 BUN 8 mg/dL (6-20) 04/17/22 04:40 Creatinine 1.0 mg/dL (0.7-1.2) 04/17/22 04:40 GFR Calculation 83.6 mL/min (90-130) L 04/17/22 04:40 Glucose 137 mg/dL (65-115) H 04/17/22 04:40 Calculated Osmolality 294 mOsm/kg (285-295) 04/17/22 04:40 Calcium 9.1 mg/dL (8.5-10.5) 04/17/22 04:40 Total Bilirubin 0.4 mg/dL (0.15-1.2) 04/17/22 04:40 AST 30 U/L (0-40) 04/17/22 04:40 ALT 36 U/L (0-41) 04/17/22 04:40 Alkaline Phosphatase 73 U/L (40-130) 04/17/22 04:40 Total Protein 7.8 g/dL (6.6-8.7) 04/17/22 04:40 Albumin 5.1 g/dL (3.5-5.2) 04/17/22 04:40 Globulin 2.7 g/dL (1.3-4.6) 04/17/22 04:40 Lipase 17 U/L (13-60) 04/17/22 04:40 Discharge Plan Discharge Patient Disposition: Home Clinical Impression: Gastroenteritis Condition: Stable Prescriptions: New promethazine 25 mg tablet 25 mg PO Q6H PRN (Reason: nausea and vomiting) Qty: 20 0RF Discharge Orders: Discharge ED (Routine); Ordered 04/17/22 Ordered By: Benigno Manzo Referrals: Bunny Parry MD [Primary Care Provider] - Discharge Diet: Clear Liquid Discharge Activity: Increase activity as tolerated Patient Instructions: Opioid Safety, Pain Management Activity Restrictions/Additional Instructions: You were seen today for abdominal pain with nausea and vomiting. Your white count was normal CT showed signs of enteritis. Abdominal exam did not show signs of bowel obstruction at this time. Recommend that you maintain a clear liquid diet for the next 24 to 48 hours and advance as tolerated. You can use p romethazine as needed for nausea and vomiting. Coding Level of Care Code ED Design Engineering Technician for Kelly Alcantara
[2022-04-17 04:48] LABS: Basophils % 0.4 %; Eosinophils # 0.5 10^3/uL (0.0-0.8); Eosinophils % 4.8 %; Hematocrit 52.1 % (42.0-52.0); Hemoglobin 16.8 g/dL (11.7-16.6); Lymphocytes # 1.7 10^3/uL (0.8-4.8); Lymphocytes % 17.9 %; Mean Corpuscular HGB Conc 32.2 g/dL (30.0-36.0); Mean Corpuscular Hemoglobin 28.8 pg (28.0-34.0); Mean Corpuscular Volume 89.2 fl (80-94); Mean Platelet Volume 10.8 fL (7.4-10.4); Monocytes # 0.6 10^3/uL (0.2-0.9); Monocytes % 6.5 %; Neutrophils # 6.72 10^3/uL (1.8-7.7); Nucleated Red Blood Cells % 0 %; Platelet Count 338 10^3/cmm (130-400); Red Blood Count 5.84 10^6/uL (4.1-5.3); Red Cell Distribution Width 13.6 % (12.1-15.1); White Blood Count 9.6 10^3/uL (4.0-10.0)
[2022-04-17] MEDS: ondansetron 2 mg/ML SDV 2 mL 4 MG IVP (04:48)
[2022-04-17 04:50] VITALS: RESP 18; O2SAT 97
[2022-04-17] MEDS: sodium chloride 0.9% 1,000 ML 999 ML IV (04:50)
[2022-04-17] MEDS: morphine 4 mg/mL SDV 1 mL IVP (04:50)
[2022-04-17] MEDS: iohexol 350 mg/mL 500 mL Btl (per mL) IV (05:02)
[2022-04-17 05:04] LABS: Alanine Aminotransferase 36 U/L (0-41); Albumin Level 5.1 g/dL (3.5-5.2); Alkaline Phosphatase 73 U/L (40-130); Anion Gap 17.5 (5-19); Aspartate Amino Transferase 30 U/L (0-40); Blood Urea Nitrogen 8 mg/dL (6-20); Calcium 9.1 mg/dL (8.5-10.5); Carbon Dioxide 27 mmol/L (22-29); Chloride 102 mmol/L (98-107); Globulin 2.7 g/dL (1.3-4.6); Glomerular Filtration Rate 83.6 mL/min (90-130); Glucose 137 mg/dL (65-115); Lipase 17 U/L (13-60); Osmolality Calculated 294 mOsm/kg (285-295); Potassium 4.5 mmol/L (3.5-5.1); Sodium 142 mmol/L (136-145); Total Bilirubin 0.4 mg/dL (0.15-1.2); Total Protein 7.8 g/dL (6.6-8.7)
[2022-04-17 05:21] VITALS: BP 144/96; PULSE 78; RESP 16; O2SAT 96
[2022-04-17] MEDS: HYDROmorphone 1 mg/mL INJ 1 mL IVP (05:34)
[2022-04-17 06:34] VITALS: BP 140/80; PULSE 80; RESP 14; O2SAT 97
== END 2022-04-17 06:36 | disposition home or self-care (01) ==
PROVIDERS: Emergency Medicine; Emergency Provider Family Medicine; PCP Family Medicine
DX: K52.9 Noninfective gastroenteritis and colitis, unspecified (principal)
CPT/HCPCS: 74177; 80053; 83690; 85025; 96361; 96374; 96375; 99285; J1170; J2270; J2405; J7030; Q9967

== ENCOUNTER → 2022-05-20 12:29 | Outpatient (BNVA) | payer MEDICAID, SELFPAY | PROVIDERS: PCP Family Medicine; Visit Provider Registered Nurse Neonatal Intensive Care | DX: S59.902A Unspecified injury of left elbow, initial encounter (principal); X58.XXXA Exposure to other specified factors, initial encounter | CPT/HCPCS: 73080 ==

== ENCOUNTER 2022-07-12 00:01 | Emergency (ER) | payer MEDICAID, SELFPAY ==
[2022-07-12] VITALS (7 sets, daily range): BP systolic 138–168; BP diastolic 91–109; PULSE 54–85; RESP 15–35; TEMP 36.8; O2SAT 95–100; BMI 29.0
--- NOTE | 2022-07-12 00:06 | XRR_ITS ---
PROCEDURE INFORMATION: Exam: XR Chest Exam date and time: 07/12/2022 12:21 AM Age: 37 years old Clinical indication: Pain; Chest pressure; Additional info: Cp TECHNIQUE: Imaging protocol: Radiologic exam of the chest. Views: 1 view. COMPARISON: CR XR chest 1V portable [id number] 03/11/2022 10:56 AM FINDINGS: Lungs: Unremarkable. No consolidation. Pleural spaces: Unremarkable. No pleural effusion. No pneumothorax. Heart/Mediastinum: Unremarkable. No cardiomegaly. Bones/joints: Unremarkable. XR/XR chest 1V portable [id number] IMPRESSION: No acute findings. Stable appearance of the chest compared with 03/11/2022.
--- NOTE | 2022-07-12 00:06 | ECG_ITS ---
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 Measurements Intervals [place] Rate: 78 P: 45 IA: 162 QRS: 2 QRSD: 105 T: 30 QT: 358 QTc: 409 Interpretive Statements SINUS RHYTHM INCOMPLETE RIGHT BUNDLE BRANCH BLOCK [90+ ms QRS DURATION, TERMINAL R IN V1/V2, 40+ ms S IN I/aVL/V4/V5/V6] NONSPECIFIC T-WAVE ABNORMALITY Compared to ECG 03/11/2022 12:35:35 Incomplete right bundle-branch block now present T-wave abnormality now present Electronically Signed On 07-12-2022 11:57:23 CDT by Freddy Romero M.D. [id number]
--- NOTE | 2022-07-12 00:26 | W.ED.CHESTPA ---
HPI - Chest Pain General: Chief Complaint: Chest Pain Stated Complaint: Chest Pains Time Seen by Provider: 07/12/22 00:06 Source: patient Mode of arrival: ambulatory Limitations: no limitations History of Present Illness: 37-year-old male states he has been having intermittent chest pains over the last day. States been a pressure type pain in his left chest he rates it a 3 out of 10 currently denies any diaphoresis or dyspnea he states he has had a history of blockage in his heart but he never had stents placed he has had caths. He denies any fever denies any cough denies any worsening improving factors. Associated symptoms: Deny abdominal pain, dyspnea, fever(s), nausea or vomiting Review of Systems Const: Denies: fever(s), chills or body aches ENMT: Denies: throat pain or dental pain Card: Reports: chest pain Resp: Denies: dyspnea GI: Denies: abdominal pain, nausea, vomiting or diarrhea Musc: Denies: neck pain or back pain Skin/Breast: Denies: rash Neuro: Denies: headache(s) PFSH ED PFSH: Medical History Cardiomyopathy Cardiopulmonary arrest HTN (hypertension) Hyperlipidemia Psychiatric care Surgical History H/O coronary angiogram History of surgery Stomach surgery as a Family History Father CAD (coronary artery disease) Myocardial infarction Family/Other Myocardial infarction Stroke CAD (coronary artery disease) Grandfather Stroke Denies family history of Diabetes Social History Smoking and tobacco status: former smoker Alcohol intake: current Alcohol intake frequency: holidays/special occasions only Substance/Drug Use: never Lives independently: Yes Household members: spouse Marital status: Number of children: 4 Physical Exam Const: COMMON NORMALS: no acute distress and patient oriented x3; negative for healthy appearing HENMT: COMMON NORMALS: normocephalic and atraumatic HEAD & SCALP: normocephalic and atraumatic Eye: COMMON NORMALS: conjunctivae normal CONJUNCTIVA: Yes conjunctivae normal Neck/C-Spine: COMMON NORMALS: full ROM and supple Chest: COMMONS NORMALS: normal inspection of the chest and normal palpation of entire chest wall Resp: COMMON NORMALS: normal respiratory effort, No retractions, No use of accessory muscles and clear to auscultation bilaterally AUSCULTATION: clear to auscultation bilaterally Cardio: COMMON NORMALS: regular rate, regular rhythm and No murmurs present (Cardio) RATE: regular rate RHYTHM: regular rhythm GI: COMMON NORMALS: Normal to inspection, nondistended, normoactive bowel sounds present, Soft to palpation, non-tender and no masses PALPATION: Yes Soft to palpation Extremity: COMMON NORMALS: normal to inspection and full ROM Neuro: COMMON NORMALS: patient oriented x3, moves all extremities and no focal motor deficits Psych: COMMON NORMALS: mental status grossly normal, Normal thought process present and cooperative THOUGHT PROCESS: Normal thought process present Skin: COMMON NORMALS: no rashes or lesions noted and no wounds GENERAL SKIN EXAM: no rashes or lesions noted Course Vital Signs: Vital signs: Vital Signs Temperature 98.3 F 07/12/22 00:11 Pulse Rate 54 L 07/12/22 02:54 Respiratory Rate 24 H 07/12/22 02:54 Blood Pressure 160/109 07/12/22 02:54 Pulse Oximetry 100 07/12/22 02:54 Oxygen Delivery Me thod Room Air 07/12/22 00:39 MDM - Chest Pain Medical Decision Making Patient presents chest pain is atypical in nature troponins here are normal no signs of acute coronary syndrome no signs of dissection or pulm embolism he is stable for discharge she is to follow PCP and return if worsening. Medical Records I reviewed the patient's medical records. Lab Data I reviewed the patient's lab results. 07/12/22 00:32 07/12/22 00:32 Laboratory Results WBC 7.7 10^3/uL (4.0-10.0) 07/12/22 00:32 RBC 5.18 10^6/uL (4.1-5.3) 07/12/22 00:32 Hgb 15.6 g/dL (11.7-16.6) 07/12/22 00:32 Hct 45.8 % (42.0-52.0) 07/12/22 00:32 MCV 88.4 fl (80-94) 07/12/22 00:32 MCH 30.1 pg (28.0-34.0) 07/12/22 00:32 MCHC 34.1 g/dL (30.0-36.0) 07/12/22 00:32 RDW 12.2 % (12.1-15.1) 07/12/22 00:32 Plt Count 290 10^3/cmm (130-400) 07/12/22 00:32 MPV 11.3 fL (7.4-10.4) H 07/12/22 00:32 Neut % (Auto) 58.4 % 07/12/22 00:32 Lymph % (Auto) 27.7 % 07/12/22 00:32 Forrest % (Auto) 7.3 % 07/12/22 00:32 Eos % (Auto) 6.0 % 07/12/22 00:32 Baso % (Auto) 0.5 % 07/12/22 00:32 Neut # (Auto) 4.50 10^3/uL (1.8-7.7) 07/12/22 00:32 Lymph # (Auto) 2.1 10^3/uL (0.8-4.8) 07/12/22 00:32 Forrest # (Auto) 0.6 10^3/uL (0.2-0.9) 07/12/22 00:32 Eos # (Auto) 0.5 10^3/uL (0.0-0.8) 07/12/22 00:32 Baso # (Auto) 0.0 10^3/uL (0.0-0.1) 07/12/22 00:32 Nucleated RBC % (auto) 0 % 07/12/22 00:32 Nucleated RBCs # 0.0 /100WBC 07/12/22 00:32 Sodium 137 mmol/L (136-145) 07/12/22 00:32 Potassium 3.6 mmol/L (3.5-5.1) 07/12/22 00:32 Chloride 100 mmol/L (98-107) 07/12/22 00:32 Carbon Dioxide 23 mmol/L (22-29) 07/12/22 00:32 Anion Gap 17.6 (5-19) 07/12/22 00:32 BUN 8 mg/dL (6-20) 07/12/22 00:32 Creatinine 0.8 mg/dL (0.7-1.2) 07/12/22 00:32 GFR Calculation 107.6 mL/min (90-130) 07/12/22 00:32 Glucose 138 mg/dL (65-115) H 07/12/22 00:32 Calculated Osmolality 285 mOsm/kg (285-295) 07/12/22 00:32 Calcium 8.7 mg/dL (8.5-10.5) 07/12/22 00:32 Total Bilirubin 0.3 mg/dL (0.15-1.2) 07/12/22 00:32 AST 19 U/L (0-40) 07/12/22 00:32 ALT 23 U/L (0-41) 07/12/22 00:32 Alkaline Phosphatase 62 U/L (40-130) 07/12/22 00:32 Troponin T Baseline 6 ng/L (0-15) 07/12/22 00:32 Troponin T 120 Minute 6.00 ng/L (0-15) 07/12/22 02:16 Total Protein 6.8 g/dL (6.6-8.7) 07/12/22 00:32 Albumin 4.5 g/dL (3.5-5.2) 07/12/22 00:32 Globulin 2.3 g/dL (1.3-4.6) 07/12/22 00:32 Imaging Data CXR: I personally reviewed and interpreted this imaging study as follows: My impression: no acute abnormality EKG Data EKG 1: I personally reviewed and interpreted this EKG as follows: EKG interpretation date: 07/12/22 EKG interpretation time: 00:13 Interpretation: nsr hr [address] or t wave abnormalities qrs 105 qtc 391 EKG 2: I personally reviewed and interpreted this EKG as follows: EKG interpretation date: 07/12/22 EKG interpretation time: 00:25 Interpretation: sinus pacheco hr [address] or t wave abnormalities qrs 110 qtc 415 Discharge Plan Discharge Patient Disposition: Home Clinical Impression: Chest pain Condition: Stable Prescriptions: No Action prednisone 20 mg tablet 40 mg PO DAILY 5 Days Qty: 10 0RF Discharge Orders: Discharge ED (Routine); Ordered 07/12/22 Ordered By: Jon Pickett Referrals: Bunny Prary MD [Primary Care Provider] - 1-3 days Discharge Diet: Advance as tolerated Discharge Activity: Resume usual activity Patient Instructions: Chest Pain (ED) Coding Level of Care Code ED Seamless Tube Roller for Kelly Alcantara
[2022-07-12] MEDS: aspirin 81 mg Chew Tablet 324 MG PO (00:27)
[2022-07-12] MEDS: nitroglycerin 0.4 mg sublingual Tablet SUBLINGUAL (00:38)
[2022-07-12 00:40] LABS: Basophils % 0.5 %; Eosinophils # 0.5 10^3/uL (0.0-0.8); Hematocrit 45.8 % (42.0-52.0); Hemoglobin 15.6 g/dL (11.7-16.6); Lymphocytes # 2.1 10^3/uL (0.8-4.8); Lymphocytes % 27.7 %; Mean Corpuscular HGB Conc 34.1 g/dL (30.0-36.0); Mean Corpuscular Hemoglobin 30.1 pg (28.0-34.0); Mean Corpuscular Volume 88.4 fl (80-94); Mean Platelet Volume 11.3 fL (7.4-10.4); Monocytes # 0.6 10^3/uL (0.2-0.9); Monocytes % 7.3 %; Neutrophils % 58.4 %; Nucleated Red Blood Cells % 0 %; Platelet Count 290 10^3/cmm (130-400); Red Blood Count 5.18 10^6/uL (4.1-5.3); Red Cell Distribution Width 12.2 % (12.1-15.1); White Blood Count 7.7 10^3/uL (4.0-10.0)
[2022-07-12 00:55] LABS: Troponin(5th) Baseline 6 ng/L (0-15)
[2022-07-12 00:57] LABS: Alanine Aminotransferase 23 U/L (0-41); Albumin Level 4.5 g/dL (3.5-5.2); Alkaline Phosphatase 62 U/L (40-130); Anion Gap 17.6 (5-19); Aspartate Amino Transferase 19 U/L (0-40); Blood Urea Nitrogen 8 mg/dL (6-20); Calcium 8.7 mg/dL (8.5-10.5); Carbon Dioxide 23 mmol/L (22-29); Chloride 100 mmol/L (98-107); Globulin 2.3 g/dL (1.3-4.6); Glomerular Filtration Rate 107.6 mL/min (90-130); Glucose 138 mg/dL (65-115); Osmolality Calculated 285 mOsm/kg (285-295); Potassium 3.6 mmol/L (3.5-5.1); Sodium 137 mmol/L (136-145); Total Bilirubin 0.3 mg/dL (0.15-1.2); Total Protein 6.8 g/dL (6.6-8.7)
[2022-07-12] MEDS: morphine 4 mg/mL SDV 1 mL IVP (01:05)
[2022-07-12] MEDS: ondansetron 2 mg/ML SDV 2 mL 4 MG IVP (01:05)
--- NOTE | 2022-07-12 02:06 | ECG_ITS ---
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 Measurements Intervals Fine Rate: 58 P: 34 [place]: 161 QRS: 9 QRSD: 110 T: 19 QT: 418 QTc: 413 Interpretive Statements SINUS BRADYCARDIA POSSIBLE RIGHT VENTRICULAR CONDUCTION DELAY [RSR (QR) IN V1/V2] Compared to ECG 07/12/2022 00:13:23 Sinus rhythm no longer present Incomplete right bundle-branch block no longer present T-wave abnormality no longer present Electronically Signed On 07-12-2022 12:00:01 CDT by Freddy Romero M.D. [id number]
[2022-07-12] MEDS: HYDROmorphone 1 mg/mL INJ 1 mL IVP (02:52)
[2022-07-12 03:33] LABS: Troponin 5 2HR Delta 0 ABS# (0-10)
== END 2022-07-12 03:18 | disposition home or self-care (01) ==
PROVIDERS: Emergency Provider Emergency Medicine; PCP Family Medicine
DX: R07.9 Chest pain, unspecified (principal); I10 Essential (primary) hypertension; E78.5 Hyperlipidemia, unspecified; Z87.891 Personal history of nicotine dependence
CPT/HCPCS: 71045; 80053; 84484; 85025; 93005; 96374; 96375; 99285; J1170; J2270; J2405

== ENCOUNTER 2022-09-02 17:35 | Emergency (ER) | payer MEDICAID, SELFPAY ==
[2022-09-02] VITALS (7 sets, daily range): BP systolic 128–159; BP diastolic 91–104; PULSE 64–83; RESP 14–20; TEMP 36.6; O2SAT 94–100; BMI 29.0
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
--- NOTE | 2022-09-02 19:31 | XRR_ITS ---
PROCEDURE INFORMATION: Exam: XR Chest Exam date and time: 09/02/2022 7:40 PM Age: 37 years old Clinical indication: Pain; Chest pressure; Additional info: L chest/arm pain TECHNIQUE: Imaging protocol: Radiologic exam of the chest. Views: 1 view. COMPARISON: CR XR chest 1V portable [id number] 07/12/2022 12:21 AM FINDINGS: Lungs: Unremarkable. No consolidation. Pleural spaces: Unremarkable. No pleural effusion. No pneumothorax. Heart/Mediastinum: Unremarkable. No cardiomegaly. Bones/joints: Visualized osseous structures show no acute abnormality. Soft tissues: Overlying rounded metallic density about the upper right chest is unchanged with prior exam and likely external. Monitor leads are seen. XR/XR chest 1V portable [id number] IMPRESSION: No acute cardiopulmonary abnormality.
[2022-09-02 19:47] LABS: Basophils % 0.5 %; Eosinophils # 0.4 10^3/uL (0.0-0.8); Eosinophils % 5.9 %; Hematocrit 46.9 % (42.0-52.0); Hemoglobin 15.8 g/dL (11.7-16.6); Lymphocytes # 1.8 10^3/uL (0.8-4.8); Lymphocytes % 28.8 %; Mean Corpuscular HGB Conc 33.7 g/dL (30.0-36.0); Mean Corpuscular Hemoglobin 29.8 pg (28.0-34.0); Mean Corpuscular Volume 88.5 fl (80-94); Mean Platelet Volume 11.4 fL (7.4-10.4); Monocytes # 0.5 10^3/uL (0.2-0.9); Monocytes % 8.1 %; Neutrophils # 3.42 10^3/uL (1.8-7.7); Neutrophils % 56.4 %; Nucleated Red Blood Cells % 0 %; Platelet Count 266 10^3/cmm (130-400); Red Cell Distribution Width 12.1 % (12.1-15.1); White Blood Count 6.1 10^3/uL (4.0-10.0)
[2022-09-02] MEDS: morphine 4 mg/mL SDV 1 mL IVP (19:53)
[2022-09-02] MEDS: ketorolac 30 mg/mL INJ 15 MG IVP (19:54)
[2022-09-02] MEDS: metoclopramide 5 mg/mL SDV 2 mL IVP (19:54)
[2022-09-02] MEDS: sodium chloride 0.9% 1,000 ML 999 ML IV (19:54)
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
[2022-09-02 20:14] LABS: Anion Gap 12.9 (5-19); Blood Urea Nitrogen 11 mg/dL (6-20); Calcium 9.1 mg/dL (8.5-10.5); Carbon Dioxide 26 mmol/L (22-29); Chloride 99 mmol/L (98-107); Glomerular Filtration Rate 93.9 mL/min (90-130); Glucose 75 mg/dL (65-115); Magnesium 2.4 mg/dL (1.7-2.3); Osmolality Calculated 276 mOsm/kg (285-295); Potassium 3.9 mmol/L (3.5-5.1); Sodium 134 mmol/L (136-145); Thyroid Stimulating Hormone 1.09 uIU/mL (0.27-4.20)
[2022-09-02] MEDS: iohexol 350 mg/mL 500 mL Btl (per mL) IV (20:28)
[2022-09-02] MEDS: HYDROmorphone 1 mg/mL INJ 1 mL 0.5 MG IVP (20:38)
[2022-09-02] MEDS: diazePAM 5 mg Tablet PO (21:43)
[2022-09-02] MEDS: acetaminophen 500 mg Tablet 1000 MG PO (21:43)
== END 2022-09-02 22:52 | disposition home or self-care (01) ==
PROVIDERS: Emergency Provider Emergency Medicine; PCP Family Medicine
DX: M79.641 Pain in right hand (principal); M79.604 Pain in right leg
CPT/HCPCS: 70496; 70498; 71045; 80048; 83735; 84443; 85025; 96361; 96365; 96375; 99285; J1170; J1885; J2270; J2765; J3475; J7030; Q9967

== ENCOUNTER 2022-09-09 14:40 | Emergency (ER) | payer MEDICAID, SELFPAY ==
[2022-09-09 14:45] VITALS: BP 141/87; PULSE 100; RESP 20; TEMP 36.9; BMI 29.0
[2022-09-09 16:16] VITALS: BP 148/100; O2SAT 95
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
== END 2022-09-09 16:46 | disposition home or self-care (01) ==
PROVIDERS: Emergency Provider Family Medicine; PCP Family Medicine
DX: M54.2 Cervicalgia (principal)
CPT/HCPCS: 99283

== ENCOUNTER 2022-09-20 12:18 | Emergency (ER) | payer MEDICAID, SELFPAY ==
[2022-09-20 12:21] VITALS: BP 127/79; PULSE 98; RESP 22; TEMP 36.7; O2SAT 99
--- NOTE | 2022-09-20 12:27 | W.ED.CHESTPA ---
HPI - Chest Pain General: Chief Complaint: Chest Pain Stated Complaint: chest pain. cardiac history Time Seen by Provider: 09/20/22 12:27 History of Present Illness: Mr Parson is a 37-year-old gentleman with reported cardiac history presenting the emergency department for chest pain and shortness of breath. He notes onset of symptoms this morning with severe substernal pain which is sharp and is associated shortness of breath and intermittent cough. Intensity is moderate to severe. Course has persisted. No other specific changes in health, exacerbating, or alleviating factors identified. Prehospital administered aspirin, nitro, Zofran. Onset (ago): hour(s) Onset: during rest Pain location: substernal Quality: sharp Associated symptoms: Reports dyspnea Review of Systems General: Reports: 10 or more systems reviewed and unremarkable except in HPI and below Resp: Reports: dyspnea PFSH ED PFSH: Medical History Cardiomyopathy Cardiopulmonary arrest HTN (hypertension) Hyperlipidemia Psychiatric care Surgical History H/O coronary angiogram History of surgery Stomach surgery as a infant Family History Father CAD (coronary artery disease) Myocardial infarction Family/Other Myocardial infarction Stroke CAD (coronary artery disease) Grandfather Stroke Denies family history of Diabetes Social History Smoking and tobacco status: former smoker Alcohol intake: current Alcohol intake frequency: holidays/special occasions only Substance/Drug Use: never Lives independently: Yes Household members: spouse Marital status: Number of children: 4 Physical Exam Const: COMMON NORMALS: alert GENERAL APPEARANCE: cooperative and well developed HENMT: COMMON NORMALS: normocephalic and atraumatic HEAD & SCALP: normocephalic and atraumatic THROAT: posterior oropharynx normal Eye: COMMON NORMALS: conjunctivae normal CONJUNCTIVA: Yes conjunctivae normal SCLERA: sclerae normal Neck/C-Spine: COMMON NORMALS: supple GENERAL: Yes trachea midline Resp: COMMON NORMALS: clear to auscultation bilaterally EFFORT & INSPECTION: Yes able to speak in complete sentences AUSCULTATION: clear to auscultation bilaterally Cardio: COMMON NORMALS: regular rate and regular rhythm RATE: regular rate RHYTHM: regular rhythm GI: COMMON NORMALS: Soft to palpation PALPATION: Yes Soft to palpation and No Tenderness to palpation present (GI) Extremity: GENERAL: Yes normal exam except as noted and No edema Neuro: COMMON NORMALS: moves all extremities SENSORIUM/ORIENTATION: Yes alert and No Orientation impaired Psych: COMMON NORMALS: mental status grossly normal and Normal thought process present THOUGHT PROCESS: Normal thought process present Course Vital Signs: Vital signs: Vital Signs Temperature 98.0 F 09/20/22 12:21 Pulse Rate 74 09/20/22 15:44 Respiratory Rate 14 09/20/22 15:44 Blood Pressure 128/96 09/20/22 15:44 Pulse Oximetry 97 09/20/22 15:44 Oxygen Delivery Me thod Room Air 09/20/22 12:21 MDM - Chest Pain Medical Decision Making 37-year-old gentleman presented the emergency department for chest pain and associated symptoms. Exam as above. Nontoxic. Quite uncomfortable appearing due to pain. EKG demonstrates sinus tachycardia with borderline left axis deviation, normal intervals, no STEMI. Labs notable for leukocytosis and hemoconcentration. Metabolic panel with mild dehydration. 2-hour delta troponin negative. D-dimer negative. T. bili elevated however no right upper quadrant tenderness on abdominal exam. Chest x-ray with no lobar consolidation or pneumothorax. Patient significantly improved with IV fluids and anxiolysis. Essentially feels completely back to normal and reports that it may have been an anxiety attack. He does not feel that he requires inpatient management. The results of ED evaluation were discussed with the patient including prescriptions and/or symptomatic cares (if applicable) including appropriate and responsible use, followup plan, and return precautions. The patient verbalized understanding and felt safe for discharge. Medical Records I reviewed the patient's medical records. Lab Data I reviewed the patient's lab results. 09/20/22 12:20 09/20/22 12:20 Radiology Impressions Chest X-Ray 09/20/22 12:30 IMPRESSION: Unremarkable chest radiograph. Laboratory Results WBC 14.6 10^3/uL (4.0-10.0) H 09/20/22 12:20 RBC 6.06 10^6/uL (4.1-5.3) H 09/20/22 12:20 Hgb 17.9 g/dL (11.7-16.6) H 09/20/22 12:20 Hct 54.8 % (42.0-52.0) H 09/20/22 12:20 MCV 90.4 fl (80-94) 09/20/22 12:20 MCH 29.5 pg (28.0-34.0) 09/20/22 12:20 MCHC 32.7 g/dL (30.0-36.0) 09/20/22 12:20 RDW 12.6 % (12.1-15.1) 09/20/22 12:20 Plt Count 366 10^3/cmm (130-400) 09/20/22 12:20 MPV 11.4 fL (7.4-10.4) H 09/20/22 12:20 Neut % (Auto) 82.0 % 09/20/22 12:20 Lymph % (Auto) 11.6 % 09/20/22 12:20 [place] % (Auto) 5.3 % 09/20/22 12:20 Eos % (Auto) 0.3 % 09/20/22 12:20 Baso % (Auto) 0.3 % 09/20/22 12:20 Neut # (Auto) 11.96 10^3/uL (1.8-7.7) H 09/20/22 12:20 Lymph # (Auto) 1.7 10^3/uL (0.8-4.8) 09/20/22 12:20 [place] # (Auto) 0.8 10^3/uL (0.2-0.9) 09/20/22 12:20 Eos # (Auto) 0.0 10^3/uL (0.0-0.8) 09/20/22 12:20 Baso # (Auto) 0.1 10^3/uL (0.0-0.1) 09/20/22 12:20 Nucleated RBC % (auto) 0 % 09/20/22 12:20 Nucleated RBCs # 0.0 /100WBC 09/20/22 12:20 D-Dimer <= 0.27 ug/mIFEU (0-0.59) 09/20/22 12:20 Sodium 138 mmol/L (136-145) 09/20/22 12:20 Potassium 4.2 mmol/L (3.5-5.1) 09/20/22 12:20 Chloride 97 mmol/L (98-107) L 09/20/22 12:20 Carbon Dioxide 24 mmol/L (22-29) 09/20/22 12:20 Anion Gap 21.2 (5-19) H 09/20/22 12:20 BUN 11 mg/dL (6-20) 09/20/22 12:20 Creatinine 1.0 mg/dL (0.7-1.2) 09/20/22 12:20 GFR Calculation 83.2 mL/min (90-130) L 09/20/22 12:20 Glucose 94 mg/dL (65-115) 09/20/22 12:20 Calculated Osmolality 285 mOsm/kg (285-295) 09/20/22 12:20 Calcium 9.7 mg/dL (8.5-10.5) 09/20/22 12:20 Total Bilirubin 1.4 mg/dL (0.15-1.2) H 09/20/22 12:20 AST 16 U/L (0-40) 09/20/22 12:20 ALT 30 U/L (0-41) 09/20/22 12:20 Alkaline Phosphatase 59 U/L (40-130) 09/20/22 12:20 Troponin T Baseline 6 ng/L (0-15) 09/20/22 12:20 Troponin T 120 Minute 6.00 ng/L (0-15) 09/20/22 14:31 Delta Troponin T 0 ABS# (0-10) 09/20/22 14:31 NT-Pro-B Natriuret Pep 36 pg/mL (0-125) 09/20/22 12:20 Total Protein 8.1 g/dL (6.6-8.7) 09/20/22 12:20 Albumin 5.1 g/dL (3.5-5.2) 09/20/22 12:20 Globulin 3.0 g/dL (1.3-4.6) 09/20/22 12:20 Lipase 19 U/L (13-60) 09/20/22 12:20 SARS-CoV-2 Ag (Rapid) negative (Negative) 09/20/22 13:08 Discharge Plan Discharge Patient Disposition: Home Clinical Impression: Stress, Chest pain, Dehydration Condition: Stable Prescriptions: New hydroxyzine HCl 25 mg tablet 25 mg PO Q6H PRN (Reason: anxiety) Qty: 30 0RF Discharge Orders: Discharge ED (Routine); Ordered 09/20/22 Ordered By: Mark Sylvester Referrals: Bunny Parry MD [Primary Care Provider] - Discharge Diet: Usual diet Discharge Activity: Increase activity as tolerated Patient Instructions: Chest Pain (ED), Dehydration (ED), Anxiety (ED), Opioid Safety Activity Restrictions/Additional Instructions: Thank you for visiting the emergency department. You were seen and evaluated for chest pain. The exact cause your symptoms is unclear however it does not appear to need hospitalization at this time. Please continue your plan for outpatient follow-up. You may use [id number] medications such as acetaminophen and ibuprofen for pain however please do not exceed the daily recommended dosage as listed on the packaging and please keep in mind that many namebrand medications contain the same active ingredients. Please avoid these medications if previously instructed to do so by another physician due to other underlying medical condition. I will also prescribe hydroxyzine which you can take as needed as prescribed for anxiety. Follow-up with your primary care provider. [facility] [phone] If you or someone you care for is experiencing a psychiatric emergency, please call the crisis hotline ([employer]) 24-hours a day, 7 days a week at [phone]. There is a crisis stabilization center on the south side of the hospital campus that is open from 11 AM to 9 PM daily. Return for anything that you are concerned about and feel needs emergency department evaluation. 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
--- NOTE | 2022-09-20 12:30 | XR_ITS ---
WS: [id number] Exam: XR chest 1V portable [id number] Date/Time of Exam: 09/20/2022 12:33 PM Reason For Exam: cp Comparison 09/02/2022. Findings: The lungs are clear and fully expanded. Costophrenic angles are sharp. No infiltrates. Bronchovascula r relief appears normal. Cardiac silhouette is unremarkable. Bony elements are intact. XR/XR chest 1V portable [id number] IMPRESSION: Unremarkable chest radiograph.
--- NOTE | 2022-09-20 12:31 | ECG_ITS ---
[facility] Test Date: 2022-09-20 Pat Name: Elian Parson Department: Room: Gender: Male Or Director: : 1985 Requested By: Mark Sylvester Order Number: [id number] Alatorre MD: Diamond Larry M.D. Measurements Intervals [place] Rate: 101 P: 78 AK: 136 QRS: -21 QRSD: 99 T: 66 QT: 335 QTc: 435 Interpretive Statements SINUS TACHYCARDIA BORDERLINE LEFT AXIS DEVIATION [QRS AXIS < -20] Compared to ECG 07/12/2022 02:05:23 Sinus bradycardia no longer present Electronically Signed On 09-21-2022 6:58:19 CDT by Diamond Larry M.D. [id number]
[2022-09-20 12:47] LABS: Basophils # 0.1 10^3/uL (0.0-0.1); Basophils % 0.3 %; Eosinophils % 0.3 %; Hematocrit 54.8 % (42.0-52.0); Hemoglobin 17.9 g/dL (11.7-16.6); Lymphocytes # 1.7 10^3/uL (0.8-4.8); Lymphocytes % 11.6 %; Mean Corpuscular HGB Conc 32.7 g/dL (30.0-36.0); Mean Corpuscular Hemoglobin 29.5 pg (28.0-34.0); Mean Corpuscular Volume 90.4 fl (80-94); Mean Platelet Volume 11.4 fL (7.4-10.4); Monocytes # 0.8 10^3/uL (0.2-0.9); Monocytes % 5.3 %; Neutrophils # 11.96 10^3/uL (1.8-7.7); Nucleated Red Blood Cells % 0 %; Platelet Count 366 10^3/cmm (130-400); Red Blood Count 6.06 10^6/uL (4.1-5.3); Red Cell Distribution Width 12.6 % (12.1-15.1); White Blood Count 14.6 10^3/uL (4.0-10.0)
--- NOTE | 2022-09-20 12:54 | PC.PHAR ---
pt states he hasnt been taking medications pt states his got mad at him and threw away his meds-ext shows cyclobenzaprine 10mg tid prn filled 09/04/22 5d/s-lyrica 75mg bid written 09/09/22-oxycodone 5mg q4h prn filled 09/04/22 2d/s-prednisone 20mg 20mg tid x3 days 20mg bid x2 days and then 20mg po daily for 2 days pt states never got to takes those medications-
[2022-09-20] MEDS: sodium chloride 0.9% 1,000 ML 999 ML IV (13:05)
[2022-09-20] MEDS: morphine 4 mg/mL SDV 1 mL IVP (13:05)
[2022-09-20 13:07] LABS: D Dimer <= 0.27 ug/mIFEU (0-0.59)
[2022-09-20 13:09] LABS: Troponin(5th) Baseline 6 ng/L (0-15)
[2022-09-20 13:15] LABS: Alanine Aminotransferase 30 U/L (0-41); Albumin Level 5.1 g/dL (3.5-5.2); Alkaline Phosphatase 59 U/L (40-130); Anion Gap 21.2 (5-19); Aspartate Amino Transferase 16 U/L (0-40); Blood Urea Nitrogen 11 mg/dL (6-20); Calcium 9.7 mg/dL (8.5-10.5); Carbon Dioxide 24 mmol/L (22-29); Chloride 97 mmol/L (98-107); Glomerular Filtration Rate 83.2 mL/min (90-130); Glucose 94 mg/dL (65-115); Lipase 19 U/L (13-60); NT Pro B Type Natriuretic Pept 36 pg/mL (0-125); Osmolality Calculated 285 mOsm/kg (285-295); Potassium 4.2 mmol/L (3.5-5.1); Sodium 138 mmol/L (136-145); Total Bilirubin 1.4 mg/dL (0.15-1.2); Total Protein 8.1 g/dL (6.6-8.7)
[2022-09-20 13:19] VITALS: BP 110/76; PULSE 78; RESP 18; O2SAT 99
[2022-09-20 13:40] LABS: SARS Covid-2 Antigen negative (Negative)
--- NOTE | 2022-09-20 14:31 | ECG_ITS ---
[facility] Test Date: 2022-09-20 Pat Name: Elian Parson Department: Room: Gender: Male Acquisition Lead: : 1985 Requested By: Mark Sylvester Order Number: [id number] Alatorre MD: Diamond Larry M.D. Measurements Intervals [place] Rate: 67 P: 59 RI: 151 QRS: 23 QRSD: 93 T: 28 QT: 383 QTc: 407 Interpretive Statements SINUS RHYTHM Compared to ECG 09/20/2022 12:26:52 Sinus tachycardia no longer present Electronically Signed On 09-21-2022 7:00:15 CDT by Diamond Larry M.D. [id number]
[2022-09-20 15:09] LABS: Troponin 5 2HR Delta 0 ABS# (0-10)
[2022-09-20 15:44] VITALS: BP 128/96; PULSE 74; RESP 14; O2SAT 97
== END 2022-09-20 15:48 | disposition home or self-care (01) ==
PROVIDERS: Emergency Provider Emergency Medicine; PCP Family Medicine
DX: R07.2 Precordial pain (principal); F43.9 Reaction to severe stress, unspecified; R00.0 Tachycardia, unspecified; R94.31 Abnormal electrocardiogram [ECG] [EKG]; E86.0 Dehydration
CPT/HCPCS: 36415; 71045; 80053; 83690; 83880; 84484; 85025; 85378; 87426; 93005; 96361; 96374; 99285; J2270; J7030

== ENCOUNTER 2022-10-03 07:04 | Emergency (ER) | payer MEDICAID, SELFPAY ==
[2022-10-03 07:17] VITALS: BP 158/96; PULSE 76; TEMP 36.3; O2SAT 99; BMI 28.1
[2022-10-03 07:24] VITALS: BP 158/96; PULSE 76; RESP 12; TEMP 36.6; O2SAT 98
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
--- NOTE | 2022-10-03 07:34 | XR_ITS ---
WS: [id number] Cervical spine, 4 views, 10/03/2022 Clinical Data: fall Comparison: Cervical spine, 11/17/2018 Findings: No compression fractures are seen. The disc heights are normal. There is no prevertebral so ft tissue swelling. The odontoid is unremarkable. The soft tissues of the neck and the lung apices ar e normal. There is a pellet overlying the medial right scapula which may be in the subcutaneous soft tissue. XR/XR cervical spine 3V* [id number] Impression: Negative cervical spine.
[2022-10-03] MEDS: ketorolac 60 mg/2 mL INJ IM (07:57)
[2022-10-03 08:05] VITALS: BP 144/93; PULSE 59; RESP 16; O2SAT 95
--- NOTE | 2022-10-03 08:19 | PC.PHAR ---
PT STATES HE TAKES NO MEDICATIONS AND NO OVER THE COUNTER VITAMINS, SUPPLEMENTS, OR ASPIRIN
[2022-10-03 08:59] VITALS: BP 145/89; PULSE 63; RESP 17; O2SAT 98
== END 2022-10-03 09:14 | disposition home or self-care (01) ==
PROVIDERS: Emergency Provider Physician Assistant; PCP Family Medicine
DX: S19.9XXA Unspecified injury of neck, initial encounter (principal); Z87.891 Personal history of nicotine dependence; I10 Essential (primary) hypertension; E78.5 Hyperlipidemia, unspecified; W18.2XXA Fall in (into) shower or empty bathtub, initial encounter
CPT/HCPCS: 72040; 96372; 99284; J1885

== ENCOUNTER 2022-10-21 18:27 | Outpatient (CLI) | payer MEDICAID, SELFPAY ==
--- NOTE | 2022-10-21 18:49 | XR_ITS ---
WS: [id number] EXAMINATION: XR chest 2V* [id number] REASON FOR EXAM: HEMOPTYSIS COMPARISON: 09/20/2022 ORDER DATE: 10/21/2022 6:49 PM FINDINGS: The lungs are clear of infiltrate. The cardiac and mediastinal outlines are unremarkable. There ar e no significant pleural effusions . No significant abnormalities are noted in the spine or remainder of the bony thorax. IMPRESSION: NO ACUTE PULMONARY CHANGE.
== END 2022-10-21 18:28 | disposition home or self-care (01) ==
LOC: RAD 18:30
PROVIDERS: PCP Family Medicine; Visit Provider Family Medicine
DX: R04.2 Hemoptysis (principal)
CPT/HCPCS: 71046

== ENCOUNTER 2022-10-30 07:15 | Outpatient (CLI) | payer MEDICAID, SELFPAY ==
--- NOTE | 2022-10-30 07:23 | MR_ITS ---
WS: [id number] MRI CERVICAL SPINE NONCONTRAST TECHNIQUE: Sagittal T1, T2 and STIR imaging. Axial T2, gradient, and fiesta imaging. CLINICAL INFORMATION: PARESTHESIA LEG/LUMBAR BACK PAIN W/RADICULOPATHY COMPARISON: CT cervical 2019 FINDINGS: Mild compression deformity C7 vertebral body is unchanged compared to previous. No high-grade central canal stenosis. Cord signal is normal. C2-C3: Mild facet arthropathy. Spinal canal and foramen are patent. C3-C4: Mild facet arthropathy. Mild LEFT foraminal narrowing. Spinal canal is patent. C4-C5: Mild facet arthropathy. Mild LEFT and no significant RIGHT bony foraminal narrowing. Mild face t arthropathy. C5-C6: Mild LEFT and no significant RIGHT foraminal narrowing. Mild facet arthropathy. Mild disc oste ophytic ridging. Tiny annular fissure. C6-C7: Tiny shallow LEFT paracentral protrusion with a small annular fissure. Mild to moderate LEFT a nd no RIGHT foraminal narrowing. Mild facet arthropathy. Osteophytic ridging. C7-T1: Mild LEFT bony foraminal narrowing. Spinal canal and RIGHT foramen are patent. Mild facet arth ropathy. IMPRESSION: 1. Cord signal is normal. No high-grade central canal stenosis. 2. Mild to moderate bony foraminal narrowing LEFT C5-C6 and LEFT C6-C7. 3. Shallow tiny LEFT paracentral protrusion C6-7 with a small annular fissure. 4. Mild bony foraminal narrowing LEFT C3-C4 and LEFT C4-C5. 5. Mild facet arthropathy described above.
--- NOTE | 2022-10-30 07:23 | MR_ITS ---
WS: [id number] MRI HEAD WITHOUT CONTRAST TECHNIQUE: Sagittal T1, T2 axial, T2 axial FLAIR, axial and coronal T1 images, axial susceptibility w eighted imaging, axial diffusion weighted images, and coronal T2 images were obtained. CLINICAL INFORMATION: PARESTHESIA,LEG ARM/SYNCOPE COLLAPSE COMPARISON: CT 03/11/2022 and head MRI 09/20/2021 FINDINGS: No evidence of restricted diffusion to suggest acute ischemia. Ventricular system and basilar cistern s are patent. No suspicious intracranial signal normalities. Normal chacko-white differentiation. No significant pare nchymal volume loss. Normal posterior fossa. Normal vascular flow voids at the skull base. No extra-axial fluid collection s. No evidence of mass or mass effect. Paranasal sinuses are well aerated. Mucosal thickening in the mastoid air cells. Normal posterior nasopharynx. Normal parapharyngeal fat. Normal optic chiasm and p ituitary infundibulum. Temporal lobes and hippocampal formations are normal in appearance. No hemosid mary on susceptibility weighted images. IMPRESSION: 1. No evidence of restricted diffusion to suggest acute ischemia. 2. No suspicious intracranial signal normalities. 3. No hemosiderin on the susceptibility weighted images. 4. No significant changes since 09/20/2021 5. No other suspicious findings.
--- NOTE | 2022-10-30 07:23 | MR_ITS ---
WS: [id number] MRI LUMBAR SPINE NONCONTRAST TECHNIQUE: Sagittal T1, T2 and STIR imaging. Axial T1 and T2 imaging. CLINICAL INFORMATION: PARESTHESIA OF ARM/NECK PAIN COMPARISON: CT 2020 FINDINGS: Mild lumbar curve. No acute compression. No high-grade central canal stenosis. Mild disc bulging wors e at L5-S1. L1-L2: Normal. L2-L3: Mild facet arthropathy. Spinal canal and foramen are patent. L3-L4: No significant disc bulging. Mild facet arthropathy. Spinal canal and foramen are patent. L4-L5: Minimal annular bulging. Mild facet arthropathy. Spinal canal and foramen are patent. L5-S1: Small central disc protrusion with slight effacement of the ventral thecal sac. Mild LEFT and no significant RIGHT foraminal narrowing. Mild facet arthropathy. Visualized pelvic bony structures: Normal. Paravertebral soft tissues: Normal. IMPRESSION: 1. Mild lumbar curve. No acute compression. No high-grade central canal stenosis. 2. Small central disc protrusion L5-S1 with slight effacement of the ventral thecal sac. 3. Mild LEFT L5-S1 foraminal narrowing. 4. Mild facet arthropathy L4-L5 and L5-S1. 5. Tiny disc protrusion in the cervical spine on the disease education specialist imaging at C6-7.
== END 2022-10-30 07:16 | disposition home or self-care (01) ==
PROVIDERS: PCP Family Medicine; Visit Provider Family Medicine
DX: R20.2 Paresthesia of skin (principal); R55 Syncope and collapse; M54.2 Cervicalgia; M54.16 Radiculopathy, lumbar region; M51.27 Other intervertebral disc displacement, lumbosacral region; M47.817 Spondylosis without myelopathy or radiculopathy, lumbosacral region; M48.02 Spinal stenosis, cervical region; M47.812 Spondylosis without myelopathy or radiculopathy, cervical region
CPT/HCPCS: 70551; 72141; 72148

== ENCOUNTER 2022-11-06 21:30 | Emergency (ER) | payer MEDICAID, SELFPAY ==
[2022-11-06 21:38] VITALS: BP 99/63; PULSE 65; RESP 16; TEMP 36.5; O2SAT 96; BMI 26.6
--- NOTE | 2022-11-06 21:56 | ED_ITS ---
HPI - General Adult General: Chief complaint: General Medical Stated complaint: shoulders down is numb Time Seen by Provider: 11/06/22 21:43 Source: patient Mode of arrival: wheelchair Limitations: no limitations History of Present Illness: Patient presents to the emergency department [facility] reporting episode of syncope in the shower causing him to fall. Patient now reports numbness from the neck down but states he did not hit his head. Chart review shows patient had the exact same situation approximately 1 month ago where he indicated a syncopal episode in the shower causing him to fall and become injured. He reported numbness at that time as well. Further chart review shows patient has been complaining of various extremity and body numbness for over a year. Patient has had complaints of neck, back, and chest pains which have all been evaluated recently with Holter monitor, echo/stress test, CTA of the head and neck, and most recently- just a few days ago, MRI of the head, neck, and lumbar region. Patient indicates he was told that his head is about to disconnect from his neck. He states he has been referred to neurosurgery for neck and back surgery. Review of the patient's MRI indicated some mild facet arthropathy. He states they told him that his discs were blown out . MRI reveals reading of a C6-C7 tiny shallow left paracentral protrusion. Chart review also indicates he told the emergency room provider a month ago he was having approximately 4 episodes of syncope a day but, he indicated to me he only has 1 every few weeks. However, he does admit that this is part of his chronic issues which he has been having for 8+ years including his chronic neck and back pain. Patient states he is numb. I asked how he got to the emergency department and he indicated he drove his own self. He also brought his two preteen sons with him to the ER [facility]. Patient reports approximately 3 hours ago he took an Ultram, blood pressure pill, and trazodone. I asked the patient if he was about to go to bed at 7 PM when he took his medications and he indicated he does not go to bed until approximately 1 AM. He is currently asking for something for pain. He is also requesting a soft c-collar and a back brace be provided to him today. Review of Systems General: Reports: 10 or more systems reviewed and unremarkable except in HPI and below PFS ED PFSH: Medical History Cardiomyopathy Cardiopulmonary arrest HTN (hypertension) Hyperlipidemia Psychiatric care Surgical History H/O coronary angiogram History of surgery Stomach surgery as a Family History Father CAD (coronary artery disease) Myocardial infarction Family/Other Myocardial infarction Stroke CAD (coronary artery disease) Grandfather Stroke Denies family history of Diabetes Social History Smoking and tobacco status: former smoker Alcohol intake: current Alcohol intake frequency: holidays/special occasions only Substance/Drug Use: never Lives independently: Yes Household members: spouse Marital status: Number of children: 4 Physical Exam Const: COMMON NORMALS: no acute distress, patient oriented x3, healthy appearing and alert HENMT: COMMON NORMALS: normocephalic, atraumatic, hearing grossly normal bilaterally, Normal external nose present and moist oral mucous membranes HEAD & SCALP: normocephalic and atraumatic NOSE: Normal external nose present Eye: COMMON NORMALS: Equal, round and reactive pupils present, EOMs intact bilaterally and conjunctivae normal CONJUNCTIVA: Yes conjunctivae normal PUPIL: Yes Equal, round and reactive pupils present Neck/C-Spine: COMMON NORMALS: full ROM, no meningeal signs and no JVD Lymph: LYMPHATIC: no lymphadenopathy noted Resp: COMMON NORMALS: normal respiratory effort, No retractions and No use of accessory muscles Cardio: COMMON NORMALS: no JVD, regular rate and Peripheral pulses 2+ throughout RATE: regular rate PERIPHERAL PULSES: Peripheral pulses 2+ throughout : COMMON NORMALS: Yes no CVA tenderness BLADDER/KIDNEY EXAM: Yes no CVA tenderness Back/Pelvis: COMMON NORMALS: no CVA tenderness, thoraco-lumbar ROM normal and straight leg raise negative bilaterally Extremity: COMMON NORMALS: normal to inspection, full ROM, no joint enlargement and no calf tenderness NARRATIVE EXTREMITY EXAM: Patient ambulatory and weightbearing upon arrival to the ER-per patient report but, brought back in a wheelchair by his sons. GENERAL: Yes normal exam except as noted Neuro: COMMON NORMALS: patient oriented x3, CN's II-XII intact bilaterally, moves all extremities, no focal motor deficits and no sensory deficits noted SENSORIUM/ORIENTATION: Yes alert MENINGEAL SIGNS: Yes no meningeal signs OTHER: Patient is moving all of his extremities in the bed. Upon reinspection, patient was found to be on his cell phone using his hands. Patient reports not being able to feel a blunt tip needle on his feet and fingertips but states his lack o f sensation to these areas is the same on both sides. Patient's cranial nerves are fully intact. Patient has no slurred speech. No facial droop. No one- sided body weakness appreciated. Course Vital Signs: Vital signs: Vital Signs Temperature 97.7 F 11/06/22 21:38 Pulse Rate 59 L 11/06/22 22:56 Respiratory Rate 27 H 11/06/22 22:56 Blood Pressure 107/60 11/06/22 22:56 Pulse Oximetry 97 11/06/22 22:56 Oxygen Delivery Me thod Room Air 11/06/22 22:22 MDM - General Adult Medical Decision Making Patient reports a syncopal episode tonight resulting in injuries and states he is now numb. However, patient was able to ambulate to his vehicle and drive himself here to the emergency department. Patient has had extensive work-up regarding reports of these symptoms in the past. For that reason I did speak at length with Dr. Fleming. After going through the patient's chart and seeing patient has already had a Holter, echo, stress, CTA, and most recently an MRI without any acute findings and knowing patient is being referred on to a neurologist by his primary care doctor, Dr. Fleming indicates no further possible imaging is available for patient's symptom evaluation at this time. Given that the patient has taken Ultram and trazodone within the last 3 hours and, is driving himself tonight, patient is not given narcotic pain medication. Patient was given steroid, NSAID, and a first dose of gabapentin. Continued prescription for gabapentin, Medrol Dosepak, and tizanidine prescribed. Explained to the patient that we do not keep TLSO braces here and, he would not qualify for one as he has no back fracture. However, patient is wanting a c- collar since his estranged took his and threw it away. Explained that his choice to wear a c-collar would be purely at his request to try and achieve a higher level of comfort rather than actual treatment of any chronic issues. Patient needs to notify his primary care doctor of his evaluation here in the emergency department and needs to keep the upcoming appointment to see neurology. Differential Diagnosis DDX: chronic pain, radiculopathy, muscle spasm, drug seeking, DDD, facet syndrome Discharge Plan Discharge Patient Disposition: Home Clinical Impression: Chronic neck and back pain Condition: Stable Prescriptions: New tizanidine 4 mg tablet 4 mg PO Q8H PRN (Reason: muscle spasticity) Qty: 21 0RF gabapentin 300 mg capsule See Rx Instructions .ROUTE .COMPLEX Qty: 20 0RF Rx Instructions: take one cap two times a day tomorrow, then take one tablet three times a day until gone methylprednisolone 4 mg tablets,dose pack See Rx Instructions PO .COMPLEX Qty: 21 0RF Rx Instructions: orally per package directions No Action cyclobenzaprine 10 mg tablet 10 mg PO TID Qty: 14 0RF Discharge Orders: Discharge ED (Routine); Ordered 11/06/22 Ordered By: Esthela Austin Referrals: Bunny Parry MD [Primary Care Provider] - Discharge Diet: Usual diet Discharge Activity: Increase activity as tolerated Patient Instructions: Lumbar Radiculopathy (ED), Cervical Radiculopathy (ED) Activity Restrictions/Additional Instructions: After discussing with the emergency room physician here, we did administer medication for you and have also prescribed medication to continue taking tomorrow. We encourage you to keep following with neurology for continued monitoring and follow-up. Coding Level of Care Code ED Aircraft Motor Mechanic for Kelly Alcantara
[2022-11-06 22:22] VITALS: BP 102/61; PULSE 61; RESP 17; O2SAT 94
[2022-11-06] MEDS: gabapentin 300 mg Capsule PO (22:29)
[2022-11-06] MEDS: dexamethasone 10 mg/mL INJ IM (22:29)
[2022-11-06] MEDS: ketorolac 60 mg/2 mL INJ IM (22:31)
[2022-11-06 22:56] VITALS: BP 107/60; PULSE 59; RESP 27; O2SAT 97
--- NOTE | 2022-11-06 22:59 | PC.NURSE ---
pt requested c-collar for neck pain, applied c-collar at discharge for pt comfort. no acute findings.
== END 2022-11-06 22:59 | disposition home or self-care (01) ==
PROVIDERS: Emergency Provider Physician Assistant; PCP Family Medicine
DX: G89.29 Other chronic pain (principal); M54.2 Cervicalgia; M54.9 Dorsalgia, unspecified; Z87.891 Personal history of nicotine dependence; I10 Essential (primary) hypertension; E78.5 Hyperlipidemia, unspecified
CPT/HCPCS: 96372; 99284; J1100; J1885

== ENCOUNTER 2022-11-09 14:29 | Emergency (ER) | payer MEDICAID, SELFPAY ==
[2022-11-09 14:42] VITALS: BP 111/67; PULSE 71; RESP 16; TEMP 37; O2SAT 93; BMI 25.0
--- NOTE | 2022-11-09 14:57 | ED_ITS ---
HPI - Weakness General: Chief complaint: Weakness Stated complaint: weakness Time Seen by Provider: 11/09/22 14:44 Source: patient Mode of arrival: ambulatory History of Present Illness: 37-year-old male presents emergency room complaining of generalized weakness and fatigue. He took gabapentin tizanidine and possibly Flexeril as well as a tramadol and some other pain medication that he could not identify. This caused severe drowsiness. He presented to the emergency room with concerns no recent trauma or fall patient has had a chronic neck problem for which he is prescribed these medications. No other injury no recent illness. MD Complaint: generalized weakness Location: generalized Severity: mild Relieving factors: none Exacerbating factors: none Associated symptoms: Denies chest pain, chills, confusion, melena, decreased appetite, diaphoresis, dysuria, easy bruising, fever(s), headache(s), myalgias, nausea, rash, short of breath, syncope or vomiting Review of Systems Const: Denies: fever(s), chills or diaphoresis ENMT: Denies: throat pain, ear or mastoid pain, nasal discharge or nasal congestion Card: Denies: chest pain or syncope Resp: Denies: dyspnea, productive cough or non-productive cough GI: Denies: nausea, vomiting or melena : Denies: dysuria Skin/Breast: Denies: rash or pruritus Neuro: Denies: headache(s) or confusion Donnie/Lymph: Denies: easy bruising PFS ED PFSH: Medical History Cardiomyopathy Cardiopulmonary arrest HTN (hypertension) Hyperlipidemia Psychiatric care Surgical History H/O coronary angiogram History of surgery Stomach surgery as a Family History Father CAD (coronary artery disease) Myocardial infarction Family/Other Myocardial infarction Stroke CAD (coronary artery disease) Grandfather Stroke Denies family history of Diabetes Social History Smoking and tobacco status: former smoker Alcohol intake: current Alcohol intake frequency: holidays/special occasions only Substance/Drug Use: never Lives independently: Yes Household members: spouse Marital status: Number of children: 4 Physical Exam Const: GENERAL APPEARANCE: cooperative and comfortable ORIENTATIO N/CONSCIOUSNESS: Yes oriented to person, Yes oriented to place and Yes oriented to time HENMT: COMMON NORMALS: normocephalic, atraumatic and hearing grossly normal bilaterally HEAD & SCALP: normocephalic and atraumatic Resp: COMMON NORMALS: normal respiratory effort, No retractions, No use of accessory muscles and clear to auscultation bilaterally AUSCULTATION: clear to auscultation bilaterally Cardio: COMMON NORMALS: regular rate, regular rhythm and No murmurs present (Cardio) RATE: regular rate RHYTHM: regular rhythm GI: COMMON NORMALS: Soft to palpation and No hepatosplenomegaly present AUSCULTATION: Yes normoactive bowel sounds PALPATION: Yes Soft to palpation, No Tenderness to palpation present (GI), No Guarding due to palpation present (GI) and Yes No hepatosplenomegaly present Extremity: COMMON NORMALS: normal to inspection, capillary refill normal, no clubbing, cyanosis or edema, no calf tenderness and no pedal edema Neuro: SENSORIUM/ORIENTATION: Yes oriented to person, Yes oriented to place and Yes oriented to time Skin: COMMON NORMALS: no rashes or lesions noted GENERAL SKIN EXAM: no rashes or lesions noted Course Vital Signs: Vital signs: Vital Signs Temperature 98.6 F 11/09/22 14:42 Pulse Rate 58 L 11/09/22 16:53 Respiratory Rate 18 11/09/22 16:53 Blood Pressure 132/70 11/09/22 16:53 Pulse Oximetry 97 11/09/22 16:53 Oxygen Delivery Me thod Room Air 11/09/22 14:42 MDM - Weakness Medical Decision Making Labs reviewed. Patient initially arrived here was quite sedate but arousable was able answer questions during the period of time his lab work was done he became much more awake and alert. He does have some mild hypokalemia he was given p.o. supplement and advised to follow-up with his primary care doctor next week to recheck his potassium. On his old medicine list he had Flexeril as well as tizanidine. I suspect this was medication side effects and talking to him I think he may have taken both as well as the tramadol and another pain medicine that he received from a friend I think a combination of all of these seem to make him quite sedate. That is resolved he is awake and alert feeling fine he has no symptoms wishes to go he was bradycardic but his blood pressure remained well the whole time he was not orthostatic when he stood he does not get lightheaded or dizzy. Will discharge home discussed medications also discussed his hypokalemia recheck his potassium with his primary care doctor this coming week Medical Records I reviewed the patient's medical records. Lab Data I reviewed the patient's lab results. 11/09/22 14:52 11/09/22 14:52 Laboratory Results WBC 9.30 10^3/uL (3.29-11.43) 11/09/22 14:52 RBC 4.53 10^6/uL (3.85-5.65) 11/09/22 14:52 Hgb 13.80 g/dL (11.27-16.99) 11/09/22 14:52 Hct 42.4 % (37-53) 11/09/22 14:52 MCV 93.6 fl (82-101) 11/09/22 14:52 MCH 30.5 pg (27-33) 11/09/22 14:52 MCHC 32.5 g/dL (30-55) 11/09/22 14:52 RDW 12.8 % (12.1-15.1) 11/09/22 14:52 Plt Count 233 10^3/cmm (157-399) 11/09/22 14:52 MPV 11.9 fL (7.4-10.4) H 11/09/22 14:52 Neut % (Auto) 76.5 % 11/09/22 14:52 Lymph % (Auto) 14.3 % 11/09/22 14:52 [place] % (Auto) 8.0 % 11/09/22 14:52 Eos % (Auto) 0.5 % 11/09/22 14:52 Baso % (Auto) 0.2 % 11/09/22 14:52 Neut # (Auto) 7.11 10^3/uL (1.8-7.7) 11/09/22 14:52 Lymph # (Auto) 1.3 10^3/uL (0.8-4.8) 11/09/22 14:52 [place] # (Auto) 0.7 10^3/uL (0.2-0.9) 11/09/22 14:52 Eos # (Auto) 0.1 10^3/uL (0.0-0.8) 11/09/22 14:52 Baso # (Auto) 0.0 10^3/uL (0.0-0.1) 11/09/22 14:52 Nucleated RBC % (auto) 0 % 11/09/22 14:52 Nucleated RBCs # 0.0 /100WBC 11/09/22 14:52 Sodium 138 mmol/L (136-145) 11/09/22 14:52 Potassium 2.9 mmol/L (3.5-5.1) L 11/09/22 14:52 Chloride 101 mmol/L (98-107) 11/09/22 14:52 Carbon Dioxide 22 mmol/L (22-29) 11/09/22 14:52 Anion Gap 17.9 (5-19) 11/09/22 14:52 BUN 12 mg/dL (6-20) 11/09/22 14:52 Creatinine 1.2 mg/dL (0.7-1.2) 11/09/22 14:52 GFR Calculation 67.4 mL/min (90-130) L 11/09/22 14:52 Glucose 166 mg/dL (65-115) H 11/09/22 14:52 Calculated Osmolality 290 mOsm/kg (285-295) 11/09/22 14:52 Calcium 8.1 mg/dL (8.5-10.5) L 11/09/22 14:52 Total Bilirubin 0.2 mg/dL (0.15-1.2) 11/09/22 14:52 AST 13 U/L (0-40) 11/09/22 14:52 ALT 24 U/L (0-41) 11/09/22 14:52 Alkaline Phosphatase 48 U/L (40-130) 11/09/22 14:52 Total Protein 5.6 g/dL (6.6-8.7) L 11/09/22 14:52 Albumin 3.9 g/dL (3.5-5.2) 11/09/22 14:52 Globulin 1.7 g/dL (1.3-4.6) 11/09/22 14:52 Discharge Plan Discharge Patient Disposition: Home Clinical Impression: Medication side effects Condition: Stable Prescriptions: No Action metoprolol succinate 50 mg tablet extended release 24 hr 50 mg PO BID simvastatin 10 mg tablet 10 mg PO BEDTIME isosorbide mononitrate 60 mg tablet extended release 24 hr 60 mg PO DAILY tizanidine 4 mg tablet 4 mg PO Q8H PRN (Reason: muscle spasticity) Qty: 21 0RF gabapentin 300 mg capsule See Rx Instructions .ROUTE .COMPLEX Qty: 20 0RF Rx Instructions: take one cap two times a day tomorrow, then take one tablet three times a day until gone methylprednisolone 4 mg tablets,dose pack See Rx Instructions PO .COMPLEX Qty: 21 0RF Rx Instructions: orally per package directions Discharge Orders: Discharge ED (Routine); Ordered 11/09/22 Ordered By: Benigno Manzo Referrals: Bunny Parry MD [Primary Care Provider] - Discharge Diet: Usual diet Discharge Activity: Resume usual activity Patient Instructions: Opioid Safety, Pain Management Activity Restrictions/Additional Instructions: Do not take tizanidine and Flexeril at the same time. Coding Level of Care Code ED Hvac Service Tech for Kelly Alcantara
[2022-11-09 15:08] LABS: Basophils % 0.2 %; Eosinophils # 0.1 10^3/uL (0.0-0.8); Eosinophils % 0.5 %; Hematocrit 42.4 % (37-53); Lymphocytes # 1.3 10^3/uL (0.8-4.8); Lymphocytes % 14.3 %; Mean Corpuscular HGB Conc 32.5 g/dL (30-55); Mean Corpuscular Hemoglobin 30.5 pg (27-33); Mean Corpuscular Volume 93.6 fl (82-101); Mean Platelet Volume 11.9 fL (7.4-10.4); Monocytes # 0.7 10^3/uL (0.2-0.9); Neutrophils # 7.11 10^3/uL (1.8-7.7); Neutrophils % 76.5 %; Nucleated Red Blood Cells % 0 %; Platelet Count 233 10^3/cmm (157-399); Red Blood Count 4.53 10^6/uL (3.85-5.65); Red Cell Distribution Width 12.8 % (12.1-15.1)
[2022-11-09 15:43] LABS: Alanine Aminotransferase 24 U/L (0-41); Albumin Level 3.9 g/dL (3.5-5.2); Alkaline Phosphatase 48 U/L (40-130); Anion Gap 17.9 (5-19); Aspartate Amino Transferase 13 U/L (0-40); Blood Urea Nitrogen 12 mg/dL (6-20); Calcium 8.1 mg/dL (8.5-10.5); Carbon Dioxide 22 mmol/L (22-29); Chloride 101 mmol/L (98-107); Globulin 1.7 g/dL (1.3-4.6); Glomerular Filtration Rate 67.4 mL/min (90-130); Glucose 166 mg/dL (65-115); Osmolality Calculated 290 mOsm/kg (285-295); Sodium 138 mmol/L (136-145); Total Bilirubin 0.2 mg/dL (0.15-1.2); Total Protein 5.6 g/dL (6.6-8.7)
[2022-11-09 15:46] LABS: Potassium 2.9 mmol/L (3.5-5.1)
[2022-11-09 16:53] VITALS: BP 132/70; PULSE 58; RESP 18; O2SAT 97
[2022-11-09] MEDS: potassium chloride oral liq 20 mEq/15 mL UDC 40 MEQ PO (16:57)
== END 2022-11-09 17:51 | disposition home or self-care (01) ==
PROVIDERS: Emergency Provider Family Medicine; PCP Family Medicine
DX: R40.0 Somnolence (principal); T42.6X5A Adverse effect of other antiepileptic and sedative-hypnotic drugs, initial encounter; T42.8X5A Adverse effect of antiparkinsonism drugs and other central muscle-tone depressants, initial encounter; T48.1X5A Adverse effect of skeletal muscle relaxants [neuromuscular blocking agents], initial encounter; T40.425A Adverse effect of tramadol, initial encounter; I10 Essential (primary) hypertension; E78.5 Hyperlipidemia, unspecified; Z87.891 Personal history of nicotine dependence
CPT/HCPCS: 36415; 80053; 85025; 99283

== ENCOUNTER 2022-11-11 06:28 | Outpatient (CLI) | payer MEDICAID, SELFPAY ==
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
[2022-11-11] MEDS: iohexol 350 mg/mL 500 mL Btl (per mL) IV (06:52)
== END 2022-11-11 06:29 | disposition home or self-care (01) ==
PROVIDERS: PCP Family Medicine; Visit Provider Family Medicine
DX: R04.2 Hemoptysis (principal); R63.4 Abnormal weight loss
CPT/HCPCS: 71260; Q9967

== ENCOUNTER → 2022-11-12 07:36 | Outpatient (BNVA) | payer MEDICAID, SELFPAY | PROVIDERS: PCP Family Medicine; Visit Provider Physician Assistant | DX: M50.30 Other cervical disc degeneration, unspecified cervical region (principal); M50.223 Other cervical disc displacement at C6-C7 level; M51.36 Other intervertebral disc degeneration, lumbar region | CPT/HCPCS: 72050; 72110 ==

== ENCOUNTER 2022-11-21 20:15 | Emergency (ER) | payer MEDICAID, SELFPAY ==
[2022-11-21 20:19] VITALS: BP 155/111; PULSE 86; RESP 16; TEMP 36.5; O2SAT 98
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
[2022-11-21 20:32] VITALS: BP 142/87; PULSE 76; RESP 18; O2SAT 98
[2022-11-21] MEDS: sodium chloride 0.9% 250 ML IV (20:46)
[2022-11-21] MEDS: dexamethasone 10 mg/mL INJ IVP (20:48)
[2022-11-21] MEDS: ketorolac 30 mg/mL INJ 15 MG IVP (20:49)
[2022-11-21] MEDS: orphenadrine 30 mg/mL Inj 2 mL 60 MG IVP (20:50)
[2022-11-21] MEDS: metoclopramide 5 mg/mL SDV 2 mL 10 MG IVP (20:52)
[2022-11-21] MEDS: diphenhydrAMINE 50 mg/mL SDV 1mL 12.5 MG IVP (20:54)
[2022-11-21 20:56] VITALS: PULSE 67; RESP 16; O2SAT 100
[2022-11-21 21:16] VITALS: BP 172/97; PULSE 78; RESP 16; O2SAT 99
== END 2022-11-21 21:17 | disposition home or self-care (01) ==
PROVIDERS: Emergency Provider Nurse Practitioner Family; PCP Family Medicine
DX: G43.109 Migraine with aura, not intractable, without status migrainosus (principal); M50.90 Cervical disc disorder, unspecified, unspecified cervical region; I10 Essential (primary) hypertension; E78.5 Hyperlipidemia, unspecified; Z87.891 Personal history of nicotine dependence
CPT/HCPCS: 96374; 96375; 99284; J1100; J1200; J1885; J2360; J2765; J7050

== ENCOUNTER 2022-12-09 20:18 | Emergency (ER) | payer MEDICAID, SELFPAY ==
[2022-12-09 20:20] VITALS: BP 187/108; PULSE 88; RESP 18; TEMP 36.9; O2SAT 99; BMI 25.8
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
[2022-12-09] MEDS: ketorolac 60 mg/2 mL INJ IM (20:36)
== END 2022-12-09 21:10 | disposition home or self-care (01) ==
PROVIDERS: Emergency Provider Physician Assistant; PCP Family Medicine
DX: S90.31XA Contusion of right foot, initial encounter (principal); Z87.891 Personal history of nicotine dependence; I10 Essential (primary) hypertension; E78.5 Hyperlipidemia, unspecified; V03.00XA Pedestrian on foot injured in collision with car, pick-up truck or van in nontraffic accident, initial encounter
CPT/HCPCS: 73610; 73630; 96372; 99284; J1885